=== PATIENT | male | born 1945 | race Caucasian/White ===

== ENCOUNTER 2016-08-16 08:25 | Emergency (ER) | payer OTHER ==
--- NOTE | 2016-08-16 09:44 | ED Physician Documentation ---
History of Present Illness - Stated complaint Stated Complaint: BACK PAIN - Chief complaint Chief Complaint: Back Pain - Additonal information Additional information: hx from pt 71 male R low back pain X a few weeks started a little while after doing abd crunches describes sharp occ twinges no abd pain no fever no incont or hematuria no numbness or weakness somewhat related to movements but was able to go running Review of Systems Constitutional: denies: Fever, Chills Cardiac: denies: Chest pain / pressure GI: denies: Abdominal Pain : denies: Incontinent, Hematuria Musculoskeletal: reports: Back pain Neurologic: denies: Focal weakness, Numbness Endocrine: denies: Easy bruising / bleeding Immunocompromised: denies: Immunocompromised PD PAST MEDICAL HISTORY - Past Medical History Cardiovascular: Other - Present Medications Home Medications: Ambulatory Orders Medication Instructions Recorded Confirmed Aspirin [Adult Low Dose Aspirin EC] 81 mg ORAL DAILY 01/12/16 08/16/16 Atenolol 25 mg ORAL DAILY 01/12/16 08/16/16 Lisinopril 10 mg ORAL DAILY 01/12/16 08/16/16 Simvastatin 40 mg ORAL DAILY 01/12/16 08/16/16 Carisoprodol [Soma] 350 mg PO Q8H PRN #15 tablet 08/16/16 HYDROcod/ACETAM 5/325 [[place] 5/325] 1 ea PO Q6H PRN #10 tablet 08/16/16 Lidocaine Patch 5% [Lidoderm Patch] 1 each TOP DAILY PRN #10 patch 08/16/16 - Allergies Allergies/Adverse Reactions: Allergies Allergy/AdvReac Type Severity Reaction Status Date / Time No Known Drug Allergies Allergy Verified 08/16/16 08:37 - Social History Does the pt smoke?: No Smoking Status: Never smoker PD ED PE NORMAL - Vitals Vital signs reviewed: Yes - Neck Neck: Supple, no meningeal sign - Cardiac Cardiac: RRR - Respiratory Respiratory: No respiratory distress, Clear bilaterally - Abdomen Abdomen: Soft, Non tender, Other (no pulsatile mass) - Back Back: No spinal TTP (and no redness swelling focal bony TTP), Other (pt indicates the site of his pain was right low back near SI joint - no pain now 2/ 2 took vicodin prior to ER viit) - Neuro Neuro: No motor deficit, No sensory deficit, Other (neg SLR, denies saddle anesthesia hip flexion knee ext foot dorsi plantar and great toe ext 5/5, no clonus, patellar DTR 2/4) Results - Vitals Vitals: Vital Signs - 24 hr 08/16/16 08/16/16 08:33 10:46 Temperature 36.2 C L 36.4 C L Heart Rate 58 L 59 L Respiratory 14 18 Rate Blood Pressure 170/88 H 152/83 H O2 Saturation 100 96 Oxygen O2 Source Room air - Labs Labs: Laboratory Tests 08/16/16 09:48 Creatinine 0.7 Estimated GFR (MDRD) 111 - Rads (name of study) CT angio Radiology: See rad report (no AAA or dissection, no bony abn) PD MEDICAL DECISION MAKING - ED course ED course: probably just muscular pain but unable to repsoduce at this time and pt is 71 - will image to rule out aortic etiology etc - CT neg for acute - likely muscular after all will dc Departure - Departure Disposition: 01 Home, Self Care Clinical Impression: Back pain Qualifiers: Back pain location: low back pain Chronicity: acute Back pain laterality: right Sciatica presence: without sciatica Qualified Code(s): M54.5 - Low back pain Condition: Good Instructions: ED Back Care Tips, ED Neck Back Pain General Follow-Up: Nick Greer MD [Primary Care Provider] - Prescriptions: Lidocaine Patch 5% [Lidoderm Patch] 1 each TOP DAILY PRN #10 patch PRN Reason: Pain HYDROcod/ACETAM 5/325 [[place] 5/325] 1 ea PO Q6H PRN #10 tablet PRN Reason: Severe Pain Carisoprodol [Soma] 350 mg PO Q8H PRN #15 tablet PRN Reason: muscle spasm Comments: The labs we did were kidney function. The results were as follows creatinine 0.7 GFR 111 That means your kidneys are fine The CT scan shows no aneurysm or tear of your aorta and no bony problems So the back pain is likely muscular. Take the medications as needed. Consider a massage or chiropractor. Drink plenty of fluids today to flush out the CT contrast And follow up with your PMD about your blood pressure - it was high today Also . . . watch your back for any developing rash - sometimes shingles can cause severe one sided pain days to weeks before the rash shows up - if you develop a red blistered crusting rash, come back to the ER for anti-viral medications
[2016-08-16] MEDS ORDERED: LIDOCAINE PATCH 5% TOP ONE (09:50)
[2016-08-16] MEDS: LIDOCAINE PATCH 5% TOP STA (09:53)
[2016-08-16 10:07] LABS: CREATININE 0.7 mg/dL (0.6-1.2)
[2016-08-16] MEDS: IOPAMIDOL-300 100 ML VIAL IVP ONE (10:43)
--- NOTE | 2016-08-16 11:18 | CT Preliminary Report ---
Exam: CT Abdomen/Pelvis Angio IMPRESSION: 1. No abdominal aortic aneurysm or dissection. 2. Prominent stool in right hemicolon. Question constipation. 3. No bowel obstruction evident. [facility] SITE ID: [id number]
--- NOTE | 2016-08-16 11:21 | CT Report ---
EXAM: CT ANGIOGRAM ABDOMEN AND PELVIS WITH CONTRAST EXAM DATE: 08/16/2016 10:45 AM. CLINICAL HISTORY: Angio abdominal aorta. R low back pain. COMPARISONS: None. TECHNIQUE: Routine helical CT angiogram imaging was performed through the abdomen and pelvis in the a rterial phase. IV contrast: 100 cc Isovue-300. Enteric contrast: No. Reconstructions: Coronal, sagitt al, and 3D MIP reconstructions. In accordance with CT protocol optimization, one or more of the following dose reduction techniques w ere utilized for this exam: automated exposure control, adjustment of mA and/or KV based on patient s ize, or use of iterative reconstructive technique. FINDINGS: Vasculature: No aneurysm or dissection of the abdominal aorta and iliac arteries. Mild atheroscleroti c calcification. The visualized mesenteric and solid organ vascular structures are also within normal limits. Lung Bases: Pacemaker noted. Abdominal Solid Organs: Normal. The liver, spleen, pancreas, adrenal glands, gallbladder and kidneys are normal in size and demonstrate no masses or abnormal enhancement. Peritoneal Cavity: Moderate stool in right hemicolon. Fecalized appearing distal ileal contents khari tible with stasis. No dilated bowel. Appendix not identified. No inflamed appendix evident. Pelvic Organs: Normal. The bladder and visualized pelvic organs are within normal limits. Bones: Large benign hemangioma replacing majority of T12 vertebral body, sparing left posterior aspec t. Multilevel lumbar spine degenerative changes. Lower thoracic spine DISH. Other: None. IMPRESSION: 1. No abdominal aortic aneurysm or dissection. 2. Prominent stool in right hemicolon. Question constipation. 3. No bowel obstruction evident. [facility] Referring Provider Line: [phone] SITE ID: [id number]
[2016-08-16 12:01] VITALS: BP 148/80
== END 2016-08-16 12:00 | disposition home or self-care (01) ==
LOC: ED 08:25
DX: M54.5 Low back pain (principal); Z79.82 Long term (current) use of aspirin
CPT/HCPCS: 36415; 74174; 82565; 99283; 99284

== ENCOUNTER 2018-11-29 10:39 | Outpatient (CLI) | payer MEDICARE ==
--- NOTE | 2018-11-30 10:05 | XRAY Report ---
Reason: COUGH Procedure Date: 11/29/2018 Accession Number: [id number] / [id number] Procedure: WCP - Chest 2 View X-Ray CPT Code: 66579 FULL RESULT: EXAM: CHEST RADIOGRAPHY EXAM DATE: 11/29/2018 10:54 AM. CLINICAL HISTORY: COUGH. Chronic cough. COMPARISON: CHEST 1 VIEW 01/12/2016 9:58 PM. TECHNIQUE: 2 views. FINDINGS: Lungs/Pleura: No focal opacities evident. No pleural effusion. No pneumothorax. Normal volumes. Mediastinum: Atherosclerotic aortic consultations. Dual lead left subclavian pacemaker. Other: Mild right hemidiaphragm elevation as on prior exam. IMPRESSION: No consolidation evident. [facility]
== END 2018-11-29 10:40 | disposition home or self-care (01) ==
LOC: DI.WCP 10:39
PROVIDERS: ATTEND Family Medicine
DX: R05 Cough (principal); I10 Essential (primary) hypertension; E78.5 Hyperlipidemia, unspecified; Z12.5 Encounter for screening for malignant neoplasm of prostate
CPT/HCPCS: 36415; 71046; 80053; 80061; 85025; G0103; 83721; 84153

== ENCOUNTER 2018-11-29 11:08 | Outpatient (CLI) | payer MEDICARE ==
[2018-11-29 18:35] LABS: BASOPHILS % (AUTO) 0.4 %; EOSINOPHILS % (AUTO) 0.4 %; HGB - HEMOGLOBIN 15.1 g/dL (14.0-18.0); LYMPHOCYTES # (AUTO) 0.8 10^3/uL (1.5-3.5); LYMPHOCYTES % (AUTO) 16.2 %; MEAN CORPUSCULAR HEMOGLOBIN 34.2 pg (27.0-31.0); MEAN CORPUSCULAR HGB CONC 33.9 g/dL (32.0-36.0); MEAN CORPUSCULAR VOLUME 100.9 fL (80.0-94.0); MONOCYTES # (AUTO) 0.8 10^3/uL (0.0-1.0); MONOCYTES % (AUTO) 16.2 %; NEUTROPHILS # (AUTO) 3.3 10^3/uL (1.5-6.6); NEUTROPHILS % (AUTO) 65.6 %; PLT - PLATELET COUNT 293 10^3/uL (130-450); RED BLOOD COUNT 4.41 10^6/uL (4.70-6.10); RED CELL DISTRIBUTION WIDTH 12.4 % (12.0-15.0)
[2018-11-29 18:53] LABS: ALBUMIN 4.6 g/dL (3.2-5.5); ALBUMIN/GLOBULIN RATIO 1.8 (1.0-2.2); ALKALINE PHOSPHATASE 66 IU/L (42-121); ALT ALANINE AMINOTRANSFERASE 23 IU/L (10-60); AST ASPARTATE AMINOTRANSFERASE 25 IU/L (10-42); BILIRUBIN,TOTAL 1.3 mg/dL (0.2-1.0); BUN - BLOOD UREA NITROGEN 9 mg/dL (6-20); CALCIUM 9.6 mg/dL (8.5-10.3); CARBON DIOXIDE - CO2 25 mmol/L (21-32); CHLORIDE 98 mmol/L (101-111); CHOL/HDL RATIO 2.6 (<5.0); CHOLESTEROL 188 mg/dL; CREATININE 0.8 mg/dL (0.6-1.2); GFR - MDRD 94 (>89); GLUCOSE 98 mg/dL (70-100); HDL CHOLESTEROL 72 mg/dL; LDL CHOLESTEROL,CALCULATED 101 mg/dL; LDL/HDL RATIO 1.4 (<3.6); SODIUM 135 mmol/L (135-145); TOTAL PROTEIN 7.2 g/dL (6.7-8.2); VLDL CHOLESTEROL 15 mg/dL
== END 2018-11-29 11:09 | disposition home or self-care (01) ==
LOC: LAB.WCP 11:08
PROVIDERS: ATTEND Family Medicine
DX: I10 Essential (primary) hypertension (principal); E78.5 Hyperlipidemia, unspecified; Z12.5 Encounter for screening for malignant neoplasm of prostate
CPT/HCPCS: 36415; 80053; 80061; 83721; 84153; 85025

== ENCOUNTER 2019-11-11 10:52 | Outpatient (CLI) | payer MEDICARE | END 2019-11-11 10:53 | disposition home or self-care (01) | LOC: LAB 10:52 | PROVIDERS: ATTEND Family Medicine | DX: Z11.59 Encounter for screening for other viral diseases (principal) ==

== ENCOUNTER 2021-02-19 07:56 | Outpatient (CLI) | payer MEDICARE, OTHER ==
--- NOTE | 2021-02-19 13:06 | DEXA Report ---
PROCEDURE: Dexa Spine and/or Hip INDICATIONS: OSTEOPENIA TECHNIQUE: Dual energy x-ray absorptiometry (DXA) was performed on a T[employer] System. Regions measur ed are the AP Spine, femoral neck, and if needed forearm. COMPARISON: None. FINDINGS: Lumbar Spine: Bone Mineral Density 1.253 g/cm/cm,T score 0.3, normal bone density Left Femoral Neck: Bone Mineral Density 0.941 g/cm/cm, T score -1.1, osteopenia (T score greater or equal to -1.0: NORMAL) (T score from -1.1 to -2.4: OSTEOPENIA) (T score less than or equal to -2.5 to: OSTEOPOROSIS) Impression: Osteopenia. Patient is at increased risk for fracture. Patients with diagnosis of osteoporosis or osteopenia should have regular bone mineral density assess ment. For those eligible for Medicare, routine testing is allowed once every 2 years. Testing frequ ency can be increased for patients who have rapidly progressing disease or for those who are receivin g medical therapy to restore bone mass. Reviewed by: Kalpesh Velez MD on 02/19/2021 1:04 PM PDT Approved by: Kalpesh Velez MD on 02/19/2021 1:04 PM PDT Station ID: [id number]
== END 2021-02-19 07:57 | disposition home or self-care (01) ==
LOC: DI 07:56
PROVIDERS: ATTEND Nurse Practitioner Adult Health
DX: M85.88 Other specified disorders of bone density and structure, other site (principal)

== ENCOUNTER 2021-09-06 07:56 | Outpatient (CLI) | payer OTHER | END 2021-09-06 07:57 | disposition home or self-care (01) | LOC: LAB 07:56 | PROVIDERS: ATTEND Nurse Practitioner Family | DX: I10 Essential (primary) hypertension (principal); E78.5 Hyperlipidemia, unspecified | CPT/HCPCS: 80053; 80061; 83721; 84443; 85025 ==

== ENCOUNTER 2021-09-07 07:59 | Outpatient (CLI) | payer OTHER ==
[2021-09-07 08:10] LABS: BASOPHILS % (AUTO) 0.5 %; EOSINOPHILS # (AUTO) 0.1 10^3/uL (0.0-0.7); EOSINOPHILS % (AUTO) 1.5 %; HCT - HEMATOCRIT 42.2 % (42.0-52.0); HGB - HEMOGLOBIN 15.4 g/dL (14.0-18.0); LYMPHOCYTES # (AUTO) 0.8 10^3/uL (1.5-3.5); LYMPHOCYTES % (AUTO) 20.6 %; MEAN CORPUSCULAR HEMOGLOBIN 35.5 pg (27.0-31.0); MEAN CORPUSCULAR HGB CONC 36.5 g/dL (32.0-36.0); MEAN CORPUSCULAR VOLUME 97.2 fL (80.0-94.0); MEAN PLATELET VOLUME 8.3 fL (7.4-11.4); MONOCYTES # (AUTO) 0.9 10^3/uL (0.0-1.0); MONOCYTES % (AUTO) 21.6 %; NEUTROPHILS # (AUTO) 2.2 10^3/uL (1.5-6.6); NEUTROPHILS % (AUTO) 55.3 %; PLT - PLATELET COUNT 260 10^3/uL (130-450); RED BLOOD COUNT 4.34 10^6/uL (4.70-6.10); RED CELL DISTRIBUTION WIDTH 12.2 % (12.0-15.0); WHITE BLOOD COUNT 3.9 x10^3/uL (4.8-10.8)
[2021-09-07 08:30] LABS: ALBUMIN 4.1 g/dL (3.2-5.5); ALBUMIN/GLOBULIN RATIO 1.3 (1.0-2.2); ALKALINE PHOSPHATASE 66 IU/L (42-121); ALT ALANINE AMINOTRANSFERASE 25 IU/L (10-60); AST ASPARTATE AMINOTRANSFERASE 26 IU/L (10-42); BUN - BLOOD UREA NITROGEN 11 mg/dL (6-20); CALCIUM 9.4 mg/dL (8.5-10.3); CARBON DIOXIDE - CO2 24 mmol/L (21-32); CHLORIDE 99 mmol/L (101-111); CHOL/HDL RATIO 3.4 (<5.0); CHOLESTEROL 225 mg/dL; CREATININE 0.7 mg/dL (0.6-1.2); GFR - MDRD 109 (>89); GLUCOSE 102 mg/dL (70-100); HDL CHOLESTEROL 67 mg/dL; LDL CHOLESTEROL,CALCULATED 130 mg/dL; LDL/HDL RATIO 1.9 (<3.6); POTASSIUM 4.3 mmol/L (3.5-5.0); SODIUM 133 mmol/L (135-145); TOTAL PROTEIN 7.3 g/dL (6.7-8.2); TRIGLYCERIDES 141 mg/dL; VLDL CHOLESTEROL 28 mg/dL
[2021-09-07 08:40] LABS: THYROID STIMULATING HORMONE 1.05 uIU/mL (0.34-5.60)
== END 2021-09-07 08:00 | disposition home or self-care (01) ==
LOC: LAB 07:59
PROVIDERS: ATTEND Nurse Practitioner Family
DX: I10 Essential (primary) hypertension (principal); E78.5 Hyperlipidemia, unspecified
CPT/HCPCS: 36415; 80053; 80061; 83721; 84443; 85025

== ENCOUNTER 2021-11-29 18:47 | Outpatient (CLI) | payer OTHER | END 2021-11-29 18:48 | disposition critical access hospital (66) | LOC: EMS 18:47 | DX: R55 Syncope and collapse (principal) | CPT/HCPCS: A0425; A0427 ==

== ENCOUNTER 2021-11-29 18:53 | Emergency (ER) | payer OTHER ==
--- NOTE | 2021-11-29 19:29 | ED Physician Documentation ---
PD HPI SYNCOPE - Stated complaint Stated Complaint: SYNCOPE - Chief complaint Chief Complaint: Neuro - History obtained from History obtained from: Patient, Family - History of Present Illness Witnessed: Witnessed Timing - onset: How many minutes ago (60) Duration: Minutes - Additional information Additional information: 76-year-old male with history of vasovagal syncope, pacemaker in place presents by EMS from restaurant for syncopal episode that occurred just prior to arrival. Patient was eating dinner when all of a sudden he slumped forward and went unresponsive for "3 to 4 minutes" per girlfriend. Girlfriend states that there were physician bystanders at the restaurant, who laid him on the floor and measured his pulse. When EMS arrived the patient had returned to his baseline function. In route the patient's blood pressure was 80s systolic, other vital signs within normal limits. girlfriend said has happened in the past, at that time he was evaluated here in the [facility] emergency department and he was told to decrease his dose of blood pressure medications. Patient currently feels fine, denies complaints. He states that this is a typical syncopal episode for him. Girlfriend states that the patient is somewhat obsessive about keeping his blood pressure low and he takes 4 different medications for BP control. Review of Systems Ten Systems: 10 systems reviewed and negative Constitutional: denies: Fever, Chills, Myalgias Ears: denies: Loss of hearing, Ear pain, Drainage/discharge Cardiac: denies: Chest pain / pressure, Palpitations Respiratory: denies: Dyspnea, Cough Neurologic: reports: Syncope. denies: Generalized weakness, Focal weakness, Numbness PD PAST MEDICAL HISTORY - Past Medical History Past Medical History: Yes Cardiovascular: Other - Past Surgical History Cardiovascular: Pacemaker - Present Medications Home Medications: Ambulatory Orders Medication Instructions Recorded Confirmed Aspirin [Adult Low Dose Aspirin EC] 81 mg ORAL DAILY 01/12/16 08/16/16 Atenolol 25 mg ORAL DAILY 01/12/16 08/16/16 Lisinopril 10 mg ORAL DAILY 01/12/16 08/16/16 Simvastatin 40 mg ORAL DAILY 01/12/16 08/16/16 Carisoprodol [Soma] 350 mg PO Q8H PRN #15 tablet 08/16/16 HYDROcod/ACETAM 5/325 [[place] 5/325] 1 ea PO Q6H PRN #10 tablet 08/16/16 Lidocaine Patch 5% [Lidoderm Patch] 1 each TOP DAILY PRN #10 patch 08/16/16 - Allergies Allergies/Adverse Reactions: Allergies Allergy/AdvReac Type Severity Reaction Status Date / Time No Known Drug Allergies Allergy Verified 11/29/21 19:09 - Social History Does the pt smoke?: No Smoking Status: Never smoker Does the pt drink ETOH?: No Does the pt have substance abuse?: No - Immunizations Immunizations are current?: Yes - POLST Patient has POLST: No PD ED PE NORMAL - Vitals Vital signs reviewed: Yes - General General: Alert and oriented X 3, No acute distress, Well developed/nourished - HEENT HEENT: Atraumatic, PERRL, EOMI, Ears normal - Neck Neck: Supple, no meningeal sign, No bony TTP, No adenopathy, C-Spine cleared by NEXUS criteria - Cardiac Cardiac: RRR, No murmur, Strong equal pulses - Respiratory Respiratory: No respiratory distress, Clear bilaterally - Abdomen Abdomen: Soft, Non tender, Non distended, No organomegaly - Male Male : Deferred - Rectal Rectal: Deferred - Back Back: No CVA TTP, No spinal TTP - Derm Derm: Normal color, Warm and dry, No rash - Extremities Extremities: No deformity, No tenderness to palpate, Normal ROM s pain, No edema - Neuro Neuro: Alert and oriented X 3, dispatcher motor vehicle 2-12 intact, No motor deficit, No sensory deficit, Normal speech - Psych Psych: Normal mood, Normal affect Results - Vitals Vitals: Vital Signs - 24 hr 11/29/21 11/29/21 11/30/21 19:05 19:39 01:09 Temperature 37.0 C Heart Rate 60 68 60 Respiratory 13 16 18 Rate Blood Pressure 92/65 86/47 L 126/66 O2 Saturation 95 93 95 Oxygen O2 Source Room air - EKG (time done) 1920 Rate: Rate (enter#) (60) Rhythm: NSR Arp: Normal Intervals: Normal MI (atrial paced) QRS: Normal Ischemia: Normal ST segments - Labs Labs: Laboratory Tests 11/29/21 11/29/21 11/29/21 19:33 19:33 19:33 WBC 5.2 RBC 3.75 L Hgb 13.5 L Hct 37.2 L MCV 99.2 H MCH 36.0 H MCHC 36.3 H RDW 12.6 Plt Count 260 MPV 8.7 Neut # (Auto) 3.4 Lymph # (Auto) 0.8 L [place] # (Auto) 0.8 Eos # (Auto) 0.1 Baso # (Auto) 0.0 Absolute Nucleated RBC 0.00 Nucleated RBC % 0.0 Sodium 133 L Potassium 3.3 L Chloride 99 L Carbon Dioxide 22 Anion Gap 12.0 BUN 13 Creatinine 1.1 Estimated GFR (MDRD) 65 L Glucose 126 H Calcium 9.2 Total Bilirubin 1.0 AST 22 ALT 23 Alkaline Phosphatase 59 Troponin I High Sens 9.8 Total Protein 6.2 L Albumin 3.9 Globulin 2.3 Albumin/Globulin Ratio 1.7 Lipase 39 PD MEDICAL DECISION MAKING - ED course Complexity details: reviewed old records, reviewed results, re-evaluated patient ED course: 76-year-old male, otherwise well-appearing presenting for syncopal episode. Patient does have a history of syncopal episodes, he states that this is similar to previous. Girlfriend at bedside states that the patient is neurotic about his blood pressure and make sure that it stays "very low". Patient's vital signs are unremarkable at this time, patient states that he feels normal and does not even want evaluation. Labs unremarkable. Patient resting comfortably in bed. Unable to contact [employer] for pacemaker interrogation, her machine is not functioning and representatives not able to assist over phone. Patient states that he has a machine at home and he does not want to stay in the ER any longer. He states that he will use the device tomorrow morning to interrogate his pacemaker and if there are any issues whatsoever he will come back for evaluation. Patient understands the risks of leaving early including potential return of syncopal episodes. Patient states he understands but does not want to stay in the hospital any longer and wants to go home.Discharged in stable condition with his girlfriend. Departure - Departure Disposition: 01 Home, Self Care Clinical Impression: Syncopal episodes Condition: Stable Instructions: ED Fainting Unkn Cause Comments: Reduce your dosages of blood pressure medications as this could be contributing to your syncope. Use your machine at home to interrogate your pacemaker. If you have any further episodes of syncope, experience chest pain, shortness of breath, any other symptoms please return immediately for repeat evaluation. Discharge Date/Time: 11/30/21 01:54
[2021-11-29 19:42] LABS: BASOPHILS % (AUTO) 0.4 %; EOSINOPHILS # (AUTO) 0.1 10^3/uL (0.0-0.7); EOSINOPHILS % (AUTO) 1.2 %; HCT - HEMATOCRIT 37.2 % (42.0-52.0); HGB - HEMOGLOBIN 13.5 g/dL (14.0-18.0); LYMPHOCYTES # (AUTO) 0.8 10^3/uL (1.5-3.5); LYMPHOCYTES % (AUTO) 16.2 %; MEAN CORPUSCULAR HGB CONC 36.3 g/dL (32.0-36.0); MEAN CORPUSCULAR VOLUME 99.2 fL (80.0-94.0); MEAN PLATELET VOLUME 8.7 fL (7.4-11.4); MONOCYTES # (AUTO) 0.8 10^3/uL (0.0-1.0); MONOCYTES % (AUTO) 15.5 %; NEUTROPHILS # (AUTO) 3.4 10^3/uL (1.5-6.6); NEUTROPHILS % (AUTO) 66.1 %; PLT - PLATELET COUNT 260 10^3/uL (130-450); RED BLOOD COUNT 3.75 10^6/uL (4.70-6.10); RED CELL DISTRIBUTION WIDTH 12.6 % (12.0-15.0); WHITE BLOOD COUNT 5.2 x10^3/uL (4.8-10.8)
[2021-11-29 19:55] LABS: ALBUMIN 3.9 g/dL (3.2-5.5); ALBUMIN/GLOBULIN RATIO 1.7 (1.0-2.2); CALCIUM 9.2 mg/dL (8.5-10.3); CREATININE 1.1 mg/dL (0.6-1.2); POTASSIUM 3.3 mmol/L (3.5-5.0); TOTAL PROTEIN 6.2 g/dL (6.7-8.2)
--- NOTE | 2021-11-29 20:15 | XRAY Report ---
PROCEDURE: Chest 1 View X-Ray INDICATIONS: Chest pain TECHNIQUE: One view of the chest was acquired. COMPARISON: 11/29/2018 FINDINGS: Surgical changes and devices: Left cardiac pacer device is in place. Lungs and pleura: Mild hazy opacities of the bilateral costophrenic angles with blunting of the right costophrenic angle. It is compatible with small bilateral pleural effusions larger on the right. Str eaky right basilar opacities noted. Mild patchy left basilar opacity. No focal consolidation. No pneu mothorax. Mediastinum: Mediastinal contours appear normal. Heart size is normal. Bones and chest wall: No suspicious bony lesions. Overlying soft tissues appear unremarkable. IMPRESSION: Small right greater than left bilateral pleural effusions with patchy bibasilar opacities. Findings a re likely related to atelectasis. Early developing airspace disease not excluded if clinically approp riate. Recommend follow-up imaging to document resolution of findings and return to baseline exam. Reviewed by: Kalpesh Velez MD on 11/29/2021 8:14 PM PDT Approved by: Kalpesh Velez MD on 11/29/2021 8:14 PM PDT Station ID: [id number]
[2021-11-30 01:41] VITALS: BP 126/66
== END 2021-11-30 01:54 | disposition home or self-care (01) ==
LOC: ED 18:53
DX: R55 Syncope and collapse (principal)
CPT/HCPCS: 36415; 80053; 83690; 84484; 85025; 93005; 99283; 99284

== ENCOUNTER 2022-01-10 08:17 | Outpatient (CLI) | payer OTHER ==
[2022-01-10 12:29] LABS: BASOPHILS % (AUTO) 0.1 %; EOSINOPHILS % (AUTO) 0.4 %; HCT - HEMATOCRIT 42.5 % (42.0-52.0); HGB - HEMOGLOBIN 15.1 g/dL (14.0-18.0); LYMPHOCYTES # (AUTO) 0.7 10^3/uL (1.5-3.5); LYMPHOCYTES % (AUTO) 10.1 %; MEAN CORPUSCULAR HEMOGLOBIN 35.3 pg (27.0-31.0); MEAN CORPUSCULAR HGB CONC 35.5 g/dL (32.0-36.0); MEAN CORPUSCULAR VOLUME 99.3 fL (80.0-94.0); MEAN PLATELET VOLUME 8.8 fL (7.4-11.4); MONOCYTES # (AUTO) 1.2 10^3/uL (0.0-1.0); NEUTROPHILS # (AUTO) 4.9 10^3/uL (1.5-6.6); NEUTROPHILS % (AUTO) 71.8 %; PLT - PLATELET COUNT 346 10^3/uL (130-450); RED BLOOD COUNT 4.28 10^6/uL (4.70-6.10); RED CELL DISTRIBUTION WIDTH 12.2 % (12.0-15.0); WHITE BLOOD COUNT 6.8 x10^3/uL (4.8-10.8)
[2022-01-10 12:42] LABS: ALBUMIN 4.2 g/dL (3.2-5.5); ALBUMIN/GLOBULIN RATIO 1.4 (1.0-2.2); CALCIUM 9.5 mg/dL (8.5-10.3); CREATININE 0.6 mg/dL (0.6-1.2); POTASSIUM 4.5 mmol/L (3.5-5.0); TOTAL PROTEIN 7.2 g/dL (6.7-8.2)
[2022-01-10 19:51] LABS: ESTIMATED AVERAGE GLUCOSE 105 mg/dL (70-100); HEMOGLOBIN A1c% 5.3 % (4.27-6.07)
== END 2022-01-10 08:18 | disposition home or self-care (01) ==
LOC: LAB.N 08:17
PROVIDERS: ATTEND Nurse Practitioner Family
DX: E87.6 Hypokalemia (principal); D50.9 Iron deficiency anemia, unspecified; Z13.1 Encounter for screening for diabetes mellitus
CPT/HCPCS: 36415; 80053; 83036; 85025

== ENCOUNTER 2022-02-08 09:33 | Outpatient (CLI) | payer OTHER ==
[2022-02-07 18:39] LABS: BILIRUBIN,URINE NEGATIVE (NEGATIVE); GLUCOSE, URINE (UA) NEGATIVE (NEGATIVE); KETONES,URINE (UA) TRACE mg/dL (NEGATIVE); LEUKOCYTE ESTERASE, URINE NEGATIVE (NEGATIVE); NITRITE,URINE NEGATIVE (NEGATIVE); OCCULT BLOOD,URINE NEGATIVE (NEGATIVE); PH,URINE 7.5 PH (5.0-7.5); PROTEIN,URINE NEGATIVE (NEGATIVE); UROBILINOGEN,URINE 0.2 (NORMAL) E.U./dL (NORMAL)
[2022-02-07 18:40] LABS: CLARITY,URINE CLEAR (CLEAR)
[2022-02-07 19:17] LABS: BACTERIA,URINE None Seen /HPF (None Seen); RBC,URINE 0-5 /HPF (0-5); SQUAMOUS EPITHELIAL CELL,UR NONE SEEN (<= Few); WBC,URINE 0-3 /HPF (0-3)
[2022-02-08 10:52] LABS: CHOL/HDL RATIO 2.8 (<5.0); CHOLESTEROL 171 mg/dL; CRP - C-REACTIVE PROTEIN 7.6 mg/dL (0-1.0); HDL CHOLESTEROL 62 mg/dL; LDL CHOLESTEROL,CALCULATED 95 mg/dL; LDL/HDL RATIO 1.5 (<3.6); TRIGLYCERIDES 71 mg/dL; VLDL CHOLESTEROL 14 mg/dL
[2022-02-08 10:57] LABS: BILIRUBIN,URINE NEGATIVE (NEGATIVE); GLUCOSE, URINE (UA) NEGATIVE (NEGATIVE); KETONES,URINE (UA) NEGATIVE (NEGATIVE); LEUKOCYTE ESTERASE, URINE NEGATIVE (NEGATIVE); NITRITE,URINE NEGATIVE (NEGATIVE); OCCULT BLOOD,URINE NEGATIVE (NEGATIVE); PROTEIN,URINE NEGATIVE (NEGATIVE); UROBILINOGEN,URINE 0.2 (NORMAL) E.U./dL (NORMAL)
[2022-02-08 11:13] LABS: BACTERIA,URINE None Seen /HPF (None Seen); CLARITY,URINE CLEAR (CLEAR); RBC,URINE None Seen /HPF (0-5); SQUAMOUS EPITHELIAL CELL,UR NONE SEEN (<= Few); WBC,URINE 0-3 /HPF (0-3)
[2022-02-08 11:53] LABS: RHEUMATOID FACTOR NEGATIVE (Negative)
== END 2022-02-08 09:34 | disposition home or self-care (01) ==
LOC: LAB.WCP 09:33
PROVIDERS: ATTEND Physician Assistant
DX: R35.0 Frequency of micturition (principal); E78.5 Hyperlipidemia, unspecified; M25.50 Pain in unspecified joint
CPT/HCPCS: 36415; 80061; 81001; 83721; 84550; 85651; 86038; 86140; 86200; 86430; 87086

== ENCOUNTER 2022-03-01 21:10 | Outpatient (CLI) | payer OTHER | END 2022-03-01 21:11 | disposition critical access hospital (66) | LOC: EMS 21:10 | DX: R55 Syncope and collapse (principal); R53.1 Weakness; R42 Dizziness and giddiness | CPT/HCPCS: A0425; A0427 ==

== ENCOUNTER 2022-03-01 21:17 | Emergency (ER) | payer OTHER ==
[2022-03-01] MEDS ORDERED: SODIUM CHLORIDE 0.9% 1,000 ML IV STA (21:33)
[2022-03-01 21:45] LABS: BASOPHILS % (AUTO) 0.4 %; EOSINOPHILS # (AUTO) 0.1 10^3/uL (0.0-0.7); EOSINOPHILS % (AUTO) 1.1 %; HCT - HEMATOCRIT 33.2 % (42.0-52.0); HGB - HEMOGLOBIN 11.2 g/dL (14.0-18.0); LYMPHOCYTES % (AUTO) 18.4 %; MEAN CORPUSCULAR HEMOGLOBIN 33.1 pg (27.0-31.0); MEAN CORPUSCULAR HGB CONC 33.7 g/dL (32.0-36.0); MEAN CORPUSCULAR VOLUME 98.2 fL (80.0-94.0); MEAN PLATELET VOLUME 7.8 fL (7.4-11.4); MONOCYTES # (AUTO) 0.9 10^3/uL (0.0-1.0); MONOCYTES % (AUTO) 16.4 %; NEUTROPHILS # (AUTO) 3.5 10^3/uL (1.5-6.6); PLT - PLATELET COUNT 351 10^3/uL (130-450); RED BLOOD COUNT 3.38 10^6/uL (4.70-6.10); RED CELL DISTRIBUTION WIDTH 12.5 % (12.0-15.0); WHITE BLOOD COUNT 5.5 x10^3/uL (4.8-10.8)
[2022-03-01 21:59] LABS: ALBUMIN 2.9 g/dL (3.2-5.5); BILIRUBIN,TOTAL 0.3 mg/dL (0.2-1.0); CALCIUM 8.6 mg/dL (8.5-10.3); CREATININE 1.1 mg/dL (0.6-1.2); POTASSIUM 3.5 mmol/L (3.5-5.0); TOTAL PROTEIN 5.7 g/dL (6.7-8.2)
--- NOTE | 2022-03-01 22:22 | XRAY Report ---
PROCEDURE: Chest 1 View X-Ray INDICATIONS: syncope TECHNIQUE: One view of the chest was acquired. COMPARISON: Chest plain films 11/29/2021 and 01/12/2016 FINDINGS: Surgical changes and devices: Cardiac pacemaking device and dual chamber leads appear normal Lungs and pleura: No pleural effusions or pneumothorax. Lungs are mildly abnormal with a mild inter stitial prominence. Mediastinum: Mediastinal contours appear normal. Heart size is normal. Bones and chest wall: No suspicious bony lesions. Overlying soft tissues appear unremarkable. IMPRESSION: Mild interstitial prominence but no pneumonia found. Pacemaker in place. The interstitial prominence may reflect prior smoking history. Reviewed by: Kurtis Farias MD on 03/01/2022 10:20 PM PDT Approved by: Kurtis Farias MD on 03/01/2022 10:20 PM PDT Station ID: [id number]
--- NOTE | 2022-03-01 22:36 | ED Physician Documentation ---
History of Present Illness - Stated complaint Stated Complaint: SYNCOPE X 2 - Chief complaint Chief Complaint: Neuro - History obtained from History obtained from: Patient - Additonal information Additional information: Patient is a 77-year-old male with a history of a pacemaker presenting for evaluation of syncope. This evening patient had a [place] and have a glass of wine at dinner. He was laying down when he needed to use the bathroom and had a bowel movement. When he went to stand up from the toilet he had a brief syncopal episode. He did not fall or hit his head. When EMS arrived they tried to stand him off and again he had another episode of brief syncope. He was noted to have a blood pressure of 70 systolic. Patient reports having a history of similar episodes of syncope related to low blood pressure When he has had alcohol. He has been taking his antihypertensives. He denies a headache, chest pain, difficulty breathing, abdominal pain, vomiting. He currently reports f eeling well. Review of Systems Constitutional: denies: Fever Nose: denies: Congestion Throat: denies: Sore throat Cardiac: denies: Chest pain / pressure Respiratory: denies: Dyspnea GI: denies: Abdominal Pain, Vomiting : denies: Dysuria Musculoskeletal: denies: Back pain Neurologic: reports: Syncope. denies: Headache PD PAST MEDICAL HISTORY - Past Medical History Cardiovascular: Other - Past Surgical History Cardiovascular: Pacemaker - Present Medications Home Medications: Ambulatory Orders Medication Instructions Recorded Confirmed Aspirin [Adult Low Dose Aspirin EC] 81 mg ORAL DAILY 01/12/16 08/16/16 Atenolol 25 mg ORAL DAILY 01/12/16 08/16/16 Lisinopril 10 mg ORAL DAILY 01/12/16 08/16/16 Simvastatin 40 mg ORAL DAILY 01/12/16 08/16/16 Carisoprodol [Soma] 350 mg PO Q8H PRN #15 tablet 08/16/16 HYDROcod/ACETAM 5/325 [[place] 5/325] 1 ea PO Q6H PRN #10 tablet 08/16/16 Lidocaine Patch 5% [Lidoderm Patch] 1 each TOP DAILY PRN #10 patch 08/16/16 - Allergies Allergies/Adverse Reactions: Allergies Allergy/AdvReac Type Severity Reaction Status Date / Time No Known Drug Allergies Allergy Verified 03/01/22 21:27 - Social History Does the pt smoke?: No Smoking Status: Never smoker Does the pt drink ETOH?: No Does the pt have substance abuse?: No - Immunizations Immunizations are current?: Yes - POLST Patient has POLST: No PD ED PE NORMAL - General General: Alert and oriented X 3, No acute distress, Well developed/nourished - HEENT HEENT: Atraumatic, Moist mucous membranes - Neck Neck: Supple, no meningeal sign - Cardiac Cardiac: RRR, Strong equal pulses - Respiratory Respiratory: No respiratory distress, Clear bilaterally - Abdomen Abdomen: Soft, Non tender, Non distended - Derm Derm: Warm and dry - Extremities Extremities: No edema - Neuro Neuro: Alert and oriented X 3, kennel assistant 2-12 intact, No motor deficit, No sensory deficit, Normal speech Results - Vitals Vitals: Vital Signs - 24 hr 03/01/22 03/01/22 03/02/22 21:22 23:27 00:57 Temperature 35.7 C L Heart Rate 60 67 68 Heart Rate [ 68 Sitting] Heart Rate [ 68 Standing] Heart Rate [ 73 Supine] Respiratory 18 13 17 Rate Blood Pressure 94/50 L 103/59 L 110/62 Blood Pressure 109/62 [Sitting] Blood Pressure 123/67 [Standing] Blood Pressure 109/67 [Supine] O2 Saturation 94 95 95 Oxygen O2 Source Room air - EKG (time done) 2116 Rate: Rate (enter#) (60) Rhythm: Other (Atrial paced rhythm) - Labs Labs: Laboratory Tests 03/01/22 03/01/22 03/01/22 21:39 21:39 21:39 WBC 5.5 RBC 3.38 L Hgb 11.2 L Hct 33.2 L MCV 98.2 H MCH 33.1 H MCHC 33.7 RDW 12.5 Plt Count 351 MPV 7.8 Neut # (Auto) 3.5 Lymph # (Auto) 1.0 L Gonzales # (Auto) 0.9 Eos # (Auto) 0.1 Baso # (Auto) 0.0 Absolute Nucleated RBC 0.00 Nucleated RBC % 0.0 Sodium 132 L Potassium 3.5 Chloride 98 L Carbon Dioxide 23 Anion Gap 11.0 BUN 17 Creatinine 1.1 Estimated GFR (MDRD) 65 L Glucose 99 Calcium 8.6 Total Bilirubin 0.3 AST 28 ALT 26 Alkaline Phosphatase 59 Troponin I High Sens 6.3 Total Protein 5.7 L Albumin 2.9 L Globulin 2.8 Albumin/Globulin Ratio 1.0 PD MEDICAL DECISION MAKING - ED course Complexity details: reviewed results, re-evaluated patient, d/w patient, d/w family ED course: 1203 - [employer] rep called back. Everything looks well with his pacemaker. There were no issues or events last night. Last event occurred February 04. Patient presenting for evaluation after syncopal episode. Found to be hypotensive. Has a had similar symptoms in the past, particularly when he has had alcohol.No head injury. Normal neuro exam. EKG is in atrial rhythm. No events from his pacemaker. Labs reviewed and without significant findings. Chest x-ray is also clear. Patient is feeling better with IV fluid bolus with improvement in blood pressure. He is no longer orthostatic. At recommended holding his blood pressure medications until close follow-up with his PCP. Patient counseled on concerning symptoms to return for. Departure - Departure Disposition: Home, Self Care Clinical Impression: Syncope Condition: Stable Instructions: ED Fainting Unkn Cause Comments: You were evaluated for fainting and found to have a low blood pressure. Your labs are overall reassuring including a marker that looks for signs of a heart attack. Your pacemaker did not show signs of any abnormal events. We have given you IV fluids and it appears that your blood pressure is better. I would hold your blood pressure medication until you talk to your primary care doctor on Thursday for close follow-up. If you have any new or worsening symptoms please return to the ER. Discharge Date/Time: 03/02/22 00:40
[2022-03-02 00:58] VITALS: BP 110/62
== END 2022-03-02 00:40 | disposition home or self-care (01) ==
LOC: EDUNIT# → ED 21:17
DX: R55 Syncope and collapse (principal)
CPT/HCPCS: 36415; 80053; 84484; 85025; 93005; 96360; 99283

== ENCOUNTER 2022-05-18 02:36 | Outpatient (CLI) | payer OTHER | END 2022-05-18 02:37 | disposition critical access hospital (66) | LOC: EMS 02:36 | DX: R25.2 Cramp and spasm (principal) | CPT/HCPCS: A0425; A0427 ==

== ENCOUNTER 2022-05-18 02:48 | Emergency (ER) | payer OTHER ==
[2022-05-18] MEDS ORDERED: SODIUM CHLORIDE 0.9% 500 ML IV STA (03:17)
[2022-05-18] MEDS ORDERED: ONDANSETRON 4 MG/2 ML VIAL IVP STA (03:18)
[2022-05-18] MEDS ORDERED: fentaNYL 100 MCG/2 ML VIAL IVP PRN (03:18)
--- NOTE | 2022-05-18 03:26 | ED Physician Documentation ---
History of Present Illness - Stated complaint Stated Complaint: SYNCOPE/ABD PX - Chief complaint Chief Complaint: Abd Pain - Additonal information Additional information: Patient is 77-year-old male presenting to the emergency department with chief complaints of syncope and abdominal pain. This evening while using the restroom syncopized, falling off of the toilet and striking his head. Past medical significant for pacemaker placement. He denies use of blood thinning medications. Reports when he woke he was generally weak and unable to rise and began having severe cramping abdominal pain. Continues to have abdominal pain here in the emergency department. No associated nausea, vomiting or diarrhea. Reports prior to his syncope he otherwise felt well.He has presented to the emergency department for similar syncope symptoms in the past associated with alcohol intake and does report that he had 2 cocktails this evening however the abdominal pain he is experiencing is new. Review of Systems Constitutional: denies: Fever Eyes: denies: Loss of vision Ears: denies: Loss of hearing Nose: denies: Rhinorrhea / runny nose Throat: denies: Dental pain / toothache Cardiac: denies: Chest pain / pressure Respiratory: denies: Dyspnea GI: reports: Abdominal Pain Musculoskeletal: denies: Neck pain Neurologic: reports: Syncope PD PAST MEDICAL HISTORY - Past Medical History Cardiovascular: Other - Past Surgical History Cardiovascular: Pacemaker - Present Medications Home Medications: Ambulatory Orders Medication Instructions Recorded Confirmed Aspirin [Adult Low Dose Aspirin EC] 81 mg ORAL DAILY 01/12/16 05/18/22 Atenolol 25 mg ORAL DAILY 01/12/16 05/18/22 Lisinopril 10 mg ORAL DAILY 01/12/16 05/18/22 Simvastatin 40 mg ORAL DAILY 01/12/16 05/18/22 Carisoprodol [Soma] 350 mg PO Q8H PRN #15 tablet 08/16/16 05/18/22 - Allergies Allergies/Adverse Reactions: Allergies Allergy/AdvReac Type Severity Reaction Status Date / Time No Known Drug Allergies Allergy Verified 05/18/22 03:13 - Social History Does the pt smoke?: No Smoking Status: Never smoker Does the pt drink ETOH?: No Does the pt have substance abuse?: No - Immunizations Immunizations are current?: Yes - POLST Patient has POLST: No PD ED PE NORMAL - Vitals Vital signs reviewed: Yes - General General: Alert and oriented X 3, No acute distress, Other (Patient periodically clutches his abdomen and cries out in pain.) - HEENT HEENT: Atraumatic, Pharynx benign, Other (Superficial abrasion to the posterior occiput) - Neck Neck: Supple, no meningeal sign - Cardiac Cardiac: RRR - Respiratory Respiratory: No respiratory distress - Abdomen Abdomen: Normal bowel sounds, Other (Generalized tenderness) - Male Male : Deferred - Rectal Rectal: Deferred - Back Back: No CVA TTP - Derm Derm: Normal color - Extremities Extremities: No deformity - Neuro Neuro: Alert and oriented X 3, platform builder 2-12 intact, No motor deficit, Normal speech Results - Vitals Vitals: Vital Signs - 24 hr 05/18/22 05/18/22 05/18/22 03:13 03:49 05:34 Temperature 36.7 C Heart Rate 72 64 60 Respiratory 16 16 16 Rate Blood Pressure 137/73 H 110/63 127/65 O2 Saturation 97 94 96 05/18/22 07:31 Temperature Heart Rate 64 Respiratory 18 Rate Blood Pressure 120/65 O2 Saturation 100 Oxygen O2 Source Room air Oxygen Flow Rate 2 - EKG (time done) 0325 Rate: Rate (enter#) (79) Rhythm: NSR [place]: Normal Intervals: Normal HI QRS: Normal Ischemia: Normal ST segments Compare to prior EKG: Unchanged from prior EKG Computer interpretation: Agree with computer - Labs Labs: Laboratory Tests 05/18/22 05/18/22 05/18/22 03:03 03:03 03:39 WBC 7.8 RBC 3.92 L Hgb 13.3 L Hct 37.6 L MCV 95.9 H MCH 33.9 H MCHC 35.4 RDW 13.3 Plt Count 251 MPV 8.8 Neut # (Auto) 6.0 Lymph # (Auto) 0.6 L [place] # (Auto) 1.2 H Eos # (Auto) 0.0 Baso # (Auto) 0.0 Absolute Nucleated RBC 0.00 Nucleated RBC % 0.0 PT INR Sodium 130 L Potassium 4.0 Chloride 97 L Carbon Dioxide 25 Anion Gap 8.0 BUN 15 Creatinine 0.7 Estimated GFR (MDRD) 109 Glucose 123 H Lactic Acid Calcium 8.8 Magnesium 1.9 Total Bilirubin 1.1 H AST 21 ALT 22 Alkaline Phosphatase 71 Total Creatine Kinase 66 Total Protein 6.3 L Albumin 3.6 Globulin 2.7 Albumin/Globulin Ratio 1.3 Lipase 31 Nasal Adenovirus (PCR) NOT DETECTED Nasal B. parapertussis DNA (PCR) NOT DETECTED Nasal Coronavir 229E PCR NOT DETECTED Nasal Coronavir HKU1 PCR NOT DETECTED Nasal Coronavir NL63 PCR NOT DETECTED Nasal Coronavir OC43 PCR NOT DETECTED Nasal Enterovir/Rhinovir PCR NOT DETECTED Nasal Influenza B PCR NOT DETECTED Nasal Influenza A PCR NOT DETECTED Nasal Parainfluen 1 PCR NOT DETECTED Nasal Parainfluen 2 PCR NOT DETECTED Nasal Parainfluen 3 PCR NOT DETECTED Nasal Parainfluen 4 PCR NOT DETECTED Nasal RSV (PCR) NOT DETECTED Nasal B.pertussis DNA PCR NOT DETECTED Nasal C.pneumoniae (PCR) NOT DETECTED Omar Human Metapneumo PCR NOT DETECTED Nasal M.pneumoniae (PCR) NOT DETECTED Nasal SARS-CoV-2 (PCR) NOT DETECTED Ethyl Alcohol < 5.0 05/18/22 05/18/22 03:42 03:42 WBC RBC Hgb Hct MCV MCH MCHC RDW Plt Count MPV Neut # (Auto) Lymph # (Auto) [place] # (Auto) Eos # (Auto) Baso # (Auto) Absolute Nucleated RBC Nucleated RBC % PT 10.5 INR 0.9 Sodium Potassium Chloride Carbon Dioxide Anion Gap BUN Creatinine Estimated GFR (MDRD) Glucose Lactic Acid 0.8 Calcium Magnesium Total Bilirubin AST ALT Alkaline Phosphatase Total Creatine Kinase Total Protein Albumin Globulin Albumin/Globulin Ratio Lipase Nasal Adenovirus (PCR) Nasal B. parapertussis DNA (PCR) Nasal Coronavir 229E PCR Nasal Coronavir HKU1 PCR Nasal Coronavir NL63 PCR Nasal Coronavir OC43 PCR Nasal Enterovir/Rhinovir PCR Nasal Influenza B PCR Nasal Influenza A PCR Nasal Parainfluen 1 PCR Nasal Parainfluen 2 PCR Nasal Parainfluen 3 PCR Nasal Parainfluen 4 PCR Nasal RSV (PCR) Nasal B.pertussis DNA PCR Nasal C.pneumoniae (PCR) Omar Human Metapneumo PCR Nasal M.pneumoniae (PCR) Nasal SARS-CoV-2 (PCR) Ethyl Alcohol PD Medical Decision Making - ED course Complexity details: reviewed old records, reviewed results, re-evaluated patient, d/w patient Reviewed Lab Results: Patient has a mild hyponatremia and anemia consistent with baseline. Social Determinants of Health: None Drug Therapy Requiring Monitoring for Toxicity: IV pain medication. Procedural Risk Factors Specific to Patient: None ED course: Patient is 77-year-old male presenting to the emergency department after syncopal episode with superficial abrasion to his posterior occiput and abdominal pain. Afebrile, hemodynamically stable on arrival to the emergency department. No focal or lateralizing neurologic deficits. No midline tenderness to the cervical spine and despite patient's age greater than 65 he was otherwise Nexus criteria negative. Did obtain head CT as well as CT of the abdomen pelvis. My initial interpretation of these is that they are benign studies however patient did have significant distention to his bladder. He was able to micturate in the emergency department with ease and does not appear to be suffering from urinary retention. His labs are within normal limits or nonactionable. I am waiting for formal read on his CT scan.Will be signing out to the oncoming physician pending formal reads. Please see their documentation for further detail. Departure - Departure Disposition: 01 Home, Self Care Clinical Impression: Syncope, Abrasion of scalp, Constipation Condition: Good Instructions: ED Constipation, ED Syncope Vasovagal Comments: You are seen today for an episode of passing out while on the toilet having a bowel movement. Diagnostic testing here was unremarkable except for very mild anemia which is chronic, mildly low sodium which is also chronic for you, and we did a CAT scan of your head which was without findings of trauma and a CAT scan of your belly showing "increased stool burden right hemicolon with fecalization of the terminal ileum due to bowel stasis." I have prescribed a laxative to help with that. Call your doctor to arrange a follow-up appointment, make the next available appointment. In the interim, return anytime if worse or if new symptoms develop. Discharge Date/Time: 05/18/22 07:51
[2022-05-18 03:42] LABS: BASOPHILS % (AUTO) 0.3 %; EOSINOPHILS % (AUTO) 0.1 %; HCT - HEMATOCRIT 37.6 % (42.0-52.0); HGB - HEMOGLOBIN 13.3 g/dL (14.0-18.0); LYMPHOCYTES # (AUTO) 0.6 10^3/uL (1.5-3.5); LYMPHOCYTES % (AUTO) 7.1 %; MEAN CORPUSCULAR HEMOGLOBIN 33.9 pg (27.0-31.0); MEAN CORPUSCULAR HGB CONC 35.4 g/dL (32.0-36.0); MEAN CORPUSCULAR VOLUME 95.9 fL (80.0-94.0); MEAN PLATELET VOLUME 8.8 fL (7.4-11.4); MONOCYTES # (AUTO) 1.2 10^3/uL (0.0-1.0); MONOCYTES % (AUTO) 15.3 %; NEUTROPHILS % (AUTO) 76.7 %; PLT - PLATELET COUNT 251 10^3/uL (130-450); RED BLOOD COUNT 3.92 10^6/uL (4.70-6.10); RED CELL DISTRIBUTION WIDTH 13.3 % (12.0-15.0); WHITE BLOOD COUNT 7.8 x10^3/uL (4.8-10.8)
[2022-05-18 03:50] LABS: ALBUMIN 3.6 g/dL (3.2-5.5); ALBUMIN/GLOBULIN RATIO 1.3 (1.0-2.2); ALKALINE PHOSPHATASE 71 IU/L (42-121); ALT ALANINE AMINOTRANSFERASE 22 IU/L (10-60); AST ASPARTATE AMINOTRANSFERASE 21 IU/L (10-42); BILIRUBIN,TOTAL 1.1 mg/dL (0.2-1.0); BUN - BLOOD UREA NITROGEN 15 mg/dL (6-20); CALCIUM 8.8 mg/dL (8.5-10.3); CARBON DIOXIDE - CO2 25 mmol/L (21-32); CHLORIDE 97 mmol/L (101-111); CK- CREATINE KINASE 66 IU/L (22-269); CREATININE 0.7 mg/dL (0.6-1.2); ETOH - ETHANOL < 5.0 mg/dL; GFR - MDRD 109 (>89); GLUCOSE 123 mg/dL (70-100); LIPASE 31 U/L (22-51); MAGNESIUM 1.9 mg/dL (1.7-2.8); SODIUM 130 mmol/L (135-145); TOTAL PROTEIN 6.3 g/dL (6.7-8.2)
[2022-05-18 04:04] LABS: INR 0.9 (0.8-1.2); PT - PROTHROMBIN TIME 10.5 secs (9.9-12.6)
[2022-05-18 04:30] LABS: B. PARAPERTUSSIS- RESP PCR PAN NOT DETECTED; B. PERTUSSIS- RESP PCR PANEL NOT DETECTED; C. PNEUMONIAE- RESP PCR PANEL NOT DETECTED; CORONAVIRUS 229E-RESP PCR NOT DETECTED; CORONAVIRUS HKU1-RESP PCR NOT DETECTED; CORONAVIRUS NL63-RESP PCR NOT DETECTED; CORONAVIRUS OC43-RESP PCR NOT DETECTED; HUMAN METAPNEUMOVIRUS NOT DETECTED; INFLUENZA A- RESP PCR PANEL NOT DETECTED; INFLUENZA B - RESP PCR PANEL NOT DETECTED; M. PNEUMONIAE- RESP PCR PANEL NOT DETECTED; PARAINFLUENZA VIRUS 1 NOT DETECTED; PARAINFLUENZA VIRUS 2 NOT DETECTED; PARAINFLUENZA VIRUS 3 NOT DETECTED; PARAINFLUENZA VIRUS 4 NOT DETECTED; RHINOVIRUS/ENTEROVIRUS NOT DETECTED; RSV- RESP PCR PANEL NOT DETECTED; SARS-CoV-2 -RESP PCR PANEL NOT DETECTED
[2022-05-18] MEDS ORDERED: iohexoL-300 100 ML VIAL ONE (04:31)
[2022-05-18] MEDS ORDERED: iohexoL-300 100 ML VIAL IVP ONE (05:24)
[2022-05-18] MEDS ORDERED: LACTULOSE 10 GM /15 ML UDC PO STA (07:27)
[2022-05-18] MEDS ORDERED: bisacodyL 5 MG TABLET PO STA (07:27)
--- NOTE | 2022-05-18 07:29 | ED Physician Documentation ---
ED Addendum - Addendum Addendum: 05/18/22 07:28 Patient received in signout from my partner at 7 AM. Briefly 77-year-old gentleman with pacemaker passed out while on the toilet after having a couple of alcoholic beverages. Says this happens every couple of weeks. I was asked by my partner to follow-up on CT imaging. CT imaging of the head and abdomen and pelvis were notable for increase stool burden in the right hemicolon and fecalization. He had a little bit of ooze from the abrasion on the back of his scalp. Procedure note: Scalp laceration repair Laceration very shallow, 2 cm in length. Irrigated copiously and then closed with Dermabond. He is discharged home in stable condition. Diagnoses: 1. Syncope 2. Constipation 3. Head injury
[2022-05-18 07:32] VITALS: BP 120/65
--- NOTE | 2022-05-18 08:12 | CT Report ---
PROCEDURE: HEAD WO INDICATIONS: Syncope, closed head injury TECHNIQUE: Noncontrast 4.5 mm thick angled axial sections acquired from the foramen magnum to the vertex. For r adiation dose reduction, the following was used: automated exposure control, adjustment of mA and/or kV according to patient size. COMPARISON: Correlation is made with the accompanying CT of the abdomen and pelvis. FINDINGS: Image quality: Excellent. CSF spaces: Basal cisterns are patent. No extra-axial fluid collections. Ventricles are normal in size and shape. Brain: No midline shift. No intracranial masses or hemorrhage. Rice-white matter interface is norm al. Age-appropriate brain parenchymal volume loss and chronic small vessel ischemic change can be se en. Skull and face: Calvarium and visualized facial bones are intact, without suspicious lesions. Sinuses: Visualized sinuses and mastoids are clear. IMPRESSION: No intracranial hemorrhage is seen. No significant intracranial abnormality is seen. Age-appropriate brain parenchymal volume loss and chronic small vessel ischemic change can be seen. Note: No significant discrepancy from the preliminary report. Reviewed by: Drew Torres MD on 05/18/2022 7:11 AM [facility] Approved by: Drew Torres MD on 05/18/2022 7:11 AM [facility] Station ID: [id number]
--- NOTE | 2022-05-18 08:17 | CT Report ---
PROCEDURE: ABDOMEN/PELVIS W INDICATIONS: Abd pain CONTRAST: 100 ML OMNI 300 TECHNIQUE: After the administration of IV contrast, 5 mm thick sections acquired from the diaphragms to the symp hysis. 5 mm thick coronal and sagittal reformats were acquired. For radiation dose reduction, the f ollowing was used: automated exposure control, adjustment of mA and/or kV according to patient size. COMPARISON: 08/16/2016. Correlation is also made with the accompanying head CT. FINDINGS: Image quality: Excellent. ABDOMEN: Lung bases: Mild dependent atelectasis/scarring can be seen. Lung bases otherwise are clear. Heart si ze is normal. Pacemaker leads are seen. Dense atherosclerotic calcification of the coronary arteries can be seen. Solid organs: Diffuse fatty liver infiltration can be seen. The liver demonstrates normal size and demonstrates no suspicious lesions. Gallbladder wall does not appear thickened. Biliary system i s non dilated. The spleen demonstrates normal size and demonstrates no suspicious lesions. Pancreas enhances normally. No adrenal nodules. Kidneys demonstrate normal size and enhancement, without hyd ronephrosis. Peritoneum and bowel: Bowel loops demonstrate normal wall thickness and caliber. No free fluid or a ir. There is a moderate amount of stool seen within the proximal colon. There is developing stool se en within the distal small bowel. Nodes and vessels: No retroperitoneal or mesenteric adenopathy by size criteria. Aorta and inferior vena cava are normal in size. Atherosclerotic calcification is seen. Miscellaneous: No ventral hernias. PELVIS: Genitourinary: Bladder wall thickness is normal. Miscellaneous: No inguinal hernias or adenopathy. Bones: No suspicious bony lesions. No vertebral body compression fractures. Age-appropriate degene rative changes are seen. A T12 vertebral body hemangioma is incidentally noted. IMPRESSION: No acute posttraumatic abnormality can be seen. Apparent constipation of the proximal colon, with associated developing stool within the distal small bowel, which is consistent with stagnant small bowel contents. Additional findings: Pacer leads Dense coronary artery calcification T12 vertebral body hemangioma Fatty liver infiltration Note: No significant discrepancy from the preliminary report. Reviewed by: Drew Torres MD on 05/18/2022 7:16 AM [facility] Approved by: Drew Torres MD on 05/18/2022 7:16 AM [facility] Station ID: [id number]
== END 2022-05-18 07:51 | disposition home or self-care (01) ==
LOC: EDBD → EDUNIT# → ED 02:48
DX: R55 Syncope and collapse (principal); S00.01XA Abrasion of scalp, initial encounter; W18.12XA Fall from or off toilet with subsequent striking against object, initial encounter; Y93.E8 Activity, other personal hygiene; E87.1 Hypo-osmolality and hyponatremia; D64.9 Anemia, unspecified; K59.00 Constipation, unspecified; Z20.822 Contact with and (suspected) exposure to COVID-19
CPT/HCPCS: 12001; 36415; 70450; 74177; 80053; 80320; 82550; 83605; 83690; 83735; 85025; 85610; 87633; 93005; 96361; 96374; 99284; A9270; Q9967

== ENCOUNTER 2023-01-01 10:18 | Outpatient (CLI) | payer OTHER, MEDICARE ==
[2023-01-01 17:41] LABS: BASOPHILS % (AUTO) 0.3 %; EOSINOPHILS % (AUTO) 0.5 %; HCT - HEMATOCRIT 43.1 % (42.0-52.0); HGB - HEMOGLOBIN 14.8 g/dL (14.0-18.0); LYMPHOCYTES # (AUTO) 0.7 10^3/uL (1.5-3.5); LYMPHOCYTES % (AUTO) 12.2 %; MEAN CORPUSCULAR HEMOGLOBIN 33.9 pg (27.0-31.0); MEAN CORPUSCULAR HGB CONC 34.3 g/dL (32.0-36.0); MEAN CORPUSCULAR VOLUME 98.9 fL (80.0-94.0); MEAN PLATELET VOLUME 8.7 fL (7.4-11.4); MONOCYTES # (AUTO) 0.8 10^3/uL (0.0-1.0); MONOCYTES % (AUTO) 13.5 %; NEUTROPHILS # (AUTO) 4.4 10^3/uL (1.5-6.6); NEUTROPHILS % (AUTO) 73.2 %; PLT - PLATELET COUNT 316 10^3/uL (130-450); RED BLOOD COUNT 4.36 10^6/uL (4.70-6.10); RED CELL DISTRIBUTION WIDTH 12.7 % (12.0-15.0)
[2023-01-01 18:02] LABS: ALBUMIN 4.2 g/dL (3.2-5.5); ALBUMIN/GLOBULIN RATIO 1.6 (1.0-2.2); ALKALINE PHOSPHATASE 86 IU/L (42-121); ALT ALANINE AMINOTRANSFERASE 19 IU/L (10-60); AST ASPARTATE AMINOTRANSFERASE 20 IU/L (10-42); BILIRUBIN,TOTAL 0.9 mg/dL (0.2-1.0); BUN - BLOOD UREA NITROGEN 8 mg/dL (6-20); CALCIUM 9.8 mg/dL (8.5-10.3); CARBON DIOXIDE - CO2 28 mmol/L (21-32); CHLORIDE 99 mmol/L (101-111); CHOL/HDL RATIO 2.3 (<5.0); CHOLESTEROL 178 mg/dL; CREATININE 0.6 mg/dL (0.6-1.3); CRP - C-REACTIVE PROTEIN 1.1 mg/dL (<0.5); GFR - MDRD 130 (>89); GLUCOSE 99 mg/dL (74-104); HDL CHOLESTEROL 76 mg/dL; LDL CHOLESTEROL,CALCULATED 89 mg/dL; LDL/HDL RATIO 1.2 (<3.6); POTASSIUM 4.4 mmol/L (3.5-4.5); SODIUM 133 mmol/L (135-145); TOTAL PROTEIN 6.9 g/dL (6.4-8.9); TRIGLYCERIDES 63 mg/dL (48-352); VLDL CHOLESTEROL 13 mg/dL
[2023-01-01 18:12] LABS: THYROID STIMULATING HORMONE 0.61 uIU/mL (0.34-5.60)
[2023-01-01 21:17] LABS: ESTIMATED AVERAGE GLUCOSE 105 mg/dL (70-100); HEMOGLOBIN A1c% 5.3 % (4.27-6.07)
== END 2023-01-01 10:19 | disposition home or self-care (01) ==
LOC: LAB.N 10:18
PROVIDERS: ATTEND Nurse Practitioner Family
DX: E78.5 Hyperlipidemia, unspecified (principal); I10 Essential (primary) hypertension; Z68.28 Body mass index [BMI] 28.0-28.9, adult; Z13.1 Encounter for screening for diabetes mellitus; N40.1 Benign prostatic hyperplasia with lower urinary tract symptoms; R79.82 Elevated C-reactive protein (CRP)
CPT/HCPCS: 36415; 80053; 80061; 83036; 83721; 84153; 84443; 85025; 86140

== ENCOUNTER 2023-04-06 10:20 | Emergency (ER) | payer OTHER ==
--- NOTE | 2023-04-06 10:44 | ED Physician Documentation ---
PD HPI NECK PAIN - Stated complaint Stated Complaint: NECK PX,INJURY - Chief complaint Chief Complaint: Trauma Hd/Nk - History obtained from History obtained from: Patient - Additional information Additional information: 78-year-old gentleman with history of ankylosing spondylitis, polymyalgia rheumatica, and hypertension. 4 days ago he had a mechanical trip and fall hitting his head and neck. His head is not bothering him at all, no headaches. He has persistent pain that is not improving of his neck especially if he rotates his neck. No other injuries. PD PAST MEDICAL HISTORY - Past Medical History Past Medical History: Yes Cardiovascular: Other Neuro: Fainting Musculoskeletal: Rheumatoid arthritis - Past Surgical History Past Surgical History: Yes Cardiovascular: Pacemaker - Present Medications Home Medications: Ambulatory Orders Medication Instructions Recorded Confirmed Aspirin [Adult Low Dose Aspirin EC] 81 mg ORAL DAILY 01/12/16 05/18/22 Atenolol 25 mg ORAL DAILY 01/12/16 05/18/22 Lisinopril 10 mg ORAL DAILY 01/12/16 05/18/22 Simvastatin 40 mg ORAL DAILY 01/12/16 05/18/22 Carisoprodol [Soma] 350 mg PO Q8H PRN #15 tablet 08/16/16 05/18/22 - Allergies Allergies/Adverse Reactions: Allergies Allergy/AdvReac Type Severity Reaction Status Date / Time No Known Drug Allergies Allergy Verified 04/06/23 10:30 - Social History Does the pt smoke?: No Smoking Status: Never smoker Does the pt drink ETOH?: No Does the pt have substance abuse?: No - Immunizations Immunizations are current?: Yes - POLST Patient has POLST: No PD ED PE NORMAL - Vitals Vital signs reviewed: Yes - General General: Alert and oriented X 3, No acute distress - Neck Neck: Supple, no meningeal sign, No bony TTP - Neuro Neuro: Alert and oriented X 3 Eye Opening: Spontaneous Motor: Obeys Commands Verbal: Oriented GCS Score: 15 Results - Vitals Vitals: Vital Signs - 24 hr 04/06/23 04/06/23 10:24 11:36 Temperature 36.4 C L Heart Rate 86 73 Respiratory 20 20 Rate Blood Pressure 156/89 H 180/93 H O2 Saturation 99 98 Oxygen O2 Source Room air - Rads (name of study) CT C spine Relevant Findings:: Final report received, EMP independent interpretation of test PD Medical Decision Making - ED course ED course: 78-year-old gentleman had a fall 4 days ago and has isolated neck injury. He has neuro intact. CT imaging demonstrating a C1 fracture and case discussed by phone with Dr. Reyes, neurosurgeon at [facility] who accepts in transfer. He was placed in a c-collar in triage and this is maintained on transfer. Departure - Departure Disposition: 02 Transfer Acute Care [facility]osp Clinical Impression: Closed fracture of cervical vertebra Qualifiers: Encounter type: initial encounter Cervical vertebra fracture level: C1 Fracture morphology: unspecified fracture morphology Fracture alignment: displaced Qualified Code(s): S12.000A - Unspecified displaced fracture of first cervical vertebra, initial encounter for closed fracture Condition: Stable Forms: PCP List Discharge Date/Time: 04/06/23 13:32
[2023-04-06 11:40] VITALS: BP 180/93; O2SAT 98
--- NOTE | 2023-04-06 11:50 | CT Report ---
PROCEDURE: CERVICAL SPINE WO INDICATIONS: neck inj TECHNIQUE: Noncontrast 3 mm thick sections acquired from the skull base to the T4 level. Sagittal and coronal r eformats were then constructed. For radiation dose reduction, the following was used: automated exp osure control, adjustment of mA and/or kV according to patient size. COMPARISON: None. FINDINGS: Image quality: Excellent. Bones: C1 ring fracture at the right anterior aspect with mild distraction, (2/17) and at the right posterior aspect without displacement, (2/22). No dislocations. Extensive degenerative change in the cervical spine. Visualized superior ribs are intact. Soft tissues: Prevertebral soft tissues are normal in thickness. No paravertebral hematomas. No ap ical pneumothoraces. Left pacemaker. IMPRESSION: 1. C1 ring fracture at the right anterior and right posterior aspects. 2. Extensive degenerative change in the cervical spine. Results were communicated to Dr. Aren Baldwin at 04/06/2023 11:46 AM PST. Reviewed by: Darrell Romeo MD on 04/06/2023 11:49 AM PST Approved by: Darrell Romeo MD on 04/06/2023 11:49 AM PST Station ID: [id number]
== END 2023-04-06 13:32 | disposition short-term general hospital (02) ==
LOC: ED 10:20
DX: S12.000A Unspecified displaced fracture of first cervical vertebra, initial encounter for closed fracture (principal); W19.XXXA Unspecified fall, initial encounter; I10 Essential (primary) hypertension
CPT/HCPCS: 87635; 99285

== ENCOUNTER 2023-06-02 10:14 | Outpatient (CLI) | payer OTHER ==
--- NOTE | 2023-06-02 17:17 | XRAY Report ---
PROCEDURE: Cervical Spine 2-3V INDICATIONS: C1 FX TECHNIQUE: 3 view(s) of the cervical spine were acquired. COMPARISON: CT cervical spine 04/06/2023 FINDINGS: Bones: Postsurgical fusion screw overlies C1 to consistent with previously identified C1 ring fractur e. There is relatively good anatomic alignment. Hardware is intact. The lateral masses of C1 appear i ntact on the odontoid view. No suspicious bony lesions. Soft tissues: No prevertebral soft tissue swelling. IMPRESSION: Relatively good anatomic alignment and intact hardware of C1 ring fracture effusion. Further evaluati on with CT is recommended as clinically indicated for more detail evaluation. Reviewed by: Rebeca Patel MD on 06/02/2023 5:16 PM PST Approved by: Rebeca Patel MD on 06/02/2023 5:16 PM [facility] Station ID: [id number]
== END 2023-06-02 10:15 | disposition home or self-care (01) ==
LOC: DI 10:14
DX: S12.000D Unspecified displaced fracture of first cervical vertebra, subsequent encounter for fracture with routine healing (principal)

== ENCOUNTER 2023-09-03 07:34 | Outpatient (CLI) | payer OTHER ==
[2023-09-03 07:48] LABS: BASOPHILS % (AUTO) 0.5 %; EOSINOPHILS % (AUTO) 0.7 %; HCT - HEMATOCRIT 41.5 % (42.0-52.0); HGB - HEMOGLOBIN 14.4 g/dL (14.0-18.0); LYMPHOCYTES # (AUTO) 0.6 10^3/uL (1.5-3.5); LYMPHOCYTES % (AUTO) 12.9 %; MEAN CORPUSCULAR HGB CONC 34.7 g/dL (32.0-36.0); MEAN CORPUSCULAR VOLUME 100.7 fL (80.0-94.0); MEAN PLATELET VOLUME 8.1 fL (7.4-11.4); MONOCYTES # (AUTO) 0.6 10^3/uL (0.0-1.0); MONOCYTES % (AUTO) 14.8 %; NEUTROPHILS # (AUTO) 3.1 10^3/uL (1.5-6.6); NEUTROPHILS % (AUTO) 70.6 %; PLT - PLATELET COUNT 265 10^3/uL (130-450); RED BLOOD COUNT 4.12 10^6/uL (4.70-6.10); RED CELL DISTRIBUTION WIDTH 12.5 % (12.0-15.0); WHITE BLOOD COUNT 4.3 x10^3/uL (4.8-10.8)
[2023-09-03 08:10] LABS: ALBUMIN 4.1 g/dL (3.2-5.5); ALBUMIN/GLOBULIN RATIO 1.6 (1.0-2.2); ALKALINE PHOSPHATASE 70 IU/L (42-121); ALT ALANINE AMINOTRANSFERASE 14 IU/L (10-60); AST ASPARTATE AMINOTRANSFERASE 17 IU/L (10-42); BILIRUBIN,TOTAL 0.7 mg/dL (0.2-1.0); BUN - BLOOD UREA NITROGEN 11 mg/dL (6-20); CALCIUM 9.5 mg/dL (8.5-10.3); CARBON DIOXIDE - CO2 30 mmol/L (21-32); CHLORIDE 100 mmol/L (101-111); CHOL/HDL RATIO 3.2 (<5.0); CHOLESTEROL 246 mg/dL; CREATININE 0.6 mg/dL (0.6-1.3); GFR - MDRD 130 (>89); GLUCOSE 130 mg/dL (74-104); HDL CHOLESTEROL 76 mg/dL; LDL CHOLESTEROL,CALCULATED 152 mg/dL; POTASSIUM 4.4 mmol/L (3.5-4.5); SODIUM 135 mmol/L (135-145); TOTAL PROTEIN 6.6 g/dL (6.4-8.9); TRIGLYCERIDES 90 mg/dL (48-352); VLDL CHOLESTEROL 18 mg/dL
[2023-09-03 08:21] LABS: THYROID STIMULATING HORMONE 1.36 uIU/mL (0.34-5.60)
== END 2023-09-03 07:35 | disposition home or self-care (01) ==
LOC: LAB 07:34
PROVIDERS: ATTEND Nurse Practitioner Family
DX: E78.5 Hyperlipidemia, unspecified (principal); I10 Essential (primary) hypertension
CPT/HCPCS: 36415; 80053; 80061; 83721; 84443; 85025

== ENCOUNTER 2023-09-15 10:23 | Outpatient (CLI) | payer OTHER ==
[2023-09-15 10:35] LABS: BASOPHILS % (AUTO) 0.3 %; EOSINOPHILS % (AUTO) 0.5 %; HCT - HEMATOCRIT 42.5 % (42.0-52.0); HGB - HEMOGLOBIN 14.8 g/dL (14.0-18.0); LYMPHOCYTES # (AUTO) 0.7 10^3/uL (1.5-3.5); LYMPHOCYTES % (AUTO) 11.5 %; MEAN CORPUSCULAR HEMOGLOBIN 34.4 pg (27.0-31.0); MEAN CORPUSCULAR HGB CONC 34.8 g/dL (32.0-36.0); MEAN CORPUSCULAR VOLUME 98.8 fL (80.0-94.0); MEAN PLATELET VOLUME 8.3 fL (7.4-11.4); MONOCYTES # (AUTO) 0.8 10^3/uL (0.0-1.0); MONOCYTES % (AUTO) 13.5 %; NEUTROPHILS # (AUTO) 4.5 10^3/uL (1.5-6.6); NEUTROPHILS % (AUTO) 73.7 %; PLT - PLATELET COUNT 275 10^3/uL (130-450); RED CELL DISTRIBUTION WIDTH 12.5 % (12.0-15.0); WHITE BLOOD COUNT 6.1 x10^3/uL (4.8-10.8)
== END 2023-09-15 10:24 | disposition home or self-care (01) ==
LOC: LAB 10:23
PROVIDERS: ATTEND Nurse Practitioner Family
DX: D53.9 Nutritional anemia, unspecified (principal)
CPT/HCPCS: 36415; 82607; 82746; 85025

== ENCOUNTER 2024-01-12 11:17 | Outpatient (CLI) | payer OTHER ==
--- NOTE | 2024-01-12 17:02 | DEXA Report ---
PROCEDURE: Dexa Spine and/or Hip INDICATIONS: OSTEOPENIA TECHNIQUE: Dual energy x-ray absorptiometry (DXA) was performed on a [employer] System. Regions measur ed are the AP Spine, femoral neck, and if needed forearm. COMPARISON: 02/19/2021 FINDINGS: Lumbar Spine: Bone Mineral Density: 1.363 g/cm/cm,T score: 1.0. Since the most recent prior study, there has been a statistically significant increase in bone mineral density by 6.6 percent. Left Femoral Neck: Bone Mineral Density: 0.786 g/cm/cm, T score: -2.2. Left Hip: Bone Mineral Density: 0.893 g/cm/cm,T score: -1.4. Since the most recent prior study, there has been a statistically significant decrease in bone mineral density by 5.1 percent. FRAX risk factors: 10 year risk of major osteoporotic fracture: 12.4% major osteoporotic fracture = hip, clinical vertebral, proximal humerus, distal forearm 10 year risk of hip fracture: 5.4% (T score greater or equal to -1.0: NORMAL) (T score from -1.1 to -2.4: OSTEOPENIA) (T score less than or equal to -2.5 to: OSTEOPOROSIS) Impression: By WHO criteria, this patient has low bone density (osteopenia). Interval statistical increase in bone mineral density of the lumbar spine. Interval statistical decre ase in bone mineral density of the hip. Patients with diagnosis of osteoporosis or osteopenia should have regular bone mineral density assess ment. For those eligible for Medicare, routine testing is allowed once every 2 years. Testing frequ ency can be increased for patients who have rapidly progressing disease or for those who are receivin g medical therapy to restore bone mass. Reviewed by: Donnie Coreas MD on 01/12/2024 5:01 PM PDT Approved by: Donnie Coreas MD on 01/12/2024 5:01 PM PDT Station ID: [id number]
== END 2024-01-12 11:18 | disposition home or self-care (01) ==
LOC: DI 11:17
PROVIDERS: ATTEND Nurse Practitioner Family
DX: M85.88 Other specified disorders of bone density and structure, other site (principal); S12.13 Unspecified traumatic spondylolisthesis of second cervical vertebra

== ENCOUNTER 2025-04-09 14:02 | Observation (INO) ==
--- OUTSIDE RECORDS SUMMARY | 2025-04-09 14:17 | EXTERNAL MEDICAL SUMMARY RPT | Continuity of Care Document ---
Author Organization [facility] Address [address] [place] [id number] Phone Problems date description facility 2025-02-24 15:56 Other injury of unsp ecified body region, initial encounter [facility] 2025-03-24 00:03 Cellulitis of left toe [facility] 2025-03-24 00:03 Abrasion of left forearm, initi al encounter [facility] 2025-03-24 00:03 Abrasion, left knee, initial en counter [facility] 2025-03-24 00:03 Abrasion, right lower leg, init ial encounter [facility] 2025-03-24 00:03 Contusion of left gr eat toe with damage to nail, initial encounter [facility] 2025-03-24 00:03 Fall on same level f rom slipping, tripping and stumbling without subsequent striking against object, initial encounter [facility] 2025-04-08 13:25 Local infection of t he skin and subcutaneous tissue, unspecified [facility] 2025-04-08 13:25 Open bite of left in dex finger without damage to nail, initial encounter [facility] 2025-04-08 13:25 Bitten by dog, initial encounte r [facility] 2025-04-09 00:01 Local infection of t he skin and subcutaneous tissue, unspecified [facility] 2025-04-09 00:01 Open bite of left in dex finger without damage to nail, initial encounter [facility] 2025-04-09 00:01 Bitten by dog, initial encounte r [facility] Social History date description facility
--- NOTE | 2025-04-09 14:26 | ED Physician Documentation ---
PD HPI ABD PAIN Stated complaint Stated Complaint: ABD PX Chief complaint Chief Complaint: General History obtained from History obtained from: Patient and EMS (Medic reports the patient has had general weakness and concerns about self-care. Reports the sister had called him because the patient had been not getting up and around and concern for self feeding and the house was very disheveled.) History of Present Illness Timing - onset: How many weeks ago (The patient himself states he has had generalized weakness increased over baseline the last 2 weeks or so and has been unable to get up readily and has had less appetite. He states his house has gotten disheveled just recently and previous had been more kempt.) Timing - duration: Weeks (2-3) Timing - details: Gradual onset and Still present (General weakness and less appetite. Lightheaded. He denies falls. He states he was having difficulty getting to the bathroom in the last couple of weeks.) Quality: Aching (Some intermittent lower abdominal cramping and he states last bowel movements overall but did have a large 1 yesterday. Denies pain currently.) Associated symptoms: Loss of appetite; No Fever, Vomiting, Diarrhea, Melena or Near syncope / syncope Meds/Allgy Home Medications Ambulatory Orders Medication Instructions Recorded Confirmed simvastatin 40 mg tablet 40 mg ORAL DAILY 01/12/16 alendronate 70 mg tablet 70 mg PO QWEEK 02/09/2410/26 alfuzosin 10 mg tablet,extended 10 mg PO QDAY 02/09/24 04/08/25 release 24 hr ascorbate calcium (vitamin C) PO 02/09/24 04/08/25 cholecalciferol (vitamin D3) PO 02/09/24 04/08/25 coenzyme Q10 [Co Q-10] PO 02/09/24 04/08/25 fish oil-dha-epa PO 02/09/24 04/08/25 hydrochlorothiazide 12.5 mg tablet 12.5 mg PO QAM 12/2504/08/25 lisinopril 30 mg tablet 30 mg PO QDAY 02/09/2404/08 multivitamin with iron PO 02/09/24 04/08/25 Allergies Allergies Allergy/AdvReac Type Severity Reaction Status Date / Time No Known Drug Allergies Allergy Verified 04/08/25 13:06 PFSH Active Problems All Active Problems (Updated 04/09/25 @ 16:45 by Rowdy Wen MD) Acute dehydration (Acute) Colitis (Acute) Alteration in self-care ability (Acute) General weakness (Acute) Infected dog bite of left index finger (Acute) Abrasion, right lower leg, initial encounter (Acute 09/16/23) Abrasion, left knee, initial encounter (Acute) Abrasion of left forearm, initial encounter (Acute) Cellulitis of third toe of left foot (Acute) Subungual hematoma of great toe of left foot (Acute) Skin abrasion (Acute) Fall (Acute) Elevated blood pressure reading in office with diagnosis of hypertension (Acute) Fall from slip, trip, or stumble (Acute) Rib pain on left side (Acute) Vision changes (Acute) Tinea corporis (Acute) Diarrhea (Acute) Unspecified hearing loss, bilateral (Acute 08/30/21) Sun-damaged skin (Acute 01/04/21) Seborrheic keratosis (Acute 03/24/22) Marital relationship problem (Acute 09/16/23) PTSD (post-traumatic stress disorder) (Acute 09/23/16) Polymyalgia rheumatica (Acute 03/24/22) Palpitations (Acute 03/24/22) Pain in unspecified foot (Acute 09/09/21) Obstructive sleep apnea (Acute 09/23/16) Neoplasm of uncertain behavior (Acute 02/14/21) Joint pain (Acute 02/07/22) Irritable bowel syndrome with diarrhea (Acute 09/09/21) Impingement syndrome of left shoulder (Acute 09/09/21) Hypertension (Acute 09/23/16) Hyperlipidemia (Acute 09/23/16) Fracture of neck, unspecified, subsequent encounter (Acute 05/06/23) Elevated erythrocyte sedimentation rate (Acute 02/11/22) Erectile dysfunction of organic origin (Acute 09/23/16) Dry skin (Acute 03/06/23) Costochondral chest pain (Acute 05/20/22) Colon cancer screening (Acute 09/09/21) Mckenna angioma (Acute 03/24/22) Elevated C-reactive protein (Acute 02/11/22) Neoplasm of unspecified behavior of bone, soft tissue, and skin (Acute 08/22/22) BMI 28.0-28.9,adult (Acute 12/25/22) Benign prostatic hyperplasia with lower urinary tract symptoms (Acute 12/24/21) Atopic dermatitis (Acute 03/06/23) Ankylosing spondylitis (Acute 03/24/22) Alcohol use (Acute 11/29/18) Impairment of balance (Acute) Osteopenia (Acute) Cervicalgia (Acute) Medication management (Acute) Medical History Medical History (Updated 04/09/25 @ 16:45 by Rowdy Wen MD) Headache, unspecified Abrasion, right lower leg, initial encounter Cough (11/29/18) Hypokalemia (12/30/21) Hyponatremia (04/14/23) Microcytic anemia (12/30/21) Macrocytosis (09/10/21) Macrocytic anemia (09/05/23) Surgical History Surgical History Fusion of spine of cervical region Pacemaker (08/30/21) Social History Social History Smoking Status: Current some day smoker Do you vape?: No Do you feel safe in your home environment?: Yes (APS report) History of physical, verbal, emotional, or financial abuse?: No ETOH Use: Liquor Frequency: Daily POLST Patient has POLST: No Exam Exam Vital Signs: Vital Signs x48h Temp Pulse Resp BP Pulse Ox 04/09/25 14:11 37.1 C 86 18 163/82 H 97 Constitutional abnormal general appearance (disheveled), no apparent distress and average body habitus HENMT oral mucous membranes abnormal (dry) Neck/C-Spine supple and no meningeal signs Lymph no lymphadenopathy noted Chest palpation of chest normal Respiratory normal respiratory effort and clear to auscultation bilaterally Cardiovascular normal heart rate noted and regular rhythm noted Gastrointestinal abdomen soft to palpation, tender to palpation (moderate), (LLQ) and (suprapubic), nondistended, abnormal bowel sounds noted (hypoactive bowel sounds) and no masses soft stool/diarrheal on buttocks and perineal area. Does not appear bloody nor melanotic. Genitourinary no CVA tenderness Back/Pelvis no thoracic spine tenderness and no lumbar spine tenderness Psychiatry mental status abnormal other (sluggish responses but responds complete sentences. ), orientation abnormal (disoriented to time), thought process normal, cooperative, affect abnormality noted (flat) and memory abnormal (short term memory loss) Skin skin color normal He does have old and dried stool around his gluteal area. No obvious rash of hand. Results Vitals Vitals: Vital Signs - 24 hr 04/09/25 14:11 Temperature 37.1 C Temperature Source Temporal Artery Scan Pulse Rate 86 Respiratory Rate 18 Blood Pressure 163/82 H O2 Saturation 97 O2 Source Room air Pain Intensity 3 Oxygen O2 Source Room air Labs Labs: Laboratory Tests 04/09/25 04/09/25 14:32 15:48 WBC 12.3 H RBC 3.73 L Hgb 12.7 L Hct 36.8 L MCV 98.7 H MCH 34.0 H MCHC 34.5 RDW 12.3 Plt Count 267 MPV 8.2 Neut # (Auto) 10.4 H Lymph # (Auto) 0.[address] [place] # (Auto) 1.1 H Eos # (Auto) 0.0 Baso # (Auto) 0.0 Absolute Nucleated RBC 0.00 Nucleated RBC % 0.0 Sodium 135 Potassium 3.8 Chloride 102 Carbon Dioxide 27 Anion Gap 6.0 BUN 11 Creatinine 0.6 Estimated GFR (MDRD) 129 Glucose 125 H Calcium 8.6 Phosphorus 3.0 Magnesium 2.3 Total Bilirubin 1.0 AST 17 ALT 13 Alkaline Phosphatase 105 Total Creatine Kinase 43 Total Protein 6.1 L Albumin 3.5 Globulin 2.6 Albumin/Globulin Ratio 1.3 Lipase < 10 L Vitamin B12 185 TSH 0.54 Urine Color YELLOW Urine Clarity CLEAR Urine pH 7.5 Ur Specific [place] 1.010 Urine Protein NEGATIVE Urine Glucose (UA) NEGATIVE Urine Ketones 15 H Urine Occult Blood NEGATIVE Urine Nitrite NEGATIVE Urine Bilirubin NEGATIVE Urine Urobilinogen 0.2 (NORMAL) Ur Leukocyte Esterase NEGATIVE Urine RBC 0-5 Urine WBC 0-3 Ur Squamous Epith Cells RARE Squamous Urine Bacteria None Seen Urine Mucus Few Strands Urine Culture Comments NOT INDICATED Rads (name of study) abd/pelvic CT: Relevant Findings:: Final report received and EMP independent interpretation of test Interpretation: EXAM: [id number] CT/ABPEW ([id number]) PROCEDURE: CT Abdomen/Pelvis W INDICATIONS: lower abd pain CONTRAST: Omni 300 100mL TECHNIQUE: After the administration of intravenous contrast, a CT scan of the abdomen and pelvis was performed. Images were recorded and evaluated at appropriate window settings. Reformats: coronal and sagittal. For radiation dose reduction, the following was used: automated exposure control, adjustment of mA and/or kV according to patient size. COMPARISON: None. FINDINGS: Image quality: Diagnostic. Lower chest: Subsegmental atelectasis in the lateral basilar segment of the left lower lobe. Extensive triple-vessel coronary artery atherosclerotic calcifications. Dual lead pacemaker device with tip in the right atrium and right ventricle. Coronary artery stents. Liver: Hepatic steatosis. No focal mass. Gallbladder: Gallstones measure up to 5 mm. No gallbladder wall thickening. The gallbladder is partially filled. No pericholecystic edema. Biliary tree: No intrahepatic or extrahepatic dilation, accounting for age. Spleen: No splenomegaly. Pancreas: Fatty infiltration of the pancreatic parenchyma. No ductal dilatation. Adrenals: No adrenal nodule. Kidneys and ureters: No hydronephrosis. No renal cystic lesion which requires follow up. No solid mass. Stomach, bowel and peritoneum: Mural thickening of the descending colon from the inferior splenic flexure through the mid descending colon with mild mucosal hyperenhancement. Mild adjacent edema within the pericolonic fat. Otherwise the large bowel is normal in caliber with normal wall thickness. Normal appendix. Normal appearance of the small bowel. No pathologic free fluid. Lymph nodes: No central or retroperitoneal adenopathy. Vessels: No infrarenal aortic aneurysm. Patent portal vein. PELVIS Reproductive organs: Unremarkable. Bladder: No abnormal wall thickening. Pelvic lymph nodes: No pelvic adenopathy by size criteria. Bones: No aggressive osseous abnormality. Other: No significant ventral or inguinal hernia. IMPRESSION: 1. Findings of colitis involving the descending colon. This may be infectious or inflammatory. Recommend correlation with colonoscopy if not recently performed when symptoms have resolved. 2. Cholelithiasis without acute cholecystitis. 3. Moderate to severe calcifications, recommend correlation with risk factors, symptoms, and consider cardiology referral versus lifestyle modifications.. Reviewed by: Marshall Payan MD on 04/09/2025 2:47 PM AKST chest xray: Relevant Findings:: Final report received and EMP independent interpretation of test Interpretation: PT NAME: AMANDO FITZPATRICK MR#: [id number] REG ER/ED AGE: 80 CI DT/TM: 04/09/2511/26/1419 PCP: ABBEY Shrestha : 1945 ATT: SEX: M ORD: Jeff Ames MD EXAM: [id number] XR/CXR1VW ([id number]) PROCEDURE: XR Chest 1V INDICATIONS: weakness few weeks TECHNIQUE: One view of the chest was acquired. COMPARISON: CT abdomen pelvis on 04/09/2025 FINDINGS: Surgical changes and devices: Dual-lead pacemaker device overlies the mediastinum. Lungs and pleura: Again seen subsegmental atelectasis in the left lung base. Mediastinum: Mediastinal contours appear normal. Heart size is normal. Bones and chest wall: No suspicious bony lesions. Overlying soft tissues appear unremarkable. IMPRESSION: Subsegmental atelectasis in the left lung base, better seen on same-day CT. No acute consolidation. Reviewed by: Marshall Payan MD on 04/09/2025 2:37 PM AKST PD Medical Decision Making ED course Complexity details: considered differential (The patient states general weakness in particular last 2 to 3 weeks leading to inability to clean the house and get to the bathroom consistently. He states less appetite and not eating as much recently. Denies fever chills cough vomiting or diarrhea. Intermittent abdominal cramping;/constipation) and d/w patient Social Determinants of Health: Reportedly the patient's home was quite disheveled and he was unkempt with concern of self-care so EMS medic is going to report to APS. Will have social work talk with the patient and daughter as well. His daughter reportedly has power of workers compensation attorney for healthcare. ED course: The patient was having abdominal pains. He is moderately tender in the lower abdomen. He denies cough or recent cold or flu symptoms. He is expressed ge neral weakness with inability to really get up readily and so is soiling himself the last week or so. Denies vomiting but has nausea and low appetite. His white count is elevated at 15,000. He does not have a fever and his vitals are good so does not appear septic per se. CT scan is showing descending colitis likely accounting for his symptoms acutely. Discharge Plan Discharge Patient Disposition: ED Place in Observation Condition: Stable Clinical Impression: General weakness, Alteration in self-care ability Prescriptions: No Action simvastatin 40 MG tablet 40 mg ORAL DAILY lisinopril 30 mg tablet 30 mg PO QDAY alfuzosin 10 mg tablet extended release 24 hr 10 mg PO QDAY Rx Instructions: administer after the same meal each day alendronate 70 mg tablet 70 mg PO QWEEK Rx Instructions: Take one tablet by mouth once a week. Take with a full glass of water, Need to stay upright and avoid food for at least 30 minutes after taking this medication. hydrochlorothiazide 12.5 mg tablet 12.5 mg PO QAM multivitamin with iron PO Rx Instructions: Take as directed ascorbate calcium (vitamin C) PO Rx Instructions: Take as directed cholecalciferol (vitamin D3) PO Rx Instructions: Take as directed coenzyme Q10 [Co Q-10] PO Rx Instructions: Take as directed fish oil-dha-epa PO Rx Instructions: Take as directed bacitracin zinc 500 unit/gram ointment in packet 6 applic topical ONCE Qty: 6 0RF Print Language: Norwegian Stand Alone Forms: PCP List
[2025-04-09 14:37] LABS: HCT - HEMATOCRIT 36.8 % (42.0-52.0); HGB - HEMOGLOBIN 12.7 g/dL (14.0-18.0); MEAN PLATELET VOLUME 8.2 fL (7.4-11.4); NRBC ABSOLUTE COUNT (AUTO) 0.00 x10^3/uL; NUCLEATED RED BLOOD CELLS AUTO 0.0 /100WBC; PLT - PLATELET COUNT 267 10^3/uL (130-450); RED CELL DISTRIBUTION WIDTH 12.3 % (12.0-15.0)
[2025-04-09] MEDS: SODIUM CHLORIDE 0.9% 1,000 ML IV STA (14:47)
[2025-04-09] MEDS: MUPIROCIN 2% OINT 1 GM TOP STA (14:52)
[2025-04-09 14:54] LABS: ALT ALANINE AMINOTRANSFERASE 13 IU/L (10-60); AST ASPARTATE AMINOTRANSFERASE 17 IU/L (10-42); BUN - BLOOD UREA NITROGEN 11 mg/dL (6-20); CARBON DIOXIDE - CO2 27 mmol/L (21-32); CREATININE 0.6 mg/dL (0.6-1.3); GFR - MDRD 129 (>89); PHOSPHORUS 3.0 mg/dL (2.5-5.0)
--- NOTE | 2025-04-09 15:41 | XRAY Report ---
PROCEDURE: XR Chest 1V INDICATIONS: weakness few weeks TECHNIQUE: One view of the chest was acquired. COMPARISON: CT abdomen pelvis on 04/09/2025 FINDINGS: Surgical changes and devices: Dual-lead pacemaker device overlies the mediastinum. Lungs and pleura: Again seen subsegmental atelectasis in the left lung base. Mediastinum: Mediastinal contours appear normal. Heart size is normal. Bones and chest wall: No suspicious bony lesions. Overlying soft tissues appear unremarkable. IMPRESSION: Subsegmental atelectasis in the left lung base, better seen on same-day CT. No acute consolidation. Reviewed by: Marshall Payan MD on 04/09/2025 2:37 PM [place] Approved by: Marshall Payan MD on 04/09/2025 2:37 PM [facility] Station ID: [id number]
--- NOTE | 2025-04-09 15:50 | CT Report ---
PROCEDURE: CT Abdomen/Pelvis W INDICATIONS: lower abd pain CONTRAST: Omni 300 100mL TECHNIQUE: After the administration of intravenous contrast, a CT scan of the abdomen and pelvis was performed. Images were recorded and evaluated at appropriate window settings. Reformats: coronal and sagittal. For radiation dose reduction, the following was used: automated exposure control, adjustment of mA and/or kV according to patient size. COMPARISON: None. FINDINGS: Image quality: Diagnostic. Lower chest: Subsegmental atelectasis in the lateral basilar segment of the left lower lobe. Extensive triple-vessel coronary artery atherosclerotic calcifications. Dual lead pacemaker device with tip in the right atrium and right ventricle. Coronary artery stents. Liver: Hepatic steatosis. No focal mass. Gallbladder: Gallstones measure up to 5 mm. No gallbladder wall thickening. The gallbladder is partially filled. No pericholecystic edema. Biliary tree: No intrahepatic or extrahepatic dilation, accounting for age. Spleen: No splenomegaly. Pancreas: Fatty infiltration of the pancreatic parenchyma. No ductal dilatation. Adrenals: No adrenal nodule. Kidneys and ureters: No hydronephrosis. No renal cystic lesion which requires follow up. No solid mass. Stomach, bowel and peritoneum: Mural thickening of the descending colon from the inferior splenic flexure through the mid descending colon with mild mucosal hyperenhancement. Mild adjacent edema within the pericolonic fat. Otherwise the large bowel is normal in caliber with normal wall thickness. Normal appendix. Normal appearance of the small bowel. No pathologic free fluid. Lymph nodes: No central or retroperitoneal adenopathy. Vessels: No infrarenal aortic aneurysm. Patent portal vein. PELVIS Reproductive organs: Unremarkable. Bladder: No abnormal wall thickening. Pelvic lymph nodes: No pelvic adenopathy by size criteria. Bones: No aggressive osseous abnormality. Other: No significant ventral or inguinal hernia. IMPRESSION: 1. Findings of colitis involving the descending colon. This may be infectious or inflammatory. Recommend correlation with colonoscopy if not recently performed when symptoms have resolved. 2. Cholelithiasis without acute cholecystitis. 3. Moderate to severe calcifications, recommend correlation with risk factors, symptoms, and consider cardiology referral versus lifestyle modifications.. Reviewed by: Marshall Payan MD on 04/09/2025 2:47 PM [place] Approved by: Marshall Payan MD on 04/09/2025 2:47 PM [facility] Station ID: [id number]
[2025-04-09 15:56] LABS: GLUCOSE, URINE (UA) NEGATIVE (NEGATIVE); KETONES,URINE (UA) 15 mg/dL (NEGATIVE); OCCULT BLOOD,URINE NEGATIVE (NEGATIVE)
[2025-04-09 16:06] LABS: SQUAMOUS EPITHELIAL CELL,UR RARE Squamous (<= Few)
--- OUTSIDE RECORDS SUMMARY | 2025-04-09 16:44 | EXTERNAL MEDICAL SUMMARY RPT | Encounter Summary ---
Author Organization [facility] Address [address] [address] Care Team Providers Care Import/Export Analyst Name Role Phone Background, Provider Not In System Primary Care Provider Christine Olson Primary Care Provider [phone] Encounter Details Date Type Department Care Team (Late st Contact Info) Description 10/14/2017 Scanned Document SCANNED ONLY Scanned, Document Social History Tobacco Use Types Packs/Day Years Used Date Smoking Tobacco: Former Smokeless Tobacco: Never Alcohol Use Standard Drinks/Week Comments Yes 0 (1 standard drink = 0.6 oz pur e alcohol) 5 days a week Sex and Gender Information Value Date Recorded Sex Assigned at Not on file Legal Sex Male 8:17 AM PST Gender Identity Not on file Sexual Orientation Not on file documented as of this encounter Plan of Treatment Not on file documented as of this encounter Visit Diagnoses Not on filedocumented in this encounter Care Teams Import/Export Analyst Relationship Specialty Start Date End Date Background, Provider Not In System [address] [facility] [address] [place] [address] PCP - General 05/25/17 11/12/17 Christine Olson ARNP [address] [place] [address] PCP - General Physician Employee'S Representative 08/19/22 documented as of this encounter
--- OUTSIDE RECORDS SUMMARY | 2025-04-09 16:44 | EXTERNAL MEDICAL SUMMARY RPT | Encounter Summary ---
Author Organization [facility] Address [address] [address] Care Team Providers Care English Tutor Name Role Phone Christine Olson Primary Care Provider [phone] Encounter Details Date Type Department Care Team (Late st Contact Info) Description 12/08/2017 Abstract CARDIOLOGY - [place], [place] - [facility] [address] [address] [place] [id number] Lindsay Johnson CMA [address] [place], [place] [id number] Social History Tobacco Use Types Packs/Day Years [...] on filedocumented in this encounter Care Teams English Tutor Relationship Specialty Start Date End Date Christine Olson ARNP [address] [place] [address] PCP - General Physician [employer] Corps Officer 08/19/22 documented as of this encounter
--- OUTSIDE RECORDS SUMMARY | 2025-04-09 16:44 | EXTERNAL MEDICAL SUMMARY RPT | Encounter Summary ---
Author Organization [facility] Address [address] [address] Care Team Providers Care Archival Records Clerk Name Role Phone Christine Olson Primary Care Provider [phone] Encounter Details Date Type Department Care Team (Late st Contact Info) Description 12/09/2017 Scanned Document SCANNED ONLY Scanned, Document Social [...] on filedocumented in this encounter Care Teams Archival Records Clerk Relationship Specialty Start Date End Date Christine Olson ARNP [address] [place], [place] [id number] PCP - General Physician Supervisor Electron Tube Processing 08/19/22 documented as of this encounter
--- OUTSIDE RECORDS SUMMARY | 2025-04-09 16:45 | EXTERNAL MEDICAL SUMMARY RPT | Encounter Summary ---
Author Organization [facility] Address [address] [address] Care Team Providers Care Brake Mechanic Name Role Phone Christine Olson Primary Care Provider [phone] Encounter Details Date Type Department Care Team (Late st Contact Info) Description 08/16/2024 Abstract CARDIOLOGY - [place], [place] [address] [place] [address] Mary Kate Pugh, TRACING LATHE SET UP OPERATOR [address] [place], [place] [id number] Social History Tobacco Use Types Packs/Day Years Used Date Smoking Tobacco: Some Days Cigarettes Smokeless Tobacco: Never Alcohol Use Standard Drinks/Week Comments Yes 0 (1 standard drink = 0.6 oz pur e alcohol) 7 days a week 2 [facility] Sex and Gender Information Value Date Recorded Sex Assigned at Not on file Legal Sex Male 8:17 AM PST Gender Identity Not on file Sexual Orientation Not on file documented as of this encounter Plan of Treatment Not on file documented as of this encounter Visit Diagnoses Not on filedocumented in this encounter Care Teams Brake Mechanic Relationship Specialty Start Date End Date Christine Olson ARNP [address] [place], [place] [id number] PCP - General Physician Reexaminer 08/19/22 documented as of this encounter
--- OUTSIDE RECORDS SUMMARY | 2025-04-09 16:45 | EXTERNAL MEDICAL SUMMARY RPT | Encounter Summary ---
Author Organization [facility] Address [address] [place] [address] Care Team Providers Care Hospital Admissions Officer Name Role Phone Pcp, None Selected Primary Care Provider Unavail able Encounter Details Date Type Department Care Team (Late st Contact Info) Description 05/08/2022 Abstract [facility] [place] [address] [place] [address] Gail Carson MD [address] [place] [address] Social History Tobacco Use Types Packs/Day Years Used Date Smoking Tobacco: Some Days Smokeless Tobacco: Never Alcohol Use Standard Drinks/Week Comments Yes 14 (1 standard drink = 0.6 oz pu re alcohol) 2-3 MARTINIS PER DAY PHQ-2 Answer Date Recorded PHQ-2 Score 0 03/11/2022 Sex and Gender Information Value Date Recorded Sex Assigned at Male 02/27/2022 2:43 PM PDT Legal Sex Male 7:31 PM PDT Gender Identity Male 02/27/2022 2:43 PM PDT Sexual Orientation Straight 02/27/2022 2: 43 PM PDT documented as of this encounter Functional Status * Over the last week, were you able to... Question Answer Date of Assessment Author Dress yourself, including ty ing shoelaces and doing buttons? 0 05/09/2022 7:59 AM PST Pooja Joe MA Get in and out of bed? 0 05/09/2022 7:59 AM Pooja Harley MA Lift a full cup or glass to your mouth? 0 05/09/2022 7:59 AM Pooja Harley MA Walk outdoors on flat ground? 0 05/09/2022 7:59 AM Pooja Harley MA Wash and dry your entire body? 0 05/09/2022 7:59 AM Pooja Harley MA Bend down to lemon picker clothin g from the floor? 0 05/09/2022 7:59 AM Pooja Harley MA Turn regular faucets on and off? 0 05/09/19 7:59 AM Pooja Harley MA Get in and out of a car, bus , train, or airplane? 0 05/09/2022 7:59 AM Pooja Harley MA Walk two miles or three kilometers, if you wish? 0 05/09/2022 7:59 AM Nona Harley MA Participate in recreational activities and sports as you would like, if you wish? 0 05/09/2022 7:59 AM Nona Harley MA * Rapid3 Questions 2 & 3 Question Answer Date of Assessment Author Pain because of your conditi on over the past week 0 05/09/2022 7:59 AM Pooja Harley MA Considering how ways illness and health conditions affect you, how are you doing? 0 05/09/2022 7:59 AM Pooja Harley MA * Rapid3 Scores Question Answer Date of Assessment Author Rapid3 FN Total 0 05/09/2022 7:59 AM Pooja Wesley MA Rapid3 Cumulative Score 0 05/09/2022 7:59 A M Pooja Harley MA documented as of this encounter Plan of Treatment Not on file documented as of this encounter Visit Diagnoses Not on filedocumented in this encounter Care Teams Hospital Admissions Officer Relationship Specialty Start Date End Date Pcp, None Selected PCP - General 08/18/24 documented as of this encounter
--- OUTSIDE RECORDS SUMMARY | 2025-04-09 16:45 | EXTERNAL MEDICAL SUMMARY RPT | Encounter Summary ---
Author Organization [facility] Address [address] [address] Care Team Providers Care Newborn Photographer Name Role Phone Christine Olson Primary Care Provider [phone] [phone] Encounter Details Date Type Department Care Team (Late st Contact Info) Description 02/03/2018 Scanned Document SCANNED ONLY Scanned, Document Social [...] on filedocumented in this encounter Care Teams Newborn Photographer Relationship Specialty Start Date End Date Christine Olson ARNP [address] [place], [place] [phone] PCP - General Physician Semiautomatic Stitcher Operator 08/19/22 documented as of this encounter
--- OUTSIDE RECORDS SUMMARY | 2025-04-09 16:45 | EXTERNAL MEDICAL SUMMARY RPT | Encounter Summary ---
Author Organization [facility] Address [address] [address] Care Team Providers Care Manager Printing Name Role Phone Christine Olson Primary Care Provider +1 [phone] Encounter Details Date Type Department Care Team (Late st Contact Info) Description 06/12/2022 Scanned Document SCANNED ONLY Scanned, Document Social [...] on filedocumented in this encounter Care Teams Manager Printing Relationship Specialty Start Date End Date Christine Olson ARNP [address] [place], [place] [phone] PCP - General Physician Electronic Prepress System Operator 08/19/22 documented as of this encounter
--- OUTSIDE RECORDS SUMMARY | 2025-04-09 16:45 | EXTERNAL MEDICAL SUMMARY RPT | Encounter Summary ---
Author Organization [facility] Address [address] [place] [address] Care Team Providers Care Ciso Name Role Phone Pcp, None Selected Primary Care Provider Unavail able Encounter Details Date Type Department Care Team (Late st Contact Info) Description 10/16/2023 Abstract [facility] Neurology [place] [address] [facility] [address] [place] [address] Ansley Frey MD [address] [place] [address] Social History Tobacco Use Types Packs/Day Years Used Date Smoking Tobacco: Some Days Cigarettes Smokeless Tobacco: Never Tobacco Cessation:Ready to Q uit: Not Asked; Counseling Given: Not Answered Alcohol Use Standard Drinks/Week Comments Yes 14 [...] PM PDT documented as of this encounter Plan of Treatment Not on file documented as of this encounter Visit Diagnoses Not on filedocumented in this encounter Care Teams Ciso Relationship Specialty Start Date End Date Pcp, None Selected PCP - General 08/18/24 documented as of this encounter
--- OUTSIDE RECORDS SUMMARY | 2025-04-09 16:45 | EXTERNAL MEDICAL SUMMARY RPT | Encounter Summary ---
Author Organization [facility] Address [address] [address] Care Team Providers Care Tire Fabricator Name Role Phone Background, Provider Not In System Primary Care Provider Christine Olson Primary Care Provider [phone] [phone] Encounter Details Date Type Department Care Team (Late st Contact Info) Description 01/15/2014 Scanned Document SCANNED ONLY Scanned, Document Social History Tobacco Use Types Packs/Day Years Used Date Smoking Tobacco: Never Assessed Sex and Gender Information Value Date Recorded Sex Assigned at Not on file Legal Sex Male 8:17 AM PST Gender Identity Not on file Sexual Orientation Not on file documented as of this encounter Plan of Treatment Not on file documented as of this encounter Visit Diagnoses Not on filedocumented in this encounter Care Teams Tire Fabricator Relationship Specialty Start Date End Date Background, Provider Not In System [address] [facility] [address] [place] [address] PCP - General 05/25/17 11/12/[address] [facility] [address] [place] [address] PCP - General Physician Nremt 08/19/22 documented as of this encounter
--- OUTSIDE RECORDS SUMMARY | 2025-04-09 16:45 | EXTERNAL MEDICAL SUMMARY RPT | Encounter Summary ---
Author Organization [facility] Address [address] [place] [address] Care Team Providers Care Senior Firmware Engineer Name Role Phone Pcp, None Selected Primary Care Provider Unavail able Encounter Details Date Type Department Care Team (Late st Contact Info) Description 09/25/2022 Abstract [facility] Rheumatology [place] [address] [place] [address] Gail Carson MD [address] [place] [address] Social History Tobacco Use Types [...] ty ing shoelaces and doing buttons? 0 09/26/2022 11:50 AM PDT Pooja Yanez MA Get in and out of bed? 0 09/26/2022 11:50 A M Pooja Ospina MA Lift a full cup or glass to your mouth? 0 09/26/2022 11:50 AM Pooja Ospina MA Walk outdoors on flat ground? 0 09/26/2022 11:50 AM Pooja Ospina MA Wash and dry your entire body? 0 09/26/2022 11:50 AM Pooja Ospina MA Bend down to warp picker clothin g from the floor? 0 09/26/2022 11:50 AM Pooja Ospina MA Turn regular faucets on and off? 0 09/27/19 11:50 AM Pooja Ospina MA Get in and out of a car, bus , train, or airplane? 0 09/26/2022 11:50 AM Pooja Ospina MA Walk two miles or three kilometers, if you wish? 0 09/26/2022 11:50 AM Lisandra Ospina MA Participate in recreational activities and sports as you would like, if you wish? 0 09/26/2022 11:50 AM Lisandra Ospina MA * Rapid3 Questions 2 & 3 Question Answer Date of Assessment Author Pain because of your conditi on over the past week 1.0 09/26/2022 11:50 AM Pooja Ospina MA Considering how ways illness and health conditions affect you, how are you doing? 1.5 09/26/2022 11:50 AM Pooja Ospina MA * Rapid3 Scores Question Answer Date of Assessment Author Rapid3 FN Total 0 09/26/2022 11:50 AM Pooja Rodriguez MA Rapid3 Cumulative Score 2.5 09/26/2022 11:50 AM Pooja Ospina MA documented as of this encounter Plan of Treatment Not on file documented as of this encounter Visit Diagnoses Not on filedocumented in this encounter Care Teams Senior Firmware Engineer Relationship Specialty Start Date End Date Pcp, None Selected PCP - General 08/18/24 documented as of this encounter
--- OUTSIDE RECORDS SUMMARY | 2025-04-09 16:45 | EXTERNAL MEDICAL SUMMARY RPT | Encounter Summary ---
Author Organization [facility] Address [address] [place] [address] Care Team Providers Care Oracle Ascp Consultant Name Role Phone Pcp, None Selected Primary Care Provider Unavail able Encounter Details Date Type Department Care Team (Late st Contact Info) Description 08/17/2023 Abstract [facility] Ear Nose and Throat [place] [address] [place] [address] [place] [phone] Dionisio Trujillo MD [address] [place] [address] Social History Tobacco Use Types Packs/Day Years [...] on filedocumented in this encounter Care Teams Oracle Ascp Consultant Relationship Specialty Start Date End Date Pcp, None Selected PCP - General 08/18/24 documented as of this encounter
--- OUTSIDE RECORDS SUMMARY | 2025-04-09 16:45 | EXTERNAL MEDICAL SUMMARY RPT | Clinical Summary ---
Author Organization [facility] Address [address] [place] [address] [place] [address] Care Team Providers Care Finish Remover Name Role Phone Unavailable Primary Care Provider Unavailabl e Source Comments NOTE: The information displayed by Care Everywhere is extracted from the complete medical record and may not identify all current or past patient conditions.[facility] Allergies No known active allergies Immunizations Immunization Administration Dates Next Due *STANDARD DOSE SYRINGE* (Flu LAVAL,FluZONE,FluARIX or AFLURIA) (6+ mos) QUAD 2018 FluVIRIN (4+ years) Tri *VIAL* 04/02/2006 Influenza (.50 not PF) 04/02/2006 Td (Tetanus, Diphtheria) 05/30/1992 Td PF (Tetanus, Diphtheria) 09/05/2004 Social History Tobacco Use Types Packs/Day Years Used Date Smoking Tobacco: Never Assessed Sex and Gender Information Value Date Recorded Sex Assigned at Not on file Legal Sex Male 5:24 PM PST Gender Identity Not on file Sexual Orientation Not on file Plan of Treatment Health Maintenance Due Date Last Done Comments Vaccine: Pneumococcal (1 of 1 - PCV) 1993 Vaccine: Shingles (1 of 2) 1993 Vaccine: JEzT-Sadi-Ab (1 - Tdap) 09/06/2004 09/06/19, 05/30/1992 Vaccine: RSV (1 - 1-dose 75+ series) 2018 FLU VACCINE (#1) 01/02/2025 2018, , 04/02/2006
--- OUTSIDE RECORDS SUMMARY | 2025-04-09 16:45 | EXTERNAL MEDICAL SUMMARY RPT | Encounter Summary ---
Author Organization [facility] Address [address] [address] Care Team Providers Care Stable Cleaner Name Role Phone Christine Olson Primary Care Provider [phone] [phone] Encounter Details Date Type Department Care Team (Late st Contact Info) Description 12/20/2018 Scanned Document SCANNED ONLY Scanned, Document Social [...] on filedocumented in this encounter Care Teams Stable Cleaner Relationship Specialty Start Date End Date Christine Olson ARNP [address] [place], [place] [phone] PCP - General Physician Public Health Aide 08/19/22 documented as of this encounter
--- OUTSIDE RECORDS SUMMARY | 2025-04-09 16:45 | EXTERNAL MEDICAL SUMMARY RPT | Encounter Summary ---
Author Organization [facility] Address [address] [address] Care Team Providers Care Ventilation Equipment Tender Name Role Phone Christine Olson Primary Care Provider [phone] [phone] Encounter Details Date Type Department Care Team (Late st Contact Info) Description 12/01/2019 Scanned Document SCANNED ONLY Scanned, Document Social [...] on filedocumented in this encounter Care Teams Ventilation Equipment Tender Relationship Specialty Start Date End Date Christine Olson ARNP [address] [place], [place] [phone] PCP - General Physician Fuel Manager 08/19/22 documented as of this encounter
--- OUTSIDE RECORDS SUMMARY | 2025-04-09 16:45 | EXTERNAL MEDICAL SUMMARY RPT | Encounter Summary ---
Author Organization [facility] Address [address] [address] Care Team Providers Care Irrigation Supervisor Name Role Phone Background, Provider Not In System Primary Care Provider Christine Olson Primary Care Provider [phone] [phone] Encounter Details Date Type Department Care Team (Late st Contact Info) Description 08/26/2016 Scanned Document SCANNED ONLY Scanned, Document Social [...] on filedocumented in this encounter Care Teams Irrigation Supervisor Relationship Specialty Start Date End Date Background, Provider Not In System [address] [facility] [address] [place] [address] PCP - General 05/25/17 11/12/17 Christine Olson ARNP [facility] [address] [place] [address] [place] [address] PCP - General Physician Sewer Maintenance Supervisor 08/19/22 documented as of this encounter
--- OUTSIDE RECORDS SUMMARY | 2025-04-09 16:45 | EXTERNAL MEDICAL SUMMARY RPT | Encounter Summary ---
Author Organization [facility] Address [address] [address] Care Team Providers Care Shell Trim Tool Setter Name Role Phone Background, Provider Not In System Primary Care Provider Christine Olson Primary Care Provider [phone] [phone] Encounter Details Date Type Department Care Team (Late st Contact Info) Description 05/15/2017 Scanned Document SCANNED ONLY Scanned, Document Social [...] on filedocumented in this encounter Care Teams Shell Trim Tool Setter Relationship Specialty Start Date End Date Background, Provider Not In System [address] [facility] [address] [place] [address] PCP - General 05/25/17 11/12/17 Christine Olson ARNP [facility] [address] [place] [address] PCP - General Physician Siding Stapler 08/19/22 documented as of this encounter
--- OUTSIDE RECORDS SUMMARY | 2025-04-09 16:45 | EXTERNAL MEDICAL SUMMARY RPT | Encounter Summary ---
Author Organization [facility] Address [address] [address] Care Team Providers Care Lab Associate Name Role Phone Christine Olson Primary Care Provider [phone] [phone] Encounter Details Date Type Department Care Team (Late st Contact Info) Description 05/18/2022 Scanned Document SCANNED ONLY Scanned, Document Social [...] on filedocumented in this encounter Care Teams Lab Associate Relationship Specialty Start Date End Date Christine Olson ARNP [address] [place], [place] [phone] PCP - General Physician Manager Cleaning 08/19/22 documented as of this encounter
--- OUTSIDE RECORDS SUMMARY | 2025-04-09 16:45 | EXTERNAL MEDICAL SUMMARY RPT | Encounter Summary ---
Author Organization [facility] Address [address] [place] [address] Care Team Providers Care Excelsior Machine Tender Name Role Phone Pcp, None Selected Primary Care Provider Unavail able Encounter Details Date Type Department Care Team (Late st Contact Info) Description 11/29/[address] [facility] Rheumatology [place] [address] [place] [address] Gail Carson MD [address] [place] [address] Social History Tobacco Use Types [...] on filedocumented in this encounter Care Teams Excelsior Machine Tender Relationship Specialty Start Date End Date Pcp, None Selected PCP - General 08/18/24 documented as of this encounter
--- OUTSIDE RECORDS SUMMARY | 2025-04-09 16:45 | EXTERNAL MEDICAL SUMMARY RPT | Clinical Summary ---
Author Organization [facility] Address [address] [place] [address] Care Team Providers Care Golf Starter And Ranger Name Role Phone Christine Olson Primary Care Provider Allergies No known active allergies Medications COENZYME Q10 ORIndications:Othe r and unspecified hyperlipidemia Take 1 capsule by mouth daily. 0 0 01/09/20 06 Active ALENDRONATE SODIUM 70 MG/75ML OR SOLNIndications:Ce rvicalgia,Osteopor osis, unspecified Take 1 tab PO every week with full glass of water. Need to stay upright and avoid food for at least 30 minutes after taking this medication. 7762 3 months 3 12/05/19 07 Active alfuzosin ER 10 MG 24 hr tablet Take 1 tablet (10 mg) by mouth daily. Active clobetasol 0.05 % topical solution Apply 1 application topically daily as needed. Apply to itchy areas on scalp. Active [place]-3 Fatty Acids (OMEGA 3 OR) Take 1 capsule by mouth daily. Active multivitamin with minerals tablet Take 1 tablet by mouth daily. Active Saw [place] (Serenoa repens) (SAW [place] OR) Take 1 capsule by mouth daily. Active tadalafil 20 MG tablet Take 0.5 tablets (10 mg) by mouth daily as needed for erectile dysfunction. Active acetaminophen 500 MG tablet Take 2 tablets (1,000 mg) by mouth every 8 hours. 04/10/20 23 Active amLODIPine 10 MG tablet Take 1 tablet (10 mg) by mouth daily. 30 tablet 04/11/20 Active atorvastatin 20 MG tablet Take 1 tablet (20 mg) by mouth daily. 30 tablet 04/11/20 Active lidocaine 4 % patch Apply 2 patches onto the skin every 24 hours. Apply to painful area for up to 12 hours in a 24 hour period. 04/11/20 Active methocarbamol 750 MG tablet Take 1 tablet (750 mg) by mouth every 8 hours. 30 tablet 04/10/20 Active polyethylene glycol 3350 17 g packet Take 1 packet (17 g) by mouth daily. Dissolve in 4-8 ounce water. 04/11/20 Active senna 8.6 MG tablet Take 2 tablets (17.2 mg) by mouth 2 times a day. 04/10/20 Active neomycin-bacitraci n-polymyxin (Triple Antibiotic) 3.5-400-5000 ointment Apply topically daily. Apply to skin tears at left arm, hand, and left knee. 04/10/20 Active HYDROmorphone 4 MG tabletIndications: Closed displaced fracture of first cervical vertebra with routine healing, unspecified fracture morphology, subsequent encounter Take 0.5 tablets (2 mg) by mouth every 3 hours as needed for severe pain. 15 tablet 04/13/20 Active Active Problems Problem Noted Date Diagnosed Date Traumatic closed fracture of C1 vertebra with minimal displacement, initial encounter 04/06/2023 Syncope and collapse 09/18/2005 Overview (11/29/2006): (09/06) Dr. 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 Ace -- pacer doing well, no changes Hypersomnia with sleep apnea, unspecified 2004 Overview (09/05/2004): (02/04) Severe FLOYD at [facility] Cervicalgia 12/08/2003 Overview (12/08/2003): PT for bone spurs Other and unspecified hyperlipidemia 12/08/2003 Overview (12/09/2006): (12/08) Goal LDL < 130 CHOLESTEROL (TOTAL) 204 (H) <200 mg/dL 12/04/2006 8:13 AM [facility] TRIGLYCERIDE 84 <150 mg/dL 12/04/2006 8:13 AM [facility] CHOLESTEROL (HDL) 56 >40 mg/dL 12/04/2006 8:13 AM [facility] CHOLESTEROL (LDL) 131 (H) <130 mg/dL 12/04/2006 8:13 AM [facility] Normal LFTs Osteoporosis, unspecified 12/08/2003 Overview (09/05/2004): (02/04) DEXA [facility] -- still osteopenic, but improving Posttraumatic stress disorder 12/08/2003 Immunizations Immunization Administration Dates Next Due Influenza, unspecified 04/02/2006 Td 2 Lf tetanus toxoid 09/05/2004 Family History Medical History Relation Comments Psych Father depression Cancer Other 1 bone Cancer Other 2 skin (not [place] ma) Heart Disease No Hx Of Relation Status Comments Father Other 1 Other 2 Social History Tobacco Use Types Packs/Day Years Used Date Smoking Tobacco: Passive Smo ke Exposure - Never Smoker Comments:1 pack every 2-3 we eks Alcohol Use Standard Drinks/Week Comments Yes 0 (1 standard drink = 0.6 oz pur e alcohol) 2-3 drinks 5 out of 7 days Sex and Gender Information Value Date Recorded Sex Assigned at Not on file Legal Sex Male 5:03 AM PST Gender Identity Not on file Sexual Orientation Not on file 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 Not on file Not on file Not on file Last Filed Vital Signs Vital Sign Reading Time Taken Comments Blood Pressure 159/98 04/10/2023 1:42 PM PST Pulse 99 04/10/2023 1:42 PM PST Temperature 36.5 C (97.7 F) 04/10/2023 1:42 PM PST Respiratory Rate 18 04/10/2023 1:42 PM PST Oxygen Saturation 95% 04/10/2023 1:42 PM PST Inhaled Oxygen Concentration - - Weight 84 kg (185 lb 3 oz) 04/06/2023 8:14 PM PS T Height 175.3 cm (5' 9") 04/06/2023 8:14 PM PST Body Mass Index 27.35 04/06/2023 8:14 PM PST Plan of Treatment Health Maintenance Due Date Last Done Comments Depression Screening (PHQ-2) 1957 Medicare Annual Wellness Visit 1963 Lipid Disorders Screening 12/05/20112006, 08/21/2006, 01/08/2006, Additional history exists RSV Vaccine (1 - 1-dose 75+ series) 2018 DTaP, Tdap and Td Vaccines (6 - Td or Tdap) 12/07/2022 12/07/2012, 03/19/2007, 03/19/2007, Additional history exists COVID-19 Vaccine ( season) 2025 03/06/2023, 02/15/2022, 09/04/2021, Additional history exists Influenza Vaccine (#1) 2025 , 12/30/2021, 02/02/2021, Additional history exists Pneumococcal Vaccine: 50+ Years Completed 08/26/2016, 08/29/2014 Zoster Vaccine Completed 11/15/2019, 11/0 11/2018, 02/27/2009 HPV Vaccine Aged Out No longer eligi ble based on patient's age to complete this topic Hepatitis A Vaccine Aged Out No longe r eligible based on patient's age to complete this topic Hepatitis B Vaccine Aged Out No longe r eligible based on patient's age to complete this topic Meningococcal B Vaccine Aged Out No l onger eligible based on patient's age to complete this topic Medical Devices Implanted Type Area Local Delivery Driver Device Identifier Shelf Expiration Date Model / Serial / Lot Pacemaker Pacemaker Left: Chest Screw Spine Quartex 3.5mm Polyaxial 34mm - [id number] Implanted:Qty : 2 on 04/07/2023 by Yahaira Reyes MD at [facility] N/A: Spine Cervical [employer] 1149.3734 / / Marin Spine Quartex 4mm 70mm Curved - [id number] Implanted:Qty : 1 on 04/07/2023 by Yahaira Reyes MD at [facility] N/A: Spine Cervical [employer] 1149.7570 / / Cap Spine Quartex Locking - [id number] Implanted:Qty : 2 on 04/07/2023 by Yahaira Reyes MD at [facility] N/A: Spine Cervical [employer] 1149.0001 / / Screw Spine Quartex 3.5mm 36mm Polyaxial - [id number] Implanted:Qty : 1 on 04/07/2023 by Yahaira Reyes MD at [facility] N/A: Spine Cervical [employer] [id number] / / Procedures Procedure Name Priority Date/Time Associated Diagnosis Comments PREMANAGE Routine 04/09/2025 4:15 PM PST Procedure Note - 04/09/2025 4:15 PM PSTThis note is in progress. Patient has visited an external emergency department or has beenhospitalized outside of [facility] --MOST RECENT VISIT-- ED Admit:04/09/25 14:02 Location:[facility] Attending Provider:Cesar Encounter Type:Emergency Major Class:Emergency Chief Complaint:ABD PX Diagnosis: ED/[facility] VISIT [facility] (3 MO.) Visit Date Location [facility] TypeDx/Complaint -------- ------- 04/09/2025 14:02 [facility] Villavicencio ABD PX INPATIENT VISIT TRACKING (1 MO.) Visit Date Location [facility] Type Dx/Complaint -------- ------- ---- ED VISIT COUNT (12 MO.) Visits Location ------ --------- 1 [facility] 1 Total Note: Visits indicate total known visits. --- --CARE GUIDELINES-- (Below are the most recent care guidelines entered by a Medicine careprovider in [facility]. If Medicine guidelines do not exist in [facility], the mostrecent care guideline entered by an external hospital care provider isdisplayed.) [facility] has no Care Guidelines for this patient. Security Events No recent Security Events currently on file --CARE PROVIDERS-- CARE PROVIDERS Name Phone TypeService Dates ---- ----- CHRISTINE OLSON Nurse Practitioner: Moni - Current LIPID PANEL Routine 12/04/2006 8:13 AM PDT HYPERLIPIDEMIA NEC/NOS from Last 3 Months or Most Recently Relevant to Health Maintenance Results * (ABNORMAL) LIPID PANEL (12/04/2006 8:13 AM PDT) Total Cholesterol 204(H) <200 mg/dL U [facility] DEPT OF LAB MED Triglyceride 84 <150 mg/dL [facility] DEPT OF LAB MED HDL Cholesterol 56 >40 mg/dL [facility] DEPT OF LAB MED Cholesterol (LDL) 131(H) <130 mg/dL [facility] Cholesterol/HDL Ratio 3.6 [facility] DE[facility] OF LAB MED Patient Fasting Status (Y/No) Yes OUTSIDE LOCATION 12/04/2006 8:13 AM PDT 12/04/2006 5:10 PM PDT Garrett Giron MD LAB BLOOD ORDERABLES Era crockett Result OUTSIDE LOCATION [facility] DEPT OF LAB MED [address] [facility] [id number] [place] [address] from Last 3 Months or Most Recently Relevant to Health Maintenance Insurance MEDICARE [facility] MEDICARE Advance Directives For more information, please contact: [phone] * Full Code (Latest Code Status on File) Date Activated Date Inactivated Comments 04/06/2023 5:31 PM 04/10/2023 11:08 PM Care Teams Golf Starter And Ranger Relationship Specialty Start Date End Date Christine Olson ARNP [facility] [address] [place] [address], [address] [place] [address] PCP - General Nurse Practitioner 04/06/23
--- OUTSIDE RECORDS SUMMARY | 2025-04-09 16:45 | EXTERNAL MEDICAL SUMMARY RPT | Encounter Summary ---
Author Organization [facility] Address [address] [place] [address] Care Team Providers Care Government Service Executive Name Role Phone Pcp, None Selected Primary Care Provider Unavail able Encounter Details Date Type Department Care Team (Late st Contact Info) Description 10/16/2023 Abstract [facility] Ear Nose and Throat [place] [address] [place] [address] [place] [id number] Dionisio Trujillo MD [address] [place] [address] Social History Tobacco Use Types Packs/Day Years [...] on filedocumented in this encounter Care Teams Government Service Executive Relationship Specialty Start Date End Date Pcp, None Selected PCP - General 08/18/24 documented as of this encounter
--- OUTSIDE RECORDS SUMMARY | 2025-04-09 16:45 | EXTERNAL MEDICAL SUMMARY RPT | Encounter Summary ---
Author Organization [facility] Address [address] [place] [address] Care Team Providers Care Inspector Welded Parts Name Role Phone Pcp, None Selected Primary Care Provider Unavail able Encounter Details Date Type Department Care Team (Late st Contact Info) Description 10/16/2023 Abstract [facility] Rheumatology [place] [address] [place] [address] Gail Carson MD [address] [place] [address] Social History Tobacco Use Types [...] on filedocumented in this encounter Care Teams Inspector Welded Parts Relationship Specialty Start Date End Date Pcp, None Selected PCP - General 08/18/24 documented as of this encounter
--- OUTSIDE RECORDS SUMMARY | 2025-04-09 16:45 | EXTERNAL MEDICAL SUMMARY RPT | Encounter Summary ---
Author Organization [facility] Address [address] [address] Care Team Providers Care Law Professor Name Role Phone Christine Olson Primary Care Provider +1 -[phone] Encounter Details Date Type Department Care Team (Late st Contact Info) Description 12/17/2021 Scanned Document SCANNED ONLY Scanned, Document Social [...] on filedocumented in this encounter Care Teams Law Professor Relationship Specialty Start Date End Date Chrsitine Olson ARNP [address] [place], [place] [phone] PCP - General Physician Pre K Special Education Teacher 08/19/22 documented as of this encounter
--- OUTSIDE RECORDS SUMMARY | 2025-04-09 16:45 | EXTERNAL MEDICAL SUMMARY RPT | Encounter Summary ---
Author Organization [facility] Address [address] [address] Care Team Providers Care Corset Maker Name Role Phone Christine Olson Primary Care Provider +1 [phone] Encounter Details Date Type Department Care Team [...] on filedocumented in this encounter Care Teams Corset Maker Relationship Specialty Start Date End Date Christine Olson ARNP [address] [place], [place] [phone] PCP - General Physician Metal Stamping Machine Operator 08/19/22 documented as of this encounter
--- OUTSIDE RECORDS SUMMARY | 2025-04-09 16:45 | EXTERNAL MEDICAL SUMMARY RPT | Clinical Summary ---
Author Organization [facility] Address [address] [place] [address] Care Team Providers Care Hammer Shop Supervisor Name Role Phone Christine Olson Primary Care Provider +1 [phone] Allergies No known active allergies Medications cholecalciferol , vitamin D3, 2,000 unit Tablet Take by mouth daily Active multivitamin (THERAGRAN) per tablet Take 1 tablet by mouth daily 05/20/2007 Active co-enzyme Q-10 30 mg capsule Take 30 mg by mouth daily Active ascorbic acid, vitamin C, 1,000 mg extended release tablet Take 1 tablet by mouth daily 05/20/2007 Active alfuzosin (UROXATRAL) 10 mg 24 hr tablet Take 10 mg by mouth daily Active atorvastatin (LIPITOR) 20 MG tablet Take 1 tablet (20 mg total) by mouth every evening 90 tablet 3 09/30/2017 Active cyanocobalamin/ folic acid (VITAMIN T86-[id number] ACID) 1,000-400 mcg Lozenge daily Active carboxymethylce llulose (REFRESH TEARS) 0.5 % ophthalmic drops Apply to eye every 6 (six) hours Active sildenafil citrate (VIAGRA ORAL) Take by mouth Active lisinopriL (PRINIVIL,ZESTR IL) 20 MG tablet Take 1 tablet (20 mg total) by mouth daily 90 tablet 3 10/17/2021 Active amLODIPine (NORVASC) 5 MG tablet Take 1 tablet (5 mg total) by mouth daily 90 tablet 3 12/04/2021 Active tadalafiL (CIALIS) 20 mg tablet Take 10 mg by mouth daily as needed Active acetaminophen (TYLENOL) 500 MG tablet Take 1,000 mg by mouth in the morning and at bedtime 04/10/2023 Active metoprolol succinate (TOPROL-XL) 50 MG 24 hr tablet Take 1 tablet (50 mg total) by mouth daily 90 tablet 3 06/09/2023 Active magnesium oxide (MAG-OX) 400 mg (241.3 mg magnesium) tablet Take 1 tablet (400 mg total) by mouth daily 90 tablet 3 06/09/2023 Active traMADoL (ULTRAM) 50 mg tablet Take 50 mg by mouth 09/22/2024 Active Active Problems Problem Noted Date Diagnosed Date SSS (sick sinus syndrome) 09/30/2017 Essential hypertension 09/30/2017 NSVT (nonsustained ventricular tachycardia) 09/03 Arteriosclerosis of abdominal aorta 09/21/2015 Overview (12/11/2017): ultrasound Syncope and collapse 09/18/2005 Overview (12/08/2017): (09/06) Dr. Ace, [facility] Found to have syncope with asystolic pauses -- pacer placed (11/07) Dr. Ace -- pacer doing well, no changes Pacemaker 05/04/2005 Overview (12/11/2017): [facility] DDDR with gen change 3-2014 Hypersomnia with sleep apnea 09/05/2004 Overview (12/08/2017): (02/04) Severe FLOYD at [facility] Osteoporosis 12/08/2003 Overview (12/08/2017): (02/04) DEXA [facility] -- still osteopenic, but improving Former smoker, stopped smoking in distant past Overview (12/11/2017): ? stop 12-02-2016 ? Atrial tachycardia Overview (12/11/2017): 26 beats at 180 bpm on pacemaker telemetry Resolved Problems Problem Noted Date Diagnosed Date Resolved Date Atrial tachycardia 09/15/2017 8 Overview (12/11/2017): 26 beats at 180 bpm on pacemaker telemetry Asystole 02/09/2008 12/11/2017 Encounters Date Type Department Care Team Description 03/29/2025 Ancillary Procedure [facility] Cardiology, [facility] [address] [place] [address] Bala Duran MD 02/22/2025 Orders Only CARDIOLOGY - [place], [place] [address] [place] [id number] Kathy Nation RN 01/10/2025 Telephone [facility] Cardiology, [facility] [address] [place] [address] Chinyere Torres, CVT Overdue device clinic from Last 3 Months Family History Medical History Relation Comments Skin cancer Father ALS Mother Other Paternal Uncle nitro Relation Status Comments Father Mother Paternal Uncle Social History Tobacco Use Types Packs/Day Years Used Date Smoking Tobacco: Some Days Cigarettes Smokeless Tobacco: Never Tobacco Cessation:Ready to Q uit: Not Asked; Counseling Given: Not Answered Alcohol Use Standard Drinks/Week Comments Yes 0 (1 standard drink = 0.6 oz pur e alcohol) 7 days a week 2 [facility] Sex and Gender Information Value Date Recorded Sex Assigned at Not on file Legal Sex Male 8:17 AM PST Gender Identity Not on file Sexual Orientation Not on file Last Filed Vital Signs Vital Sign Reading Time Taken Comments Blood Pressure 136/74 11/17/2023 9:14 AM PDT Pulse 74 11/17/2023 9:14 AM PDT Temperature - - Respiratory Rate - - Oxygen Saturation 97% 11/17/2023 9:14 AM PDT Inhaled Oxygen Concentration - - Weight 85.7 kg (189 lb) 11/17/2023 9:14 AM PDT Height 175.3 cm (5' 9.02") 11/17/2023 9:14 AM PD T Body Mass Index 27.9 11/17/2023 9:14 AM PDT Plan of Treatment Health Maintenance Due Date Last Done Comments Disability Screening 1945 Basic Metabolic Panel 1961 Medicare Initial Annual Well ness Visit [id number] 02/02/2008 Zoster (2 of 3) 04/24/2009 02/27/2009 RSV Vaccines (1 - 1-dose 75+ series) 2018 DTaP/Tdap/Td Vaccine (2 - Td or Tdap) 12/07/2022 12/07/2012, 09/05/2004, 09/05/2004, Additional history exists Drug, Alcohol, and Depressio n Screening 05/04/2024 SOGIE 05/04/2024 Covid-19 Vaccine (2024-2 6 season) 2025 09/04/2021, 02/26/2021, 06/23/2020, Additional history exists Influenza Vaccine (#1) 2025 3, 12/30/2021, 02/02/2021, Additional history exists Pneumococcal 50+ Years Completed 7, 08/29/2014, 01/03/2008 Insurance MEDICARE [employer] [address] Care Teams Hammer Shop Supervisor Relationship Specialty Start Date End Date Christine Olson ARNP [address] [place] [address] PCP - General Physician Medical Laboratory Scientist 08/19/22
--- OUTSIDE RECORDS SUMMARY | 2025-04-09 16:45 | EXTERNAL MEDICAL SUMMARY RPT | Encounter Summary ---
Author Organization [facility] Address [address] [address] Care Team Providers Care Print Line Feeder Name Role Phone Background, Provider Not In System Primary Care Provider Christine Olson Primary Care Provider [phone] [phone] Encounter Details Date Type Department Care Team (Late st Contact Info) Description 09/21/2015 Scanned Document SCANNED ONLY Scanned, Document Social [...] on filedocumented in this encounter Care Teams Print Line Feeder Relationship Specialty Start Date End Date Background, Provider Not In System [address] [facility] [address] [place] [address] PCP - General 05/25/17 11/12/17 Christine Olson ARNP [facility] [address] [place] [address] PCP - General Physician Toll Operator 08/19/22 documented as of this encounter
--- OUTSIDE RECORDS SUMMARY | 2025-04-09 16:45 | EXTERNAL MEDICAL SUMMARY RPT | Encounter Summary ---
Author Organization [facility] Address [address] [place] [address] Care Team Providers Care Geologist Petroleum Name Role Phone Pcp, None Selected Primary Care Provider Unavail able Encounter Details Date Type Department Care Team (Late st Contact Info) Description 09/20/2023 Abstract [facility] Rheumatology [place] [address] [place] [address] Gail Carson MD [address] [place] [address] Social History Tobacco Use Types [...] as of this encounter Functional Status * BASDI Question Answer Date of Assessment Author How would you describe the overall level of fatigue / tiredness you have experienced in the past week? 7 09/21/2023 10:42 AM PDT Shannon Castro MA How would you describe the overall level of pain / swelling in joints other than neck, back or hips you have had in the past week? 4 09/21/2023 10:42 AM PDT Shannon Castro MA How would you describe the overall level of discomfort you have had from any tender areas to touch or pressure? 6 09/21/2023 10:42 AM PDT Nidhi Castro MA How would you describe the overall level of morning stiffness you have had from the time you wake up? 6 09/21/2023 10:42 AM Shannon Mina MA How long does your morning stiffness last from the time you wake up? 5 09/21/2023 10:42 AM PDT Shannon Castro MA How would you describe the overall level of pain you have experience in your spine in the past week? 5 09/21/2023 10:42 AM Shannon Mina MA BASDAI Score 4.5 09/21/2023 10:42 AM PDT Alexandr Rosen MA * Over the last week, were you able to... Question Answer Date of Assessment Author Dress yourself, including ty ing shoelaces and doing buttons? 0 09/21/2023 10:39 AM Alexandr Tanner MA Get in and out of bed? 0 09/21/2023 10:39 A M Alexandr Mina MA Lift a full cup or glass to your mouth? 0 09/21/2023 10:39 AM Shannon Mina MA Walk outdoors on flat ground? 0 09/21/2023 10:39 AM Alexandr Mina MA Wash and dry your entire body? 0 09/21/2023 10:39 AM Alexandr Mina MA Bend down to cherry picker operator clothin g from the floor? 1 09/21/2023 10:39 AM Shannon Mina MA Turn regular faucets on and off? 0 09/21/2023 10:39 AM Shannon Mina MA Get in and out of a car, bus , train, or airplane? 0 09/21/2023 10:39 AM Shannon Mina MA Walk two miles or three kilometers, if you wish? 0 09/21/2023 10:39 AM PDT Bg Castro MA Participate in recreational activities and sports as you would like, if you wish? 0 09/21/2023 10:39 AM Bg Mina MA * Rapid3 Questions 2 & 3 Question Answer Date of Assessment Author Pain because of your conditi on over the past week 3.0 09/21/2023 10:39 AM PDT Shannon Castro MA Considering how ways illness and health conditions affect you, how are you doing? 4.0 09/21/2023 10:39 AM PDT Sa jesus Castro MA * Rapid3 Scores Question Answer Date of Assessment Author Rapid3 FN Total 0.3 09/21/2023 10:39 AM PDT Alexandr Irby MA Rapid3 Cumulative Score 7.3 09/21/2023 10:39 AM Alexandr Mina MA documented as of this encounter Plan of Treatment Not on file documented as of this encounter Visit Diagnoses Not on filedocumented in this encounter Care Teams Geologist Petroleum Relationship Specialty Start Date End Date Pcp, None Selected PCP - General 08/18/24 documented as of this encounter
--- OUTSIDE RECORDS SUMMARY | 2025-04-09 16:45 | EXTERNAL MEDICAL SUMMARY RPT | Encounter Summary ---
Author Organization [facility] Address [address] [address] Care Team Providers Care Rn Clinical Name Role Phone Christine Olson Primary Care Provider [phone] [phone] Encounter Details Date Type Department Care Team (Late st Contact Info) Description 12/05/2019 Scanned Document SCANNED ONLY Scanned, Document Social [...] on filedocumented in this encounter Care Teams Rn Clinical Relationship Specialty Start Date End Date Christine Olson ARNP [address] [place], [place] [phone] PCP - General Physician Lbd Teacher 08/19/22 documented as of this encounter
--- OUTSIDE RECORDS SUMMARY | 2025-04-09 16:45 | EXTERNAL MEDICAL SUMMARY RPT | Encounter Summary ---
Author Organization [facility] Address [address] [address] Care Team Providers Care Banjo Repair Person Name Role Phone Background, Provider Not In System Primary Care Provider Christine Olson Primary Care Provider +1 [phone] Encounter Details Date Type Department Care Team (Late st Contact Info) Description 03/18/2017 Scanned Document SCANNED ONLY Scanned, Document Social [...] on filedocumented in this encounter Care Teams Banjo Repair Person Relationship Specialty Start Date End Date Background, Provider Not In System [address] [facility] [address] [place] [address] PCP - General 05/25/17 11/12/17 Christine Olson ARNP [facility] [address] [place] [address] PCP - General Physician Elevator Runner 08/19/22 documented as of this encounter
--- OUTSIDE RECORDS SUMMARY | 2025-04-09 16:45 | EXTERNAL MEDICAL SUMMARY RPT | Encounter Summary ---
Author Organization [facility] Address [address] [address] Care Team Providers Care Makeup Sales Advisor Name Role Phone Background, Provider Not In System Primary Care Provider Christine Olson Primary Care Provider [phone] [phone] Encounter Details Date Type Department Care Team (Late st Contact Info) Description 09/29/2017 Abstract CARDIOLOGY - [place] [address] [place] [address] Kathy Nation, RN [address] [place], [place] [phone] Social History Tobacco Use Types Packs/Day Years [...] on filedocumented in this encounter Care Teams Makeup Sales Advisor Relationship Specialty Start Date End Date Background, Provider Not In System [address] [facility] [address] [place] [id number] PCP - General 05/25/17 11/12/17 Christine Olson ARNP [address] [place] [address] PCP - General Physician Driver Education Instructor 08/19/22 documented as of this encounter
--- OUTSIDE RECORDS SUMMARY | 2025-04-09 16:45 | EXTERNAL MEDICAL SUMMARY RPT | Encounter Summary ---
Author Organization [facility] Address [address] [address] Care Team Providers Care Test Worker Name Role Phone Christine Olson Primary Care Provider +1 -[phone] Encounter Details Date Type Department Care Team (Late st Contact Info) Description 06/02/2019 Scanned Document SCANNED ONLY Scanned, Document Social [...] on filedocumented in this encounter Care Teams Test Worker Relationship Specialty Start Date End Date Christine Olson ARNP [address] [place], [place] [phone] PCP - General Physician Child Care Cook 08/19/22 documented as of this encounter
--- OUTSIDE RECORDS SUMMARY | 2025-04-09 16:45 | EXTERNAL MEDICAL SUMMARY RPT | Encounter Summary ---
Author Organization [facility] Address [employer] [address] Care Team Providers Care Ibm Mainframe Developer Name Role Phone Christine Olson Primary Care Provider [phone] [phone] Encounter Details Date Type Department Care Team (Late st Contact Info) Description 03/13/2023 Scanned Document SCANNED ONLY Scanned, Document Social History Tobacco Use Types Packs/Day Years Used Date Smoking Tobacco: Some Days Cigarettes Smokeless Tobacco: Never Alcohol Use Standard Drinks/Week Comments Yes 0 (1 standard drink = 0.6 oz pur e alcohol) 7 days a week 2 [facility] Sex and Gender Information Value Date Recorded Sex Assigned at Not on file Legal Sex Male 8:17 AM PST Gender Identity Not on file Sexual Orientation Not on file documented as of this encounter Plan of Treatment Not on file documented as of this encounter Visit Diagnoses Not on filedocumented in this encounter Care Teams Ibm Mainframe Developer Relationship Specialty Start Date End Date Christine Olson ARNP [address] [place] [address] PCP - General Physician Film Sorter 08/19/22 documented as of this encounter
--- OUTSIDE RECORDS SUMMARY | 2025-04-09 16:45 | EXTERNAL MEDICAL SUMMARY RPT | Encounter Summary ---
Author Organization [facility] Address [address] [address] Care Team Providers Care Automobile Accessories Installer Name Role Phone Christine Olson Primary Care Provider +1 -[phone] Encounter Details Date Type Department Care Team (Late st Contact Info) Description 03/17/2018 Scanned Document SCANNED ONLY Scanned, Document Social [...] on filedocumented in this encounter Care Teams Automobile Accessories Installer Relationship Specialty Start Date End Date Christine Olson ARNP [address] [place], [place] [phone] PCP - General Physician Stores Clerk 08/19/22 documented as of this encounter
--- OUTSIDE RECORDS SUMMARY | 2025-04-09 16:45 | EXTERNAL MEDICAL SUMMARY RPT | Clinical Summary ---
Author Organization [facility] Address [address] [place] [address] Care Team Providers Care Forklift Technician Name Role Phone Pcp, None Selected Primary Care Provider Unavail able Allergies No known active allergies Medications lisinopril (PRINIVIL,ZESTRI L) 20 mg tablet Take 1 tablet (20 mg total) by mouth daily Active atorvastatin (LIPITOR) 20 mg tablet Take 1 tablet (20 mg total) by mouth daily Active alfuzosin (UROXATRAL) 10 mg 24 hr tablet TAKE ONE TABLET BY MOUTH QD FOLLOWING A MEAL; FOR PROSTATE AND/OR URINARY SYMPTOMS 1 Active ascorbic acid, vitamin C, (VITAMIN C) 100 mg tablet Take 1 tablet (100 mg total) by mouth daily Active multivitamin (THERAGRAN) tablet tablet Take 1 tablet by mouth daily Active amLODIPine (NORVASC) 5 mg tablet Take 1 tablet (5 mg total) by mouth daily 2 Active carboxymethylcel lulose (REFRESH PLUS) 0.5 % dropperette Administer into affected eye(s) every 6 hours Active cholecalciferol, vitamin D3, 50 mcg (2,000 unit) tablet Take by mouth daily Active clotrimazole (LOTRIMIN) 1 % cream APPLY A SMALL AMOUNT TOPICALLY TWICE A DAY TO AFFECTED AREA(S) IN GROIN FOR 2-4 WEEKS THEN NEEDED FOR MAINTENANCE. FOR RASH 2 Active cyanocobalamin/f olic acid (vitamin P22-nyqwv acid) 1,000-400 mcg lozenge Active hydroCHLOROthiaz [place] (MICROZIDE) 12.5 mg capsule Take 1 capsule (12.5 mg total) by mouth every morning 2 Active sildenafiL (VIAGRA) 100 mg tablet TAKE ONE-HALF TO ONE TABLET BY MOUTH ONCE DIRECTED NEEDED ONE HOUR BEFORE SEXUAL ACTIVITY. NOT TO EXCEED ONCE PER DAY. * AVOID GRAPEFRUIT PRODUCTS 2 Active triamcinolone (KENALOG) 0.1 % ointment APPLY SMALL AMOUNT TOPICALLY TWICE A DAY TO AFFECTED AREA(S) IN GROIN FOR 2 WEEKS THEN NEEDED. (APPLY SAME TIME NYSTATIN OINTMENT) FOR RASH 2 Active co-enzyme Q-10 30 mg capsule Take 1 capsule (30 mg total) by mouth daily Active clobetasoL (TEMOVATE) 0.05 % external solution APPLY THIN FILM TOPICALLY TWICE A DAY TO ITCHY AREAS ON SCALP FOR TWO WEEKS, THEN NEEDED FOR SYMPTOMS. DO NOT GET ON FACE OR NEAR EYES. USE DIRECTED 3 Active HYDROmorphone (DILAUDID) 4 mg tablet Take 0.5 tablets (2 mg total) by mouth every 3 hours as needed 3 Active magnesium oxide (MAG-OX) 400 mg (241.3 mg magnesium) tablet Take 1 tablet (400 mg total) by mouth 4 Active methocarbamoL (ROBAXIN) 750 mg tablet Take 1 tablet (750 mg total) by mouth every 8 hours 3 Active metoprolol succinate XL (TOPROL-XL) 50 mg 24 hr tablet Take 1 tablet (50 mg total) by mouth daily 4 Active Active Problems Problem Noted Date Diagnosed Date Alcohol intake above recommended sensible limits 09/21/2023 Chronic post-traumatic stress disorder (PTSD) Obstructive sleep apnea syndrome 09/21/2023 Overview (09/21/2023): has cpap but has not been using Feb 18, 2011 Entered By: LIZZY PRESCOTT Comment: has cpap but has not been using Traumatic closed fracture of C1 vertebra with minimal displacement, initial encounter 04/06/2023 On prednisone therapy 03/11/2022 Ankylosing spondylitis 03/11/2022 Screening for rheumatic disorder 02/27/2022 Elevated C-reactive protein (CRP) 02/27/2022 Polymyalgia rheumatica 02/27/2022 Alcohol use 02/27/2022 Colon cancer screening 01/10/2017 Overview (01/29/2017): Added automatically from request for surgery [id number] Arteriosclerosis of abdominal aorta 09/21/2015 Overview (09/21/2023): ultrasound PSVT (paroxysmal supraventricular tachycardia) 1 05/16/2008 SSS (sick sinus syndrome) 10/03/2008 Syncope and collapse 09/18/2005 Overview (09/21/2023): (09/06) Dr. Ace, [facility] Found to have syncope with asystolic pauses -- pacer placed (11/07) Dr. Ace -- pacer doing well, no changes (09/06) Dr. Ace [facility] Found to have syncope with asystolic pauses -- pacer placed (11/07) Dr. Ace -- pacer doing well, no changes Pacemaker 05/04/2005 Overview (09/21/2023): [facility] DDDR with gen change 3-2014 Hyperlipidemia 12/08/2003 Overview (09/21/2023): (12/08) Goal LDL < 130 CHOLESTEROL (TOTAL) 204 (H) <200 mg/dL 12/04/2006 8:13 AM [facility] TRIGLYCERIDE 84 <150 mg/dL 12/04/2006 8:13 AM [facility] CHOLESTEROL (HDL) 56 >40 mg/dL 12/04/2006 8:13 AM [facility] CHOLESTEROL (LDL) 131 (H) <130 mg/dL 12/04/2006 8:13 AM [facility] Normal LFTs Osteoporosis 12/08/2003 Overview (09/21/2023): (02/04) [facility] -- still osteopenic, but improving (02/04) DEXA [facility] -- still osteopenic, but improving Resolved Problems Problem Noted Date Diagnosed Date Resolved Date Myalgia 02/27/2022 02/27/2022 Immunizations Immunization Administration Dates Next Due DTaP, Unspecified 09/05/2004,05/30/1992 FLU High Dose 65+ Trivalent, PF (FLUZONE) 03/18/2017,01/28/2016 FLU PF 6+Mos Quad (Fluzone, FluLaval, Fluarix) 2018 FLU PF 6+Mos Trivalent 0.5ML (Fluzone, FluLaval, Fluarix) 02/06/2023,12/30/2021,02/02/2021,04/02 H1N1 All Forms 05/09/2009 Influenza, Seasonal, Injectable 04/02/2006 Live Zoster (Zostavax) 02/27/2009 Moderna Covid Vaccine, Bivalent (12+) 02/15/2022 Moderna SARS-CoV-2 Vaccine Monovalent 02/26/2021 ,06/23/2020,05/29/2020 Pfizer Covid-19 Vaccine, (12 +) Seasonal 03/06/2023 [id number]-[id number] Vaccine 09/04/2021 Pneumococcal Conjugate PCV13 ([id number]) 08/29/2014 Pneumococcal Polysaccharide PPV23 ([id number]) 08/26/2016 Pneumococcal, Unspecified 01/03/2008 Recombinant Zoster (Shingrix) 11/15/2019, 019 TD Preservative Free (Generic) 09/05/2004,1992 TD Preservative Free (Tenivac) 09/05/2004 Td, Unspecified 03/19/2007 Tdap (Boostrix,Adacel) 12/07/2012 Family History Medical History Relation Comments Cancer Father Hearing loss Father ALS Mother Relation Status Comments Father Mother Social History Tobacco Use Types Packs/Day Years [...] Orientation Straight 02/27/2022 2: 43 PM PDT Last Filed Vital Signs Vital Sign Reading Time Taken Comments Blood Pressure 178/102 12/04/2023 1:42 PM PDT Pulse 94 12/04/2023 1:39 PM PDT Temperature - - Respiratory Rate 18 03/11/2022 11:59 AM PST Oxygen Saturation 97% 12/04/2023 1:39 PM PDT Inhaled Oxygen Concentration - - Weight 85.7 kg (188 lb 15 oz) 12/04/2023 1:39 PM PDT Height 175.3 cm (5' 9.02") 12/04/2023 1:39 PM PD T Body Mass Index 27.89 12/04/2023 1:39 PM PDT Plan of Treatment Health Maintenance Due Date Last Done Comments Medicare Annual Wellness (AWV) 1943 RSV Patients Over 60 years OR qualifying ( Patients) (1 - 1-dose 75+ series) 2018 DTaP,Tdap,and Td Vaccines (7 - Td or Tdap) 12/07/2022 12/07/2012, 03/19/2007, 09/05/2004, Additional history exists Depression Screening (PHQ-2) 03/11/2023 03/11/2022, 02/27/2022 Fall Risk Screening 03/11/2023 03/11/2022, 2 COVID-19 Vaccine ( season) 2025 03/06/2023, 02/15/2022, 09/04/2021, Additional history exists Influenza Vaccine (#1) 2025 3, 12/30/2021, 02/02/2021, Additional history exists Varicella Vaccines Discontinued 02/27/2009 HM Pneumococcal Adult 50+ Completed 2016, 08/29/2014, 01/03/2008 HM Pneumococcal Combined Age 0-49 Discontinued 08/26/2016, 08/29/2014 Zoster Vaccines Completed 11/15/2019, 11/0 11/2018, 02/27/2009 HPV Vaccines Aged Out No longer eligi ble based on patient's age to complete this topic Hepatitis A Vaccines Aged Out No long er eligible based on patient's age to complete this topic Hepatitis B Vaccines Aged Out No long er eligible based on patient's age to complete this topic IPV Vaccines Aged Out No longer eligi ble based on patient's age to complete this topic MMR Vaccines Aged Out No longer eligi ble based on patient's age to complete this topic Insurance MEDICARE PART A AND B Care Teams Forklift Technician Relationship Specialty Start Date End Date Pcp, None Selected PCP - General 08/18/24
--- OUTSIDE RECORDS SUMMARY | 2025-04-09 16:45 | EXTERNAL MEDICAL SUMMARY RPT | Encounter Summary ---
Author Organization [facility] Address [address] [address] Care Team Providers Care Meat Cutting Block Repairer Name Role Phone Background, Provider Not In System Primary Care Provider Christine Olson Primary Care Provider [phone] Encounter Details Date Type Department Care Team (Late st Contact Info) Description 09/08/2017 Scanned Document SCANNED ONLY Scanned, Document Social [...] on filedocumented in this encounter Care Teams Meat Cutting Block Repairer Relationship Specialty Start Date End Date Background, Provider Not In System [address] [facility] [address] [place] [address] PCP - General 05/25/17 11/12/17 Christine Olson ARNP [facility] [address] [place] [address] PCP - General Physician Social Media Senior Associate 08/19/22 documented as of this encounter
--- OUTSIDE RECORDS SUMMARY | 2025-04-09 16:45 | EXTERNAL MEDICAL SUMMARY RPT | Encounter Summary ---
Author Organization [facility] Address [address] [place] [address] Care Team Providers Care Charge Gang Weigher Name Role Phone Pcp, None Selected Primary Care Provider Unavail able Encounter Details Date Type Department Care Team (Late st Contact Info) Description 12/03/2023 Abstract [facility] Rheumatology [place] [address] [place] [address] Gail Carson MD [address] [place] [address] Social History Tobacco Use Types [...] on filedocumented in this encounter Care Teams Charge Gang Weigher Relationship Specialty Start Date End Date Pcp, None Selected PCP - General 08/18/24 documented as of this encounter
--- OUTSIDE RECORDS SUMMARY | 2025-04-09 16:45 | EXTERNAL MEDICAL SUMMARY RPT | Encounter Summary ---
Author Organization [facility] Address [address] [place] [address] Care Team Providers Care Data Clerk Name Role Phone Pcp, None Selected Primary Care Provider Unavail able Encounter Details Date Type Department Care Team (Late st Contact Info) Description 09/19/2022 Abstract [facility] Rheumatology [place] [address] [place] [address] Gail Carson MD [address] [place] [address] Social History Tobacco Use Types [...] on filedocumented in this encounter Care Teams Data Clerk Relationship Specialty Start Date End Date Pcp, None Selected PCP - General 08/18/24 documented as of this encounter
--- OUTSIDE RECORDS SUMMARY | 2025-04-09 16:45 | EXTERNAL MEDICAL SUMMARY RPT | Encounter Summary ---
Author Organization [facility] Address [address] [address] Care Team Providers Care Cottonseed Meat Presser Name Role Phone Christine Olson Primary Care Provider [phone] Encounter Details Date Type Department Care Team (Late st Contact Info) Description 11/15/2019 Scanned Document SCANNED ONLY Scanned, Document Social [...] on filedocumented in this encounter Care Teams Cottonseed Meat Presser Relationship Specialty Start Date End Date Christine Olson ARNP [address] [place], [place] [id number] PCP - General Physician Electron Beam Machine Welder Setter 08/19/22 documented as of this encounter
--- OUTSIDE RECORDS SUMMARY | 2025-04-09 16:45 | EXTERNAL MEDICAL SUMMARY RPT | Encounter Summary ---
Author Organization [facility] Address [address] [address] Care Team Providers Care Hand Shoe Cutter Name Role Phone Christine Olson Primary Care Provider [phone] Encounter Details Date Type Department Care Team (Late st Contact Info) Description 10/23/2021 Scanned Document SCANNED ONLY Scanned, Document Social [...] on filedocumented in this encounter Care Teams Hand Shoe Cutter Relationship Specialty Start Date End Date Christine Olosn ARNP [address] [place], [place] [id number] PCP - General Physician Locomotive Crane Operator 08/19/22 documented as of this encounter
[2025-04-09 17:21] LABS: AMPHETAMINE SCREEN,URINE NEGATIVE (NEGATIVE); BARBITURATE SCREEN,UR NEGATIVE (NEGATIVE); BENZODIAZEPINES SCREEN, URINE NEGATIVE (NEGATIVE); BUPRENORPHINE SCREEN, URINE NEGATIVE (NEGATIVE); COCAINE SCREEN URINE NEGATIVE (NEGATIVE); METHADONE SCREEN, URINE NEGATIVE (NEGATIVE); METHAMPHETAMINES SCREEN, URINE NEGATIVE (NEGATIVE); OPIATE SCREEN, URINE NEGATIVE (NEGATIVE); THC CANNABINOID SCREEN, URINE NEGATIVE (NEGATIVE)
--- NOTE | 2025-04-09 17:49 | HISTORY & PHYSICAL EXAMINATION ---
Chief Complaint Chief Complaint Chief Complaint: Abd pain, failure to thrive CPT Codes:: 15147 History of Present Illness Admitted From Admitted From:: ER History Obtained From Records Reviewed: ER History obtained from: ER physician, patient, patient's sister, licensed clinical social worker Exam Limitations: Slightly confused, A&Ox2 History of Present Illness HPI Comment/Other: Lillie is an 80 yoM with an extensive medical history, presenting with abdominal pain with CT findings suggestive of colitis, weakness, increasing difficulty with self care and mobility, and failure to thrive. Pt and pt's sister who is DPOA relate that he had been increasingly weak and unable to get around the house and to the bathroom and she called EMS. Due to lack of hygiene in house, human and pet feces throughout, trash accumulation, and general state of the structure, EMS called [facility]PS. Per sister's concerns, she believes he can no longer take core of himself in the current setting and requests social work to help innitiate a transition to a SNF or care home living facility. Pt's sister relates that his hx includes pacemaker implantation, CAD, PVD, PTSD, alcohol use, tobacco use, ankylosing spondylitis, C1 cervical repair, polymyalgia rheumatica, skin neoplasm, multiple skin wounds in various states of healing and various wounds on his person from dog bites, falls, etc. Pt's sister is very worried about his living conditions, his ability to care for himself, and his alcohol use and related to us that we should know how much he drinks, an amount which the patient loosely described as a "small glass of vodka per day". It was also related that his organizational development director had recently seen him for a PVD workup and had prescribed a pill that they could not recall the name of. We ceci try to obtain necessary records during his course. Per ER physician and at the behest of pt family, pt is being admitted for observation and workup for the colitis, weakness, and working with pt family and social work to seek the best route for his care home care. GOC and DNR status discussion ongoing. Meds/Allgy Home Medications Ambulatory Orders Medication Instructions Recorded Confirmed simvastatin 40 mg tablet 40 mg ORAL DAILY 01/12/16 alendronate 70 mg tablet 70 mg PO QWEEK 02/09/2410/26 alfuzosin 10 mg tablet,extended 10 mg PO QDAY 02/09/24 04/08/25 release 24 hr ascorbate calcium (vitamin C) PO 02/09/24 04/08/25 cholecalciferol (vitamin D3) PO 02/09/24 04/08/25 coenzyme Q10 [Co Q-10] PO 02/09/24 04/08/25 fish oil-dha-epa PO 02/09/24 04/08/25 hydrochlorothiazide 12.5 mg tablet 12.5 mg PO QAM 12/2504/08/25 lisinopril 30 mg tablet 30 mg PO QDAY 02/09/2404/08 multivitamin with iron PO 02/09/24 04/08/25 Allergies Allergies Allergy/AdvReac Type Severity Reaction Status Date / Time No Known Drug Allergies Allergy Verified 04/08/25 13:06 [facility] Active Problems All Active Problems (Updated 04/09/25 @ 17:48 by Mike Mccollum) Acute dehydration (Acute) Colitis (Acute) Alteration in self-care ability (Acute) General weakness (Acute) Infected dog bite of left index finger (Acute) Abrasion, right lower leg, initial encounter (Acute 09/16/23) Abrasion, left knee, initial encounter (Acute) Abrasion of left forearm, initial encounter (Acute) Cellulitis of third toe of left foot (Acute) Subungual hematoma of great toe of left foot (Acute) Skin abrasion (Acute) Fall (Acute) Elevated blood pressure reading in office with diagnosis of hypertension (Acute) Fall from slip, trip, or stumble (Acute) Rib pain on left side (Acute) Vision changes (Acute) Tinea corporis (Acute) Diarrhea (Acute) Unspecified hearing loss, bilateral (Acute 08/30/21) Sun-damaged skin (Acute 01/04/21) Seborrheic keratosis (Acute 03/24/22) Marital relationship problem (Acute 09/16/23) PTSD (post-traumatic stress disorder) (Acute 09/23/16) Polymyalgia rheumatica (Acute 03/24/22) Palpitations (Acute 03/24/22) Pain in unspecified foot (Acute 09/09/21) Obstructive sleep apnea (Acute 09/23/16) Neoplasm of uncertain behavior (Acute 02/14/21) Joint pain (Acute 02/07/22) Irritable bowel syndrome with diarrhea (Acute 09/09/21) Impingement syndrome of left shoulder (Acute 09/09/21) Hypertension (Acute 09/23/16) Hyperlipidemia (Acute 09/23/16) Fracture of neck, unspecified, subsequent encounter (Acute 05/06/23) Elevated erythrocyte sedimentation rate (Acute 02/11/22) Erectile dysfunction of organic origin (Acute 09/23/16) Dry skin (Acute 03/06/23) Costochondral chest pain (Acute 05/20/22) Colon cancer screening (Acute 09/09/21) Mckenna angioma (Acute 03/24/22) Elevated C-reactive protein (Acute 02/11/22) Neoplasm of unspecified behavior of bone, soft tissue, and skin (Acute 08/22/22) BMI 28.0-28.9,adult (Acute 12/25/22) Benign prostatic hyperplasia with lower urinary tract symptoms (Acute 12/24/21) Atopic dermatitis (Acute 03/06/23) Ankylosing spondylitis (Acute 03/24/22) Alcohol use (Acute 11/29/18) Impairment of balance (Acute) Osteopenia (Acute) Cervicalgia (Acute) Medication management (Acute) Medical History Medical History (Updated 04/09/25 @ 17:48 by Mike Mccollum) Headache, unspecified Abrasion, right lower leg, initial encounter Cough (11/29/18) Hypokalemia (12/30/21) Hyponatremia (04/14/23) Microcytic anemia (12/30/21) Macrocytosis (09/10/21) Macrocytic anemia (09/05/23) Surgical History Surgical History Fusion of spine of cervical region Pacemaker (08/30/21) Social History Social History Smoking Status: Current some day smoker How many cigarettes a day do you smoke? (20 cigarettes=1 Pk): 3 Second hand tobacco smoke exposure: Yes Do you dip or chew tobacco?: No Do you vape?: No Patient requests smoking cessation consult: No Initiate information on smoking cessation: No Level: Independent Do you feel safe in your home environment?: Yes History of physical, verbal, emotional, or financial abuse?: No ETOH Use: Liquor Frequency: Daily POLST Patient has POLST: No Review of Systems Pt denies NV, CP, SOA, syncope, dysuria, fever, rigor, myalgias, melena, hematochezia. Constitutional Reports: Fatigue and Weakness Eyes Reports: Change in vision Endocrine Reports: Fatigue Exam Exam Vital Signs: Vital Signs x48h Temp Pulse Resp BP Pulse Ox 04/10/25 04:53 98.2 F 86 18 131/67 H 98 04/09/25 23:28 98.2 F 84 18 130/67 98 Constitutional Pt generally unkempt, with slight alcohol odor. Pt pink, warm, dry. No obvious distress. No increased WOB or SOA. HENMT normocephalic Eyes PERRL and no scleral icterus Neck/C-Spine visual inspection normal Chest inspection of chest normal Respiratory breath sounds equal bilaterally, normal respiratory effort, no wheezes, no rales, no retractions and no use of accessory muscles Cardiovascular normal heart rate noted Gastrointestinal abdomen normal to inspection, nontender to palpation and nondistended Genitourinary no CVA tenderness and bladder normal to palpation Extremities abnormal to inspection Lower extremities mottled and red-purple, cap refill >3 seconds, with many wounds in different states of healing, nail spooning, L great toe subungual hematoma. Upper extremities show sun spots, and many wounds in various states of healing. Neurology litigation attorney II-XII intact and no fasciculations noted No asterixis or tremor noted in outstretched hand test. Skin skin color abnormal, rash noted, lesion(s) noted, wound(s) noted, laceration(s) noted, no jaundice, mottling noted and nails abnormality noted Conclusion/Plan Problem List (1) Colitis: (2) General weakness: (3) Acute dehydration: Plan: Plan is for the above three conditions. Pt has findings on CT suggestive of colitis in the setting of transient abd pain, constipation, and 2 rheumatic conditions. With a slightly elevated WBC, but no other clear infective sources or symptoms; will also consider possible autoimmune etiology. UA showed minor ketones but otherwise undiagnostic. Radiographic findings were inconclusive for etiology of the inflammation, and showed no evidence of bowel blockage. -Additional labs include serum procalcitonin, stool panel, guaic, respiratory panel. -Plan to treat supportively at this time, with IV fluids, oral feeding, other tx as indicated by additional diagnostics. (4) Alteration in self-care ability: Plan: Social work and pt's sister/DPOA working on these elements, to try to find long- term care solutions. This process still ongoing. Main plan for this visit is to provide supportive care, prevent any further or increasing illness, and find appropriate dispo. (5) Alcohol use: Plan: Pt <8 on CIWA scale, but endorses daily etoh use of "a small glass of vodka" every day. Pt does have slight alcohol odor. No tremors noted on outstretched hands test, no diaphoresis, agitation, changes in sensorium, and only mild confusion (was off on the date by 3 days.) Otherwise presents very pleasantly, with no acute distress. -Monitor for any changes in clinical picture suggestive of acute withdrawal syndrome. -Supportive measures and oral thiamine 100 mg/day supplementation at this time. (6) Skin abrasion: Plan: Pt presents with multiple superficial wounds in various stages of healing, refer to wound care photos. No wounds acutely septic appearing, and none have appreciable purulence, but given one wound of dog bite etiology, can consider empiric Augmentin. -Initial wound care tonight with wet/dry dressings and production team leader will be consulted tomorrow, appreciate their opinion. (7) Cough: Plan: Pt presents with a dry cough in the setting of unilateral atelectasis on imaging with no other respiratory complaints. Pt has good RA sats, denies SOA, no increased WOB was appreciated, and no cyanosis, accessory muscle use, or other respiratory s/s present. -Will consider additional workup for atelectatic changes, but no acute respiratory distress at this time. Qualifiers: Cough type: unspecified Qualified Code(s): R05.9 - Cough, unspecified Lab Results Lab results reviewed: Yes 04/10/25 04:58 04/10/25 04:58 Diagnostic Imaging Results Diagnostic Imaging Results: positive Final report reviewed and Read independently EKG Results EKG Interpreted Independently: Yes EKG Comparison: Unchanged from prior EKG EKG Findings: RBBB, NSR, LVH
[2025-04-09] MEDS ORDERED: ACETAMINOPHEN 325 MG TABLET PO PRN (18:56)
[2025-04-09] MEDS ORDERED: ONDANSETRON ODT 4 MG TABLET TL PRN (18:56)
[2025-04-09] MEDS ORDERED: ONDANSETRON 4 MG/2 ML VIAL IVP PRN (18:56)
[2025-04-09] MEDS ORDERED: SODIUM CHLORIDE FLUSH 0.9% 10 ML SYRINGE IVP PRN (18:56)
[2025-04-09] MEDS: LACTATED RINGERS 1,000 ML IV SCH (19:20)
[2025-04-09] MEDS: SODIUM CHLORIDE FLUSH 0.9% 10 ML SYRINGE IVP SCH (19:20)
[2025-04-09 19:33] LABS: B. PARAPERTUSSIS- RESP PCR PAN NOT DETECTED; B. PERTUSSIS- RESP PCR PANEL NOT DETECTED; CORONAVIRUS 229E-RESP PCR NOT DETECTED; CORONAVIRUS HKU1-RESP PCR NOT DETECTED; CORONAVIRUS NL63-RESP PCR NOT DETECTED; CORONAVIRUS OC43-RESP PCR NOT DETECTED; HUMAN METAPNEUMOVIRUS NOT DETECTED; INFLUENZA A- RESP PCR PANEL NOT DETECTED; INFLUENZA B - RESP PCR PANEL NOT DETECTED; PARAINFLUENZA VIRUS 1 NOT DETECTED; PARAINFLUENZA VIRUS 2 NOT DETECTED; PARAINFLUENZA VIRUS 4 NOT DETECTED; RHINOVIRUS/ENTEROVIRUS NOT DETECTED; RSV- RESP PCR PANEL NOT DETECTED; SARS-CoV-2 -RESP PCR PANEL NOT DETECTED
[2025-04-09 19:34] LABS: C. PNEUMONIAE- RESP PCR PANEL NOT DETECTED; M. PNEUMONIAE- RESP PCR PANEL NOT DETECTED
[2025-04-09] MEDS: VANCOMYCIN 125 MG CAPSULE PO SCH (22:59)
[2025-04-10 05:14] LABS: HCT - HEMATOCRIT 34.0 % (42.0-52.0); HGB - HEMOGLOBIN 11.7 g/dL (14.0-18.0); MEAN PLATELET VOLUME 8.4 fL (7.4-11.4); PLT - PLATELET COUNT 254.0 10^3/uL (130-450); RED CELL DISTRIBUTION WIDTH 12.6 % (12.0-15.0)
[2025-04-10 05:35] LABS: BUN - BLOOD UREA NITROGEN 9.0 mg/dL (6-20); CARBON DIOXIDE - CO2 28.0 mmol/L (21-32); CREATININE 0.6 mg/dL (0.6-1.3); GFR - MDRD 129.0 (>89)
[2025-04-10] MEDS: PRENATAL VITAMIN TABLET PO SCH (08:17)
[2025-04-10] MEDS: ENOXAPARIN 40 MG/0.4 ML SYRINGE SUBQ SCH (08:17)
[2025-04-10] MEDS: AMOX/CLAV 875 MG/125 MG TABLET PO SCH (08:17)
[2025-04-10] MEDS: THIAMINE 100 MG TABLET PO SCH (08:17)
[2025-04-10] MEDS: TETANUS/DIPHTHERIA/PERTUSSIS 0.5 ML SYRINGE IM ONE (08:18)
--- NOTE | 2025-04-10 08:38 | PROVIDER PROGRESS NOTE ---
Subjective Prog Note Date Prog Note Date: 04/10/25 Prog Note Time: 11:48 Subjective Subjective: Pt relates that he subjectively feels better, but has continued to have copious, loose, watery, mucoid stools with no melena or hematochezia. He denies any fevers, chills, shortness of breath. He is having no abdominal pain at this time. He is eating and drinkng well. His sister, and JACQUIE, was spoken with extensively at bedside about overall plans of care. She is hopeful to work with social work to help facilitate a safe discharge plan. Current Medications Current Medications Current Medications: Current Medications Generic Name Dose Route Start Last Admin Trade Name Freq PRN Reason Stop Dose Admin Acetaminophen 650 mg 04/09/25 18:56 Acetaminophen 325 Mg Tablet PO Q4HR PRN Pain 1 to 4, or Fever Amoxicillin/Clavulanate Potassium 1 tab 04/10/25 09:00 04/10/25 08:17 Amox/Clav 875 Mg/125 Mg Tablet PO 04/13/25 08:59 1 tab BID CHRISSIE Administration Enoxaparin Sodium 40 mg 04/10/25 09:00 04/10/25 08:17 Enoxaparin 40 Mg/0.4 Ml Syringe SUBQ 40 mg DAILY CHRISSIE Administration Lactated Ringer's 1,000 mls @ 75 mls/hr 04/09/25 18:56 04/09/25 19:20 Lr IV 75 mls/hr .[id number] CHRISSIE Administration Lisinopril 40 mg 04/09/25 18:58 04/10/25 08:17 Lisinopril 20 Mg Tablet PO 40 mg DAILY CHRISSIE Administration Ondansetron HCl 4 mg 04/09/25 18:56 Ondansetron Odt 4 Mg Tablet TL Q6HR PRN Nausea / Vomiting Ondansetron HCl 4 mg 04/09/25 18:56 Ondansetron 4 Mg/2 Ml Vial IVP Q6HR PRN Nausea / Vomiting Multivit/Folic Acid/Iron 1 tab 04/10/25 08:00 04/10/25 08:17 Vitamin Tablet PO 1 tab DAILYWM CHRISSIE Administration Sodium Chloride 10 ml 04/09/25 18:56 04/10/25 08:18 Sodium Chloride Flush 0.9% 10 Ml Syringe IVP Not Given 0100,0900,1700 CHRISSIE Sodium Chloride 10 ml 04/09/25 18:56 Sodium Chloride Flush 0.9% 10 Ml Syringe IVP PRN PRN NEEDED PER PROVIDER ORDERS Thiamine HCl 100 mg 04/10/25 09:00 04/10/25 08:17 Thiamine 100 Mg Tablet PO 100 mg DAILY CHRISSIE Administration Vancomycin HCl 125 mg 04/09/25 23:00 04/10/25 08:17 Vancomycin 125 Mg Capsule PO 125 mg QID CHRISSIE Administration Objective Vital Signs/Intake & Output Reviewed Vital Signs: Yes Vital Signs: Vital Signs x48h Temp Pulse Resp BP Pulse Ox 04/10/25 08:00 36.7 C 82 20 134/66 H 94 04/10/25 04:53 36.8 C 86 18 131/67 H 98 Intake & Output: Intake & Output 04/07/25 04/08/25 04/09/25 04/10/25 23:59 23:59 23:59 23:59 Intake Total 1200 / 1200 Output Total 400 / 400 325 / 325 Balance 800 / 800 -325 / -325 Weight (kg) 80 kg Objective General Appearance: positive No acute distress and Alert; negative Anxious or Lethargic Eyes Bilateral: positive Normal inspection, PERRL and EOMI ENT: positive ENT inspection nml, Pharynx nml and No signs of dehydration Neck: positive Nml inspection, Thyroid nml and No JVD Respiratory: positive Chest non-tender, No respiratory distress and Breath sounds nml; negative Wheezes, Rales or Rhonchi Cardiovascular: positive Regular rate & rhythm, No murmur and No gallop; negative Tachycardia Abdomen: positive Non-tender and Nml bowel sounds; negative Tenderness, Guarding, Hepatomegaly, Splenomegaly or Abnml bowel sounds Back: positive Nml inspection; negative CVA tenderness (R) or CVA tenderness (L) Skin: positive Color nml, Warm and Other (Multiple abrasions and scrapes noted in all extremities in various stages of healing. Left index finger with bite aurea with good granulation tissue, mild erythema, no drainage or fluctuence noted. ) Extremities: positive No pedal edema Neurologic/Psychiatric: positive Oriented x3, CN's nml (2-12), Motor nml, Sensation nml and Other (assisted memory intact. Difficulty with short term memory. Able to answer questions appropriately at most times. ) Lab Results 04/10/25 04:58 04/10/25 04:58 Other Labs: Lab Results x24hrs 04/10/25 04/09/25 04/09/25 Range/Units 04:58 20:21 17:46 WBC 11.4 H (4.8-10.8) x10^3/uL RBC 3.44 L (4.70-6.10) 10^6/uL Hgb 11.7 L (14.0-18.0) g/dL Hct 34.0 L (42.0-52.0) % MCV 98.8 H (80.0-94.0) fL MCH 34.0 H (27.0-31.0) pg MCHC 34.4 (32.0-36.0) g/dL RDW 12.6 (12.0-15.0) % Plt Count 254 (130-450) 10^3/uL MPV 8.4 (7.4-11.4) fL Neut # (Auto) (1.5-6.6) 10^3/uL Lymph # (Auto) (1.5-3.5) 10^3/uL Butler # (Auto) (0.0-1.0) 10^3/uL Eos # (Auto) (0.0-0.7) 10^3/uL Baso # (Auto) (0.0-0.1) 10^3/uL Absolute Nucleated RBC x10^3/uL Nucleated RBC % /100WBC Sodium 136 (135-145) mmol/L Potassium 3.9 (3.5-4.5) mmol/L Chloride 102 (101-111) mmol/L Carbon Dioxide 28 (21-32) mmol/L Anion Gap 6.0 (6-13) BUN 9 (6-20) mg/dL Creatinine 0.6 (0.6-1.3) mg/dL Estimated GFR (MDRD) 129 (>89) Glucose 98 (74-104) mg/dL Calcium 8.8 (8.5-10.3) mg/dL Phosphorus (2.5-5.0) mg/dL Magnesium 2.3 (1.7-2.3) mg/dL Total Bilirubin (0.2-1.0) mg/dL AST (10-42) IU/L ALT (10-60) IU/L Alkaline Phosphatase (42-121) IU/L Total Creatine Kinase (30-223) IU/L Total Protein (6.4-8.9) g/dL Albumin (3.2-5.5) g/dL Globulin (2.1-4.2) g/dL Albumin/Globulin Ratio (1.0-2.2) Lipase (11-82) U/L Vitamin B12 (180-914) pg/mL Procalcitonin Immunoas 0.15 (<0.5) ng/mL TSH (0.34-5.60) uIU/mL Urine Color Urine Clarity (CLEAR) Urine pH (5.0-7.5) PH Ur Specific [place] (1.002-1.030) Urine Protein (NEGATIVE) mg/dL Urine Glucose (UA) (NEGATIVE) mg/dL Urine Ketones (NEGATIVE) mg/dL Urine Occult Blood (NEGATIVE) Urine Nitrite (NEGATIVE) Urine Bilirubin (NEGATIVE) Urine Urobilinogen (NORMAL) E.U./dL Ur Leukocyte Esterase (NEGATIVE) Urine RBC (0-5) /HPF Urine WBC (0-3) /HPF Ur Squamous Epith Cells (<= Few) Urine Bacteria (None Seen) /HPF Urine Mucus Urine Culture Comments Nasal Adenovirus (PCR) NOT DETECTED Nasal B. parapertussis DNA (PCR) NOT DETECTED Nasal Coronavir 229E PCR NOT DETECTED Nasal Coronavir HKU1 PCR NOT DETECTED Nasal Coronavir NL63 PCR NOT DETECTED Nasal Coronavir OC43 PCR NOT DETECTED Nasal Enterovir/Rhinovir PCR NOT DETECTED Nasal Influenza B PCR NOT DETECTED Nasal Influenza A PCR NOT DETECTED Nasal Parainfluen 1 PCR NOT DETECTED Nasal Parainfluen 2 PCR NOT DETECTED Nasal Parainfluen 3 PCR NOT DETECTED Nasal Parainfluen 4 PCR NOT DETECTED Nasal RSV (PCR) NOT DETECTED Nasal B.pertussis DNA PCR NOT DETECTED Nasal C.pneumoniae (PCR) NOT DETECTED Omar Human Metapneumo PCR NOT DETECTED Nasal M.pneumoniae (PCR) NOT DETECTED Nasal SARS-CoV-2 (PCR) NOT DETECTED Stl C. diff Tox B Gene POSITIVE A* (NEGATIVE) Urine Opiates Screen (NEGATIVE) Ur Buprenorphine Scrn (NEGATIVE) Ur Oxycodone Screen (NEGATIVE) Urine Methadone Screen (NEGATIVE) Urine Fentanyl Screen (NEGATIVE) Ur Barbiturates Screen (NEGATIVE) Ur Tricyclics Screen (NEGATIVE) Ur Phencyclidine Scrn (NEGATIVE) Ur Amphetamine Screen (NEGATIVE) U Methamphetamines Scrn (NEGATIVE) U Benzodiazepines Scrn (NEGATIVE) Urine Cocaine Screen (NEGATIVE) U Cannabinoids Screen (NEGATIVE) Ur Drug Screen Comment Ethyl Alcohol mg/dL 04/09/25 04/09/25 04/09/25 Range/Units 17:00 15:48 14:32 WBC 12.3 H (4.8-10.8) x10^3/uL RBC 3.73 L (4.70-6.10) 10^6/uL Hgb 12.7 L (14.0-18.0) g/dL Hct 36.8 L (42.0-52.0) % MCV 98.7 H (80.0-94.0) fL MCH 34.0 H (27.0-31.0) pg MCHC 34.5 (32.0-36.0) g/dL RDW 12.3 (12.0-15.0) % Plt Count 267 (130-450) 10^3/uL MPV 8.2 (7.4-11.4) fL Neut # (Auto) 10.4 H (1.5-6.6) 10^3/uL Lymph # (Auto) 0.7 L (1.5-3.5) 10^3/uL Butler # (Auto) 1.1 H (0.0-1.0) 10^3/uL Eos # (Auto) 0.0 (0.0-0.7) 10^3/uL Baso # (Auto) 0.0 (0.0-0.1) 10^3/uL Absolute Nucleated RBC 0.00 x10^3/uL Nucleated RBC % 0.0 /100WBC Sodium 135 (135-145) mmol/L Potassium 3.8 (3.5-4.5) mmol/L Chloride 102 (101-111) mmol/L Carbon Dioxide 27 (21-32) mmol/L Anion Gap 6.0 (6-13) BUN 11 (6-20) mg/dL Creatinine 0.6 (0.6-1.3) mg/dL Estimated GFR (MDRD) 129 (>89) Glucose 125 H (74-104) mg/dL Calcium 8.6 (8.5-10.3) mg/dL Phosphorus 3.0 (2.5-5.0) mg/dL Magnesium 2.3 (1.7-2.3) mg/dL Total Bilirubin 1.0 (0.2-1.0) mg/dL AST 17 (10-42) IU/L ALT 13 (10-60) IU/L Alkaline Phosphatase 105 (42-121) IU/L Total Creatine Kinase 43 (30-223) IU/L Total Protein 6.1 L (6.4-8.9) g/dL Albumin 3.5 (3.2-5.5) g/dL Globulin 2.6 (2.1-4.2) g/dL Albumin/Globulin Ratio 1.3 (1.0-2.2) Lipase < 10 L (11-82) U/L Vitamin B12 185 (180-914) pg/mL Procalcitonin Immunoas (<0.5) ng/mL TSH 0.54 (0.34-5.60) uIU/mL Urine Color YELLOW Urine Clarity CLEAR (CLEAR) Urine pH 7.5 (5.0-7.5) PH Ur Specific [place] 1.010 (1.002-1.030) Urine Protein NEGATIVE (NEGATIVE) mg/dL Urine Glucose (UA) NEGATIVE (NEGATIVE) mg/dL Urine Ketones 15 H (NEGATIVE) mg/dL Urine Occult Blood NEGATIVE (NEGATIVE) Urine Nitrite NEGATIVE (NEGATIVE) Urine Bilirubin NEGATIVE (NEGATIVE) Urine Urobilinogen 0.2 (NORMAL) (NORMAL) E.U./dL Ur Leukocyte Esterase NEGATIVE (NEGATIVE) Urine RBC 0-5 (0-5) /HPF Urine WBC 0-3 (0-3) /HPF Ur Squamous Epith Cells RARE Squamous (<= Few) Urine Bacteria None Seen (None Seen) /HPF Urine Mucus Few Strands Urine Culture Comments NOT INDICATED Nasal Adenovirus (PCR) Nasal B. parapertussis DNA (PCR) Nasal Coronavir 229E PCR Nasal Coronavir HKU1 PCR Nasal Coronavir NL63 PCR Nasal Coronavir OC43 PCR Nasal Enterovir/Rhinovir PCR Nasal Influenza B PCR Nasal Influenza A PCR Nasal Parainfluen 1 PCR Nasal Parainfluen 2 PCR Nasal Parainfluen 3 PCR Nasal Parainfluen 4 PCR Nasal RSV (PCR) Nasal B.pertussis DNA PCR Nasal C.pneumoniae (PCR) Omar Human Metapneumo PCR Nasal M.pneumoniae (PCR) Nasal SARS-CoV-2 (PCR) Stl C. diff Tox B Gene (NEGATIVE) Urine Opiates Screen NEGATIVE (NEGATIVE) Ur Buprenorphine Scrn NEGATIVE (NEGATIVE) Ur Oxycodone Screen NEGATIVE (NEGATIVE) Urine Methadone Screen NEGATIVE (NEGATIVE) Urine Fentanyl Screen Negative (NEGATIVE) Ur Barbiturates Screen NEGATIVE (NEGATIVE) Ur Tricyclics Screen NEGATIVE (NEGATIVE) Ur Phencyclidine Scrn NEGATIVE (NEGATIVE) Ur Amphetamine Screen NEGATIVE (NEGATIVE) U Methamphetamines Scrn NEGATIVE (NEGATIVE) U Benzodiazepines Scrn NEGATIVE (NEGATIVE) Urine Cocaine Screen NEGATIVE (NEGATIVE) U Cannabinoids Screen NEGATIVE (NEGATIVE) Ur Drug Screen Comment CUTOFF CONC BELOW: Ethyl Alcohol < 10.0 mg/dL Diagnostic Imaging Diagnostic Imaging Results: positive Final report reviewed and Read independently Assessment/Plan Problem List (1) C. difficile colitis: (2) General weakness: (3) Acute dehydration: Impression: - The following plan is for the above three assessments: Abdominal pain, diarrhea, weakness, dehydration attributed to C. diff colitis. This is in the setting of underlying generalized weakness attributed to polymyalgia rheumatica and ankylosing spondilitis, as well as chronic alcohol use. - CT shows colitis. C. diff toxin positive. Initiating Vancomycin 125mg PO QID. Continue IVF rehydration. Encourage P.O. intake and oral hydration. - PT evaluation has been ordered. (4) Alteration in self-care ability: Impression: - Social work and pt's sister/DPOA working on these elements, to try to find long-term care solutions. This process still ongoing. Main plan for this visit is to provide supportive care, prevent any further or increasing illness, and find appropriate dispo. (5) Alcohol use: Impression: - Patient endorses 1-2 drinks of EtOH. Pt <8 on CIWA scale, but endorses daily etoh use of "a small glass of vodka" every day. Pt does have slight alcohol odor. No tremors noted on outstretched hands test, no diaphoresis, agitation, changes in sensorium, and only mild confusion (was off on the date by 3 days.) Otherwise presents very pleasantly, with no acute distress. -Monitor for any changes in clinical picture suggestive of acute withdrawal syndrome. -Supportive measures and oral thiamine 100 mg/day supplementation at this time, and combo iron/folate. (6) Skin abrasion: Impression: Pt presents with multiple superficial wounds in various stages of healing, refer to wound care photos. No wounds acutely septic appearing, but have given Tdap and started empiric Augmentin for the dog bite to the left hand. -Initial wound care tonight with wet/dry dressings and apparel fashion designer will be consulted tomorrow, appreciate their opinion. (7) Open wound of left index finger due to dog bite: Impression: - Does not appear actively infected at this time. Unclear Tdap vaccine history; administered today. - Prophylactic antibiotics with Augmentin for 3 days initiated (mild-moderate risk of worsening C.diff, will reassess as appropriate). (8) Cough: Impression: - Likely chronic cough in setting of tobacco use. - Pt has good RA sats, denies SOA, no increased WOB was appreciated, and no cyanosis, accessory muscle use, or other respiratory s/s present. CXR with mild atelectic changes noted. - Procalcitonin negative. Continue to monitor. Qualifiers: Cough type: unspecified Qualified Code(s): R05.9 - Cough, unspecified
--- NOTE | 2025-04-10 15:33 | PHARMACY PROGRESS NOTE ---
Best Possible Medication History Admit Date and Time: 04/09/25 1644 Home Medications Medication Instructions Recorded Confirmed Type simvastatin 40 mg tablet 40 mg PO QPM 01/12/16 History alendronate 70 mg tablet 70 mg PO QWEEK 02/09/2412/26 History alfuzosin 10 mg tablet,extended 10 mg PO QDAY 02/09/24 04/10/25 History release 24 hr hydrochlorothiazide 12.5 mg tablet 12.5 mg PO QAM 12/2504/10/25 History lisinopril 30 mg tablet 30 mg PO QDAY 02/09/2404/10 History ascorbic acid (vitamin C) 500 mg 500 mg PO DAILY 04/1004/10/25 History tablet cholecalciferol (vitamin D3) 50 50 mcg PO DAILY 04/10/25 History mcg (2,000 unit) capsule coenzyme Q10 100 mg chewable 100 mg PO DAILY 04/10/25 04/10/25 History tablet (Chew Q) multivitamin 1 tab PO DAILY 04/10/2512/26 History omega 3 350 mg-dha 235 mg-epa 90 1 cap PO DAILY 04/10/25 History mg-fish oil 597 mg capsule,delay rel ([place]-3) Processed by: Pharmacy Medications reviewed in ED?: No Medication History completed: Yes Patient Interview: Completed Secondary Source(s): Physician records [facility] Statement: As the person ultimately responsible for medication therapy, providers are able to order a medication from an existing home medication list in [facility] via the "Reconcile Routine" prior to Confirmation of that medication by patient support partner. Such practice is discouraged except when the physician, in their clinical judgment, deems that a medical need exists for a medication without regard to previous use.
--- NOTE | 2025-04-10 16:55 | PT Plan of Care ---
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/09/25 MEDICAL/SURGICAL HISTORY Medical History (Updated 04/10/25 @ 15:08 by Rowdy Wen MD) Headache, unspecified Abrasion, right lower leg, initial encounter Cough (11/29/18) Hypokalemia (12/30/21) Hyponatremia (04/14/23) Microcytic anemia (12/30/21) Macrocytosis (09/10/21) Macrocytic anemia (09/05/23) Surgical History Fusion of spine of cervical region Pacemaker (08/30/21) BALANCE/FUNCTIONAL RESULTS Sitting Balance: Good Standing Balance: Fair Tinetti Composite Score (Balance + Gait): 26 Tinetti Assessment Interpretation: Low Fall Risk ASSESSMENT Assessment: The pt is an 80 y/o M who arrived to the ED on 04/09/25 after being found down in human and dog waste, he was hospitalized with colitis and C-diff and has multiple abrasions and bruises of various stages of healing. PMH includes ankylosing spondylitis, C1 surgical procedure, polymyalgia rheumatica, pacemaker, CAD, PVD. Please see chart for complete medical hx. The pt was received resting comfortably supine in bed and presented today with mildly decreased B UE and LE strength, decreased activity tolerance, intact B LE sensation, and fair/good standing balance. Throughout this assessment he demo'd good safety awareness as he did not require any physical assist or safety cues during any transfers, three were no noted LOB episodes during gait assessment, and he declined trialing gait without any AD as he felt he was too unsteady to perform this safely. At this time recommend continued skilled PT intervention while in the acute setting and DC home with services for further rehab to address the mild LE strength deficits and standing balance impairments once pt medically stable. This plan was discussed with the pt and he was in agreement with this. At the end of the session the pt was sitting up in a chair with call light in reach and all needs met. RN, ELECTRICAL INSTALLER, and all updated on pt's status and DC rec. GOALS Improve supine to sit to:: Independent Improve sit to stand to:: Modified Independent Improve pivot transfer ability to:: Modified Independent Improve sit to supine to:: Independent Improve gait ability to:: Ind Advance Assistive Device to:: Front Wheeled Walker Increase distance walked to (in feet):: 100 PLAN Frequency: 1-2x/day Duration: Until goals are met DISCHARGE RECOMMENDATIONS Discharge Location: Previous Living Situation Support/Services Needed: Home Health P.T. DC Equipment Recommended: Front wheeled walker Transport Needs at Discharge: Personal vehicle
[2025-04-11 03:09] LABS: ADENOVIRUS F 40/41 Not Detected (Not Detected); ASTROVIRUS Not Detected (Not Detected); C DIFFICILE TOXIN A/B Detected (Not Detected); CAMPYLOBACTER Not Detected (Not Detected); CRYPTOSPORIDIUM Not Detected (Not Detected); CYCLOSPORA CAYETANENSIS Not Detected (Not Detected); ENTAMOEBA HISTOLYTICA Not Detected (Not Detected); ENTEROAGGREGATIVE E COLI Not Detected (Not Detected); ENTEROPATHOGENIC E COLI Not Detected (Not Detected); ENTEROTOXIGENIC E COLI Not Detected (Not Detected); GIARDIA LAMBLIA Not Detected (Not Detected); NOROVIRUS GI/GII Not Detected (Not Detected); PLESIOMONAS SHIGELLOIDES Not Detected (Not Detected); ROTAVIRUS A Not Detected (Not Detected); SALMONELLA Not Detected (Not Detected); SAPOVIRUS Not Detected (Not Detected); SHIGA-TOXIN-PRODUCING E COLI Not Detected (Not Detected); SHIGELLA/ENTEROINVASIVE E COLI Not Detected (Not Detected); VIBRIO Not Detected (Not Detected); VIBRIO CHOLERAE Not Detected (Not Detected); YERSINIA ENTEROCOLITICA Not Detected (Not Detected)
[2025-04-11 05:00] LABS: HCT - HEMATOCRIT 33.5 % (42.0-52.0); HGB - HEMOGLOBIN 11.4 g/dL (14.0-18.0); MEAN PLATELET VOLUME 8.6 fL (7.4-11.4); PLT - PLATELET COUNT 268.0 10^3/uL (130-450); RED CELL DISTRIBUTION WIDTH 12.3 % (12.0-15.0)
[2025-04-11 05:14] LABS: BUN - BLOOD UREA NITROGEN 8.0 mg/dL (6-20); CARBON DIOXIDE - CO2 26.0 mmol/L (21-32); CREATININE 0.6 mg/dL (0.6-1.3); GFR - MDRD 129.0 (>89)
--- NOTE | 2025-04-11 07:36 | PROVIDER PROGRESS NOTE ---
Current Medications Current Medications Current Medications: Current Medications Generic Name Dose Route Start Last Admin Trade Name Freq PRN Reason Stop Dose Admin Acetaminophen 650 mg 04/09/25 18:56 Acetaminophen 325 Mg Tablet PO Q4HR PRN Pain 1 to 4, or Fever Amoxicillin/Clavulanate Potassium 1 tab 04/10/25 09:00 04/10/25 20:56 Amox/Clav 875 Mg/125 Mg Tablet PO 04/13/25 08:59 1 tab BID CHRISSIE Administration Enoxaparin Sodium 40 mg 04/10/25 09:00 04/10/25 08:17 Enoxaparin 40 Mg/0.4 Ml Syringe SUBQ 40 mg DAILY CHRISSIE Administration Lisinopril 40 mg 04/09/25 18:58 04/10/25 08:17 Lisinopril 20 Mg Tablet PO 40 mg DAILY CHRISSIE Administration Ondansetron HCl 4 mg 04/09/25 18:56 Ondansetron Odt 4 Mg Tablet TL Q6HR PRN Nausea / Vomiting Ondansetron HCl 4 mg 04/09/25 18:56 Ondansetron 4 Mg/2 Ml Vial IVP Q6HR PRN Nausea / Vomiting Multivit/Folic Acid/Iron 1 tab 04/10/25 08:00 04/10/25 08:17 Vitamin Tablet PO 1 tab DAILYWM CHRISSIE Administration Sodium Chloride 10 ml 04/09/25 18:56 04/11/25 01:30 Sodium Chloride Flush 0.9% 10 Ml Syringe IVP 10 ml 0100,0900,1700 CHRISSIE Administration Sodium Chloride 10 ml 04/09/25 18:56 Sodium Chloride Flush 0.9% 10 Ml Syringe IVP PRN PRN NEEDED PER PROVIDER ORDERS Thiamine HCl 100 mg 04/10/25 09:00 04/10/25 08:17 Thiamine 100 Mg Tablet PO 100 mg DAILY CHRISSIE Administration Vancomycin HCl 125 mg 04/09/25 23:00 04/10/25 20:56 Vancomycin 125 Mg Capsule PO 125 mg QID CHRISSIE Administration Objective Vital Signs/Intake & Output Vital Signs: Vital Signs x48h Temp Pulse Resp BP Pulse Ox 04/11/25 04:30 97.7 F 85 16 158/85 H 96 04/11/25 00:00 97.9 F 75 18 126/60 96 Intake & Output: Intake & Output 04/08/25 04/09/25 04/10/2525 23:59 23:59 23:59 23:59 Intake Total 1200 / 1200 2931 / 2931 Output Total 400 / 400 915 / 915 375 / 375 Balance 800 / 800 2015 -375 / -375 Weight (kg) 80 kg Lab Results 04/11/25 04:35 04/11/25 04:35 Other Labs: Lab Results x24hrs 04/11/25 04/09/25 Range/Units 04:35 20:21 WBC 8.0 (4.8-10.8) x10^3/uL RBC 3.34 L (4.70-6.10) 10^6/uL Hgb 11.4 L (14.0-18.0) g/dL Hct 33.5 L (42.0-52.0) % MCV 100.3 H (80.0-94.0) fL MCH 34.1 H (27.0-31.0) pg MCHC 34.0 (32.0-36.0) g/dL RDW 12.3 (12.0-15.0) % Plt Count 268 (130-450) 10^3/uL MPV 8.6 (7.4-11.4) fL Sodium 135 (135-145) mmol/L Potassium 3.7 (3.5-4.5) mmol/L Chloride 103 (101-111) mmol/L Carbon Dioxide 26 (21-32) mmol/L Anion Gap 6.0 (6-13) BUN 8 (6-20) mg/dL Creatinine 0.6 (0.6-1.3) mg/dL Estimated GFR (MDRD) 129 (>89) Glucose 102 (74-104) mg/dL Calcium 8.5 (8.5-10.3) mg/dL Magnesium 2.1 (1.7-2.3) mg/dL Stl C. cayetanensis PCR Not Detected (Not Detected) Stool Rotavirus A PCR Not Detected (Not Detected) Stl Adenov F 40/41 PCR Not Detected (Not Detected) Stool Astrovirus (PCR) Not Detected (Not Detected) Stool Campylobacter PCR Not Detected (Not Detected) Stl C. diff Tox A/B PCR Detected A (Not Detected) Stool Cryptosporidium PCR Not Detected (Not Detected) Stl Sh Tox Pr E STEC PCR Not Detected (Not Detected) Stool E coli O157 PCR Not applicable (Not Detected) Stl Enterotoxigenic E PCR Not Detected (Not Detected) Stool EPEC (PCR) Not Detected (Not Detected) Stl E. histolytica PCR Not Detected (Not Detected) Stool Giardia Lamblia PCR Not Detected (Not Detected) Stl P. shigelloides PCR Not Detected (Not Detected) Stool Salmonella PCR Not Detected (Not Detected) Stool Sapovirus (PCR) Not Detected (Not Detected) Stl Shigella/EIEC PCR Not Detected (Not Detected) St Y.enterocolitica PCR Not Detected (Not Detected) Stool Vibrio (PCR) Not Detected (Not Detected) Stl Vibrio cholerae PCR Not Detected (Not Detected) Stl Enteroaggr Ecoli PCR Not Detected (Not Detected) Stl Norovirus GI/GII PCR Not Detected (Not Detected) Assessment/Plan Problem List (1) C. difficile colitis: (2) General weakness: (3) Acute dehydration: (4) Alteration in self-care ability: (5) Alcohol use: (6) Skin abrasion: (7) Open wound of left index finger due to dog bite: (8) Cough: Qualifiers: Cough type: unspecified Qualified Code(s): R05.9 - Cough, unspecified
--- NOTE | 2025-04-11 09:52 | PROVIDER PROGRESS NOTE ---
Subjective Prog Note Date Prog Note Date: 04/11/25 Prog Note Time: 09:52 Subjective Pt reports feeling: Improved and No change Subjective: Pt reports ongoing weakness still continuing, and dizziness with positional changes. PT relates his stools are becoming more solid, and he feels comfortable ambulating with a walker for support after yesterday's PT consult. Pt denies any sylwia syncope, NV, CP, SOA, productive cough, abd pain, or any other new or developing symptoms. Current Medications Current Medications Current Medications: Current Medications Generic Name Dose Route Start Last Admin Trade Name Freq PRN Reason Stop Dose Admin Acetaminophen 650 mg 04/09/25 18:56 Acetaminophen 325 Mg Tablet PO Q4HR PRN Pain 1 to 4, or Fever Amoxicillin/Clavulanate Potassium 1 tab 04/10/25 09:00 04/11/25 08:28 Amox/Clav 875 Mg/125 Mg Tablet PO 04/13/25 08:59 1 tab BID CHRISSIE Administration Bacitracin 1 packet 04/11/25 08:36 Bacitracin Zinc Oint 1 Packet TOP PRN PRN Skin Care Enoxaparin Sodium 40 mg 04/10/25 09:00 04/11/25 08:28 Enoxaparin 40 Mg/0.4 Ml Syringe SUBQ 40 mg DAILY CHRISSIE Administration Lisinopril 40 mg 04/09/25 18:58 04/11/25 08:28 Lisinopril 20 Mg Tablet PO 40 mg DAILY CHRISSIE Administration Ondansetron HCl 4 mg 04/09/25 18:56 Ondansetron Odt 4 Mg Tablet TL Q6HR PRN Nausea / Vomiting Ondansetron HCl 4 mg 04/09/25 18:56 Ondansetron 4 Mg/2 Ml Vial IVP Q6HR PRN Nausea / Vomiting Multivit/Folic Acid/Iron 1 tab 04/10/25 08:00 04/11/25 08:28 Vitamin Tablet PO 1 tab DAILYWM CHRISSIE Administration Sodium Chloride 10 ml 04/09/25 18:56 04/11/25 08:28 Sodium Chloride Flush 0.9% 10 Ml Syringe IVP 10 ml 0100,0900,1700 CHRISSIE Administration Sodium Chloride 10 ml 04/09/25 18:56 Sodium Chloride Flush 0.9% 10 Ml Syringe IVP PRN PRN NEEDED PER PROVIDER ORDERS Thiamine HCl 100 mg 04/10/25 09:00 04/11/25 08:28 Thiamine 100 Mg Tablet PO 100 mg DAILY CHRISSIE Administration Vancomycin HCl 125 mg 04/09/25 23:00 04/11/25 08:28 Vancomycin 125 Mg Capsule PO 125 mg QID CHRISSIE Administration Objective Vital Signs/Intake & Output Reviewed Vital Signs: Yes Vital Signs: Vital Signs x48h Temp Pulse Resp BP Pulse Ox 04/11/25 07:55 36.7 C 75 18 154/92 H 98 04/11/25 04:30 36.5 C 85 16 158/85 H 96 Intake & Output: Intake & Output 04/08/25 04/09/25 04/10/25 04/11/25 23:59 23:59 23:59 23:59 Intake Total 1200 / 1200 2931 / 2931 1216 / 1216 Output Total 400 / 400 915 / 915 375 / 375 Balance 800 / 800 2015 841 / 841 Weight (kg) 80 kg Objective General Appearance: positive No acute distress and Alert Eyes Bilateral: positive Normal inspection Neck: positive Nml inspection Respiratory: positive Chest non-tender, No respiratory distress and Breath sounds nml Cardiovascular: positive Regular rate & rhythm Abdomen: positive Non-tender and Nml bowel sounds Skin: positive Color nml, Warm, Dry and Other (Pt skin wounds are still in various stages of healing. Nursing staff related a dressing change for the dog bite on the left hand. Other abrasions are properly granulating or otherwise appear reassuring, with no obvious purulence or toxic appearance. ) Extremities: positive Non-tender and No pedal edema Neurologic/Psychiatric: positive Oriented x3 Lab Results 04/11/25 04:35 04/11/25 04:35 Other Labs: Lab Results x24hrs 04/11/25 04/09/25 Range/Units 04:35 20:21 WBC 8.0 (4.8-10.8) x10^3/uL RBC 3.34 L (4.70-6.10) 10^6/uL Hgb 11.4 L (14.0-18.0) g/dL Hct 33.5 L (42.0-52.0) % MCV 100.3 H (80.0-94.0) fL MCH 34.1 H (27.0-31.0) pg MCHC 34.0 (32.0-36.0) g/dL RDW 12.3 (12.0-15.0) % Plt Count 268 (130-450) 10^3/uL MPV 8.6 (7.4-11.4) fL Sodium 135 (135-145) mmol/L Potassium 3.7 (3.5-4.5) mmol/L Chloride 103 (101-111) mmol/L Carbon Dioxide 26 (21-32) mmol/L Anion Gap 6.0 (6-13) BUN 8 (6-20) mg/dL Creatinine 0.6 (0.6-1.3) mg/dL Estimated GFR (MDRD) 129 (>89) Glucose 102 (74-104) mg/dL Calcium 8.5 (8.5-10.3) mg/dL Magnesium 2.1 (1.7-2.3) mg/dL Stl C. cayetanensis PCR Not Detected (Not Detected) Stool Rotavirus A PCR Not Detected (Not Detected) Stl Adenov F 40/41 PCR Not Detected (Not Detected) Stool Astrovirus (PCR) Not Detected (Not Detected) Stool Campylobacter PCR Not Detected (Not Detected) Stl C. diff Tox A/B PCR Detected A (Not Detected) Stool Cryptosporidium PCR Not Detected (Not Detected) Stl Sh Tox Pr E STEC PCR Not Detected (Not Detected) Stool E coli O157 PCR Not applicable (Not Detected) Stl Enterotoxigenic E PCR Not Detected (Not Detected) Stool EPEC (PCR) Not Detected (Not Detected) Stl E. histolytica PCR Not Detected (Not Detected) Stool Giardia Lamblia PCR Not Detected (Not Detected) Stl P. shigelloides PCR Not Detected (Not Detected) Stool Salmonella PCR Not Detected (Not Detected) Stool Sapovirus (PCR) Not Detected (Not Detected) Stl Shigella/EIEC PCR Not Detected (Not Detected) St Y.enterocolitica PCR Not Detected (Not Detected) Stool Vibrio (PCR) Not Detected (Not Detected) Stl Vibrio cholerae PCR Not Detected (Not Detected) Stl Enteroaggr Ecoli PCR Not Detected (Not Detected) Stl Norovirus GI/GII PCR Not Detected (Not Detected) Diagnostic Imaging Diagnostic Imaging Results: positive Final report reviewed and Read independently Assessment/Plan Problem List (1) C. difficile colitis: (2) General weakness: (3) Acute dehydration: Impression: - The following plan is for the above three assessments: Abdominal pain, diarrhea, weakness, dehydration attributed to C. diff colitis. This is in the setting of underlying generalized weakness attributed to polymyalgia rheumatica and ankylosing spondilitis, as well as chronic alcohol use. - CT shows colitis. C. diff toxin positive. Initiating Vancomycin 125mg PO QID. EOT is 04/19. Encourage P.O. food intake and oral hydration. IVF stopped. - PT evaluation was performed yesterday, they recommend Home with Home Health. - Patient is medically cleared for discharge, awaiting safe discharge. JOHN is working on likely respite care and then will move home with home health. (4) Alteration in self-care ability: Impression: - Patient with progressive decline over the last few years. Likely due to continued alcohol use and possible onset of dementia, although he has not been formally diagnosed with this yet. - Will need close outpatient neurology follow up. - JOHN is working on likely respite care and then will move home with home health. His sister is his DPOA and is very involved in his care. Continue to provide supportive care, prevent any further or increasing illness, and find appropriate dispo. (5) Alcohol use: Impression: - Patient endorses 1-2 drinks of EtOH. Pt continues to score minimally on CIWA scale, but endorses daily etoh use of "a small glass of vodka" every day. - No signs of active withdrawal: No tremors noted on outstretched hands test, no diaphoresis, agitation, changes in sensorium, and only mild confusion (was off on the date by 3 days.) Otherwise presents very pleasantly, with no acute distress. - Supportive measures and oral thiamine 100 mg/day supplementation at this time, and combo iron/folate. (6) Skin abrasion: Impression: - Pt presents with multiple superficial wounds in various stages of healing, refer to wound care photos. - No wounds acutely septic appearing, but have given Tdap prophylaxis, and continuing empiric Augmentin for the dog bite to the left hand. - Initial wound care with wet/dry dressings, nursing staff reports dressing change this AM. (7) Open wound of left index finger due to dog bite: Impression: - Does not appear actively infected at this time. Unclear Tdap vaccine history; administered 04/10. - Prophylactic antibiotics with Augmentin for 3 days initiated (mild-moderate risk of worsening C.diff, will reassess as appropriate), EOT 12/10. Has not been worsening bowel movements. (8) Cough: Impression: - Likely chronic cough in setting of tobacco use. - Pt has good RA sats, denies SOA, no increased WOB was appreciated, and no cyanosis, accessory muscle use, or other respiratory s/s present. CXR with mild atelectic changes noted. - Procalcitonin negative and no consolidative findings on initial CXR. Continue to monitor. Qualifiers: Cough type: unspecified Qualified Code(s): R05.9 - Cough, unspecified (9) PTSD (post-traumatic stress disorder): Impression: - Likely would benefit from outpatient psychiatric follow up. Although patient does not express any mood disturbances, thoughts of harming himself, etc, his mental health may be contributing in part to his overall self-care deficit. (10) Polymyalgia rheumatica: Impression: - Not currently on any medications. Not in active flare up at this time. (11) Hypertension: Impression: - Continue lisinopril. Hold HCTZ, likely indefinitely, due to volume loss with ongoing diarrhea. Qualifiers: Hypertension type: primary hypertension Qualified Code(s): I10 - Essential (primary) hypertension
[2025-04-11] MEDS ORDERED: MULTIVITAMIN TABLET PO SCH (12:00)
[2025-04-11] MEDS: OMEGA-3 ACID ETHYL ESTERS 1 GM CAPSULE PO SCH (12:04)
[2025-04-11] MEDS: CHOLECALCIFEROL 25 MCG TABLET PO SCH (12:04)
[2025-04-11] MEDS: BACITRACIN ZINC OINT 1 PACKET TOP PRN (12:04)
[2025-04-11] MEDS: TAMSULOSIN 0.4 MG CAPSULE PO SCH (12:07)
--- NOTE | 2025-04-11 13:20 | Discharge Summary ---
"Discharge Summary Admit Date: 04/09/25 Discharge Date: 04/14/25 Discharging Provider: Dr. Garrett Givens DO Primary Care Provider: Christine Olson Code Status: Attempt Resuscitation DIAGNOSES Admission Diagnoses: Acute Dehydration, Colitis, General Weakness, alteration in self care ability, Alcohol use, skin abrasion, dog bite Discharge Diagnoses with Status of Each Condition: ## Acute dehydration ## C diff Colitis ## General Weakness Pt presented with transient abdominal pain, diarrhea, weakness, and dehydration with C diff positivity. This is in the setting of underlying generalized weakness attributed to polymyalgia rheumatica and ankylosing spondylitis, as well as chronic alcohol use. Initiated Vancomycin for C diff tx, EOT 04/19, and IVF and oral food and liquid intake. Pt still complains of some weakness, but likely represents a return to baseline. Pt relates he feels subjectively improved, and vitals have remained stable with no fevering or s/s of worsening infection. Pt cleared for outpt rehab via walker by PT. He is [facility] care while his house is put back in order. ## Alteration in self care ability Patient with progressive decline over the last few years. Likely due to continued alcohol use and possible onset of dementia, although he has not been formally diagnosed with this yet. Will need close outpatient neurology follow up. SW has been working on likely respite care and then will move home with home health. His sister is his DPOA and is very involved in his care. Continue to provide supportive care, prevent any further or increasing illness. ## Alcohol use Pt and pt's sister report moderate alcohol use by pt; pt CIWA score remained minimal, and pt was monitored closely for any signs of withdrawal. No medical intervention needed to prevent acute withdrawal, but alcohol cessation resources provided, and pt treated with oral thiamine and folate supplementation during course of stay. ## Skin abrasion ## Dog bite Discharge status pertinent to the above two conditions. Pt presented with multiple small wounds in various stages of healing without septic appearance. Wound care applied to both, and pt was treated prophylactically/empirically with Tdap on 04/10 and Augmentin on 04/10. Wound dressings have been changed according to standards of care. No toxic or septic appearing wounds appreciable at time of discharge. HPI History of Present Illness: Patient is a 80-year-old male with a history of polymyalgia rheumatica, ankylosing spondylitis, PTSD, C1 vertebral fracture s/p ring surgery, pacemaker placement (unclear cardiac history) who presents initially due to failure to thrive. He was found at home covered in human feces and dog feces. He had also complained of some abdominal pain, which was relieved after a large bowel movement. He states at home, he alternates between constipation and diarrhea. Most recently, he was feeling constipated. He had an episode where he was bearing down on the toilet and he passed out which is where he attributes most of his scrapes and bruises from. He has been having 1-2 bowel movements a day, and he describes them as liquidy. He denies any fevers, chills, shortness of breath. He does have a cough which she states is chronic. Patient has many wounds, some that are most concerning are his left knee, his left toes, his right knee, and his left index finger where his dog bit him (there is an urgent care note outlining this incident well from 04/08 where he was supposed to go to [facility] ER for x-rays and then return for further treatment - he did not return), Most of these are healing appropriately with granulation tissue, but require diligent wound care, and regular wound care dressings. Currently, he is alert and oriented x 3, but does have difficulty with recall, especially short- term. Outpatient records have been noted. He has been dealing with diarrhea for about a year and a half, tested C diff positive during stay. Unclear when his last colonoscopy was or if he is had a biopsy done. He was previously being treated as IBS in the outpatient and was taking Imodium as needed, although he states he has been taking this for a few weeks. Patient's sister, Elsa Bryan, provided a letter on his behalf outlining her concerns. Firstly, he describes his inability to walk andshe states that he is very unsteady, and attributes it to possible progression of his autoimmune diseases. He has a cane and walker at home, but does not use it. He has difficulty getting up from a chair. She also expresses concern his alcoholism; she states that he has had 3 DUIs, and he has been driving when he can barely turn his head. Mostly, she is worried about his living conditions. She describes his house as having human feces around the bathroom and dog feces and urine on the floors. He has garbage, papers, bottles and broken glass on the floors as well. There is no place to sit down because there is so much stuff in his house, and she is worried about hoarding being a problem. He is unable to take garbage bags to the trash can for garbage pick up worker so has been throwing them to his lower level, where there may be a rodent problem. He has not been allowing friends and family to visit him because he is embarrassed about the condition of his house. She aligned set on 02/23 herself and 3 of her brothers, as well as some of his close friends met at his home to talk about his living conditions. Their initial plan was to move into assisted living for a few months while they had the house cleaned; he refuses proposal. On 02/27, APS market investigator visited him. He agreed to clean everything up and market investigator was planning on returning in 2 weeks. Many loved ones of his have reported him to APS. During his stay, we have treated his medical complaints and seek to discharge him to the safest option for rehabilitation and allow time for his home sanitary concerns to be addressed. CONSULTS | PROCEDURES Consultations: Radiology, Social Work, PT, educational therapy teacher HOSPITAL COURSE Hospital Course: Pt presented with transient abdominal pain, diarrhea, weakness, dehydration attributed to C. diff colitis. This is in the setting of underlying generalized weakness attributed to polymyalgia rheumatica and ankylosing spondilitis, as well as chronic alcohol use. CT showed colitis. C. diff toxin positive. Initiated Vancomycin 125mg PO QID. EOT is 04/19. Encouraged P.O. food intake and oral hydration. IVF was initiated on admission but has now been discontinued due to satisfactory oral intake. PT evaluation was performed yesterday; pt able to ambulate appropriately via walker, they recommend outpt rehab. Due to baseline alcohol use, pt maintained on oral thiamine and folate supplementation during his admission. Continue at discharge Pt also presented with a number of superficial wounds in various states of healing, including a dog bite to the left hand/finger, and this was treated prophylactically/empirically with Tdap/Augmentin. Wounds were dressed with wet/dry dressings and changed per standard of care. No toxic or septic appearing wounds appreciable at time of discharge. Pt presented with dry chronic cough, presumed chronic and related to his tobacco use. No respiratory infective picture apparent during stay, although some incidental LLL atelectasis was appreciated on imaging. RA sats have been >95 and lung sounds have been without adventition during stay. Pt sister relates pt has longstanding hx of PTSD, recommend outpt psych/neuro follow up for this and potential developing dementia picture. Pt history indicates history of polymyalgia rheumatica, but no acute flare ups appreciated during care. Pt history includes Lisinopril and HCTZ; we are withholding HCTZ due to recent volume loss due to diarrhea. Patient was seen and evaluated on day of discharge. He is still stable after several days. He is discharging to [facility] for respite care while his house is put back in order. He will complete a 10-day course of oral vancomycin for his CDI. His diarrhea has mostly resolved, but he has occasional loose stool still. EOT 04/19. ALLERGIES Allergies Allergy/AdvReac Type Severity Reaction Status Date / Time No Known Drug Allergies Allergy Verified 04/08/25 13:06 MEDICATIONS Ambulatory Orders Medication Instructions Recorded Confirmed simvastatin 40 mg tablet 40 mg PO QPM 01/12/16 alendronate 70 mg tablet 70 mg PO QWEEK 02/09/2412/26 alfuzosin 10 mg tablet,extended 10 mg PO QDAY 02/09/24 04/10/25 release 24 hr lisinopril 30 mg tablet 30 mg PO QDAY 02/09/2404/10 ascorbic acid (vitamin C) 500 mg 500 mg PO DAILY 04/1004/10/25 tablet cholecalciferol (vitamin D3) 50 50 mcg PO DAILY 04/10/25 mcg (2,000 unit) capsule coenzyme Q10 100 mg chewable 100 mg PO DAILY 04/10/25 04/10/25 tablet (Chew Q) multivitamin 1 tab PO DAILY 04/10/2512/26 omega 3 350 mg-dha 235 mg-epa 90 1 cap PO DAILY 04/10/25 mg-fish oil 597 mg capsule,delay rel ([place]-3) bacitracin 500 unit/gram topical 1 applic topical PRN PRN Skin Care 04/13/25 packet #144 ea cyanocobalamin (vitamin B-12) 500 500 mcg PO DAILY #30 tabs 04/13/25 mcg tablet vit,calcium 27-ferrous 1 tab PO DAILYWM #30 t abs 04/13/25 fum 60 mg iron-folic acid 1 mg tablet (Trinatal Rx 1) thiamine mononitrate (vit B1) 100 100 mg PO DAILY #30 tabs 04/13/25 mg tablet (Vitamin B-1 (mononitrate)) vancomycin 125 mg capsule 125 mg PO QID #21 caps 04/13 PHYSICAL EXAM AT DISCHARGE Vital Signs: Vital Signs x48h Temp Pulse Resp BP Pulse Ox 04/14/25 08:00 37.2 C 75 20 148/75 H 96 04/14/25 04:42 36.4 C L 81 18 157/91 H 94 General Appearance: positive No acute distress and Alert Eyes Bilateral: positive Normal inspection Neck: positive Nml inspection Respiratory: positive Chest non-tender, No respiratory distress and Breath sounds nml Cardiovascular: positive Regular rate & rhythm Peripheral Pulses: positive 2+ Abdomen: positive Non-tender, Nml bowel sounds and No distention Skin: positive Color nml, Warm and Dry Extremities: positive Non-tender Neurologic/Psychiatric: positive Oriented x3 LABS 04/11/25 04:35 04/11/25 04:35 DIAGNOSTIC IMAGING Diagnostic Imaging Results: Final report reviewed and Read independently FOLLOW UP Follow Up: Follow up with PCP, cardiology, rheumatology, psychiatry, and home health (ordered) TIME SPENT Time Spent in Discharge (Minutes): 38 Discharge Plan Discharge Patient Disposition: 06 Home Health Service Condition: Stable Medically Cleared Date:: 04/10/25 Medically Cleared Comments:: Discharging to [facility] for respite care with home health Prescriptions: New bacitracin 500 unit/gram Packet 1 applic topical PRN PRN (Reason: Skin Care) Qty: 144 0RF vancomycin 125 mg Capsule 125 mg PO QID Qty: 21 0RF cyanocobalamin (vitamin B-12) 500 mcg Tablet 500 mcg PO DAILY Qty: 30 0RF Trinatal Rx 1 60 mg iron-1 mg Tablet 1 tab PO DAILYWM Qty: 30 0RF thiamine mononitrate (vit B1) [Vitamin B-1 (mononitrate)] 100 mg Tablet 100 mg PO DAILY Qty: 30 0RF Continued simvastatin 40 MG tablet 40 mg PO QPM ascorbic acid (vitamin C) 500 mg tablet 500 mg PO DAILY cholecalciferol (vitamin D3) 50 mcg (2,000 unit) capsule 50 mcg PO DAILY Chew Q 100 mg tablet,chewable 100 mg PO DAILY [place]-3 350 mg-235 mg- 90 mg-597 mg capsule,delayed release(DR/EC) 1 cap PO DAILY multivitamin Tablet 1 tab PO DAILY lisinopril 30 mg tablet 30 mg PO QDAY alfuzosin 10 mg tablet extended release 24 hr 10 mg PO QDAY Rx Instructions: administer after the same meal each day alendronate 70 mg tablet 70 mg PO QWEEK Rx Instructions: Take one tablet by mouth once a week. Take with a full glass of water, Need to stay upright and avoid food for at least 30 minutes after taking this medication. Discontinued hydrochlorothiazide 12.5 mg tablet 12.5 mg PO QAM bacitracin zinc 500 unit/gram ointment in packet 6 applic topical ONCE Qty: 6 0RF Activity Restrictions/Additional Instructions: You were admitted to the hospital with concerns for progressive weakness at home. You are found with have C. difficile colitis, an infection in your colon which was causing diarrhea. You have been started on oral vancomycin which is guideline directed treatment for this. Please follow these instructions carefully to help you recover and prevent the infection from coming back. Your Medications * Take all prescribed antibiotics exactly as directed, even if you start feeling better. The most common medications are vancomycin or fidaxomicin, typically taken for 10 days. * Do not stop your antibiotics early, as this can cause the infection to return. * Avoid unnecessary antibiotics in the future, as they can trigger another C. diff infection. What to Expect Your diarrhea should improve within a few days of starting treatment. Most patients recover completely within 10 days. * Some cramping and mild diarrhea may continue for a short time after finishing antibiotics. * C. diff can come back in about 20-30% of patients, even after successful treatment. This is called recurrence and is not your fault. When to Seek Medical Attention Call your doctor or return to the emergency department if you experience: * Worsening diarrhea (more than 10 watery stools per day) * Severe abdominal pain or swelling * Fever over 101F (38.3C) * Blood in your stool * Signs of dehydration: dizziness, decreased urination, extreme thirst, or confusion Preventing Spread to Others C. diff spreads through spores that can live on surfaces. To protect others: * Wash your hands with soap and water frequently, especially after using the bathroom and before eating. Alcohol-based hand sanitizers do not kill C. diff spores. * Clean bathroom surfaces regularly with bleach-based cytotechnologist/histotechnologist. * Wash clothing and linens in hot water. * If you live with others, try to use a separate bathroom if possible until your diarrhea resolves. Diet and Lifestyle * Stay well-hydrated by drinking plenty of water and clear fluids. * Eat a regular diet as tolerated. There are no specific food restrictions. Medications to Discuss with Your Doctor Talk to your doctor about whether you need to continue acid-reducing medications (like omeprazole or pantoprazole), as these may increase your risk of C. diff returning. Inform all healthcare providers that you have had C. diff infection, especially if you need antibiotics in the future. Follow-Up Care Follow up with your primary care doctor within the next 2-4 weeks If you develop diarrhea again within the next few months, contact your doctor right away, as you may need different treatment. For patients with multiple recurrences, additional treatments such as fecal microbiota transplantation may be recommended. Diet: Regular Print Language: Guinean Follow-up Care: Christine Olson ARNP [Primary Care Provider, Family Practice] Vitals documented within 30 minutes of discharge?: Yes"
[2025-04-11] MEDS: ATORVASTATIN 10 MG TABLET PO SCH (21:16)
--- NOTE | 2025-04-12 07:36 | PROVIDER PROGRESS NOTE ---
Subjective Prog Note Date Prog Note Date: 04/12/25 Prog Note Time: 07:34 Subjective Subjective: NO acute events. No new labs No stool recorded overnight. Current Medications Current Medications Current Medications: Current Medications Generic Name Dose Route Start Last Admin Trade Name Freq PRN Reason Stop Dose Admin Acetaminophen 650 mg 04/09/25 18:56 Acetaminophen 325 Mg Tablet PO Q4HR PRN Pain 1 to 4, or Fever Amoxicillin/Clavulanate Potassium 1 tab 04/10/25 09:00 04/11/25 21:16 Amox/Clav 875 Mg/125 Mg Tablet PO 04/13/25 08:59 1 tab BID CHRISSIE Administration Ascorbic Acid 500 mg 04/12/25 09:00 Ascorbic Acid 500 Mg Tablet PO DAILY CHRISSIE Atorvastatin Calcium 20 mg 04/11/25 21:00 04/11/25 21:16 Atorvastatin 10 Mg Tablet PO 20 mg QPM CHRISSIE Administration Bacitracin 1 packet 04/11/25 08:36 04/11/25 12:04 Bacitracin Zinc Oint 1 Packet TOP 1 packet PRN PRN Administration Skin Care Cholecalciferol 50 mcg 04/11/25 12:00 04/11/25 12:04 Cholecalciferol 25 Mcg Tablet PO 50 mcg DAILY CHRISSIE Administration Enoxaparin Sodium 40 mg 04/10/25 09:00 04/11/25 08:28 Enoxaparin 40 Mg/0.4 Ml Syringe SUBQ 40 mg DAILY CHRISSIE Administration Lisinopril 40 mg 04/09/25 18:58 04/11/25 08:28 Lisinopril 20 Mg Tablet PO 40 mg DAILY CHRISSIE Administration [id number] Ethyl Esters 1 gm 04/11/25 12:00 04/11/25 12:04 [place]-3 Acid Ethyl Esters 1 Gm Capsule PO 1 gm DAILY CHRISSIE Administration Ondansetron HCl 4 mg 04/09/25 18:56 Ondansetron Odt 4 Mg Tablet TL Q6HR PRN Nausea / Vomiting Ondansetron HCl 4 mg 04/09/25 18:56 Ondansetron 4 Mg/2 Ml Vial IVP Q6HR PRN Nausea / Vomiting Multivit/Folic Acid/Iron 1 tab 04/10/25 08:00 04/11/25 08:28 Vitamin Tablet PO 1 tab DAILYWM CHRISSIE Administration Sodium Chloride 10 ml 04/09/25 18:56 04/12/25 00:02 Sodium Chloride Flush 0.9% 10 Ml Syringe IVP 10 ml 0100,0900,1700 CHRISSIE Administration Sodium Chloride 10 ml 04/09/25 18:56 Sodium Chloride Flush 0.9% 10 Ml Syringe IVP PRN PRN NEEDED PER PROVIDER ORDERS Tamsulosin HCl 0.4 mg 04/11/25 12:00 04/11/25 12:07 Tamsulosin 0.4 Mg Capsule PO 0.4 mg DAILY CHRISSIE Administration Thiamine HCl 100 mg 04/10/25 09:00 04/11/25 08:28 Thiamine 100 Mg Tablet PO 100 mg DAILY CHRISSIE Administration Vancomycin HCl 125 mg 04/09/25 23:00 04/11/25 21:16 Vancomycin 125 Mg Capsule PO 125 mg QID CHRISSIE Administration Objective Vital Signs/Intake & Output Vital Signs: Vital Signs x48h Temp Pulse Resp BP Pulse Ox 04/12/25 04:00 36.4 C L 85 16 143/81 H 94 04/12/25 00:00 36.5 C 83 16 147/87 H 96 Intake & Output: Intake & Output 04/09/25 04/10/25 04/11/25 04/12/25 23:59 23:59 23:59 23:59 Intake Total 1200 / 1200 2931 / 2931 2576 / 2576 200 / 200 Output Total 400 / 400 915 / 915 1395 / 1395 1000 / 1000 Balance 800 / 800 2015 1181 / 1181 -800 / -800 Weight (kg) 80 kg Lab Results 04/11/25 04:35 04/11/25 04:35 Assessment/Plan Problem List (1) C. difficile colitis: (2) General weakness: (3) Acute dehydration: (4) Alteration in self-care ability: (5) Alcohol use: (6) Skin abrasion: (7) Open wound of left index finger due to dog bite: (8) Cough: Qualifiers: Cough type: unspecified Qualified Code(s): R05.9 - Cough, unspecified (9) PTSD (post-traumatic stress disorder): (10) Polymyalgia rheumatica: (11) Hypertension: Qualifiers: Hypertension type: primary hypertension Qualified Code(s): I10 - Essential (primary) hypertension
[2025-04-12] MEDS: ASCORBIC ACID 500 MG TABLET PO SCH (08:53)
--- NOTE | 2025-04-12 10:58 | PROVIDER PROGRESS NOTE ---
<Statement entered by Garrett Givens, DO - 04/12/25 15:58> I was present with the TEA student on the hospitalist service. I personally verified the history of present illness and performed the physical examination and medical decision making. I have verified the students documentation for this encounter and agree with the plan of care below. In addition 80-year-old male with past medical history of PMR, ankylosing spondylitis, PTSD, C1 fracture s/p ring surgery, PPM in place presenting primarily for failure to thrive and uncontrollable diarrhea. He is found here to have C. difficile, and is improving on oral vancomycin. His stools are starting to form. He has had a progressive history of failure to thrive at home resulting in multiple APS investigations, the most recent of which was the end of February. His family is concerned about him. He has been seen by PT here and recommended for home with home health. - Continue daily wound changes - Continue vancomycin, EOT 04/19 - Completes Augmentin for dog bite 04/13, wound improving, full ROM of hand accounting for OA - Discontinue CIWA and orthostatics, these have been normal - Continue thiamine and multivitamin - Efforts are being made for the patient to go to respite care - If unsuccessful by 04/13, patient likely to discharge home with home health. - Home health referral placed I spent a total of 41 minutes in the care of this patient today. This time was spent reviewing labs, vital signs, imaging, interviewing and examining the patient, and discussing plan of care with them and their other care providers. Patient with an acute illness and systemic symptoms. Prescription management as below. [id number] Subjective Prog Note Date Prog Note Date: 04/12/25 Prog Note Time: 10:58 Subjective Pt reports feeling: Improved Subjective: Pt HPI is in preceding notes. Pt is in good spirits today and is subjectively feeling better. Pt reports more solid stools, less david weakness, some ongoing dizziness but ability to walk with walker and no acute changes with standing or moving, and had questions about the status of his discharge, and where would accept him with the C diff diagnosis. PA student related that Social Work was still working to find the safest and most cost-effective placement for him, and we would continue to monitor him medically while waiting for this process to finalize. Pt also related desire to d/c all his IV access tubing and potentially step down to a smaller bandage. Current Medications Current Medications Current Medications: Current Medications Generic Name Dose Route Start Last Admin Trade Name Freq PRN Reason Stop Dose Admin Acetaminophen 650 mg 04/09/25 18:56 Acetaminophen 325 Mg Tablet PO Q4HR PRN Pain 1 to 4, or Fever Amoxicillin/Clavulanate Potassium 1 tab 04/10/25 09:00 04/12/25 08:53 Amox/Clav 875 Mg/125 Mg Tablet PO 04/13/25 08:59 1 tab BID CHRISSIE Administration Ascorbic Acid 500 mg 04/12/25 09:00 04/12/25 08:53 Ascorbic Acid 500 Mg Tablet PO 500 mg DAILY CHRISSIE Administration Atorvastatin Calcium 20 mg 04/11/25 21:00 04/11/25 21:16 Atorvastatin 10 Mg Tablet PO 20 mg QPM CHRISSIE Administration Bacitracin 1 packet 04/11/25 08:36 04/11/25 12:04 Bacitracin Zinc Oint 1 Packet TOP 1 packet PRN PRN Administration Skin Care Cholecalciferol 50 mcg 04/11/25 12:00 04/12/25 08:53 Cholecalciferol 25 Mcg Tablet PO 50 mcg DAILY CHRISSIE Administration Enoxaparin Sodium 40 mg 04/10/25 09:00 04/12/25 08:53 Enoxaparin 40 Mg/0.4 Ml Syringe SUBQ 40 mg DAILY CHRISSIE Administration Lisinopril 40 mg 04/09/25 18:58 04/12/25 08:53 Lisinopril 20 Mg Tablet PO 40 mg DAILY CHRISSIE Administration [id number] Ethyl Esters 1 gm 04/11/25 12:00 04/12/25 08:53 [place]-3 Acid Ethyl Esters 1 Gm Capsule PO 1 gm DAILY CHRISSIE Administration Ondansetron HCl 4 mg 04/09/25 18:56 Ondansetron Odt 4 Mg Tablet TL Q6HR PRN Nausea / Vomiting Ondansetron HCl 4 mg 04/09/25 18:56 Ondansetron 4 Mg/2 Ml Vial IVP Q6HR PRN Nausea / Vomiting Multivit/Folic Acid/Iron 1 tab 04/10/25 08:00 04/12/25 08:53 Vitamin Tablet PO 1 tab DAILYWM CHRISSIE Administration Sodium Chloride 10 ml 04/09/25 18:56 04/12/25 08:54 Sodium Chloride Flush 0.9% 10 Ml Syringe IVP 10 ml 0100,0900,1700 CHRISSIE Administration Sodium Chloride 10 ml 04/09/25 18:56 Sodium Chloride Flush 0.9% 10 Ml Syringe IVP PRN PRN NEEDED PER PROVIDER ORDERS Tamsulosin HCl 0.4 mg 04/11/25 12:00 04/12/25 08:54 Tamsulosin 0.4 Mg Capsule PO 0.4 mg DAILY CHRISSIE Administration Thiamine HCl 100 mg 04/10/25 09:00 04/12/25 08:53 Thiamine 100 Mg Tablet PO 100 mg DAILY CHRISSIE Administration Vancomycin HCl 125 mg 04/09/25 23:00 04/12/25 08:53 Vancomycin 125 Mg Capsule PO 125 mg QID CHRISSIE Administration Objective Vital Signs/Intake & Output Reviewed Vital Signs: Yes Vital Signs: Vital Signs x48h Temp Pulse Resp BP Pulse Ox 04/12/25 08:10 36.5 C 77 18 131/80 H 98 04/12/25 04:00 36.4 C L 85 16 143/81 H 94 Intake & Output: Intake & Output 04/09/25 04/10/25 04/11/25 04/12/25 23:59 23:59 23:59 23:59 Intake Total 1200 / 1200 2931 / 2931 2576 / 2576 680 / 680 Output Total 400 / 400 915 / 915 1395 / 1395 1000 / 1000 Balance 800 / 800 2015 1181 / 1181 -320 / -320 Weight (kg) 80 kg Objective General Appearance: positive No acute distress and Alert Eyes Bilateral: positive Normal inspection and PERRL Neck: positive Nml inspection Respiratory: positive Chest non-tender, No respiratory distress and Breath sounds nml Cardiovascular: positive Regular rate & rhythm and No murmur Abdomen: positive Non-tender, Nml bowel sounds and No distention Skin: positive Color nml, Warm and Dry Extremities: positive Non-tender and No pedal edema Neurologic/Psychiatric: positive Oriented x3 Lab Results 04/11/25 04:35 04/11/25 04:35 Diagnostic Imaging Diagnostic Imaging Results: positive Final report reviewed and Read independently Assessment/Plan Problem List (1) C. difficile colitis: (2) General weakness: (3) Acute dehydration: Impression: - The following plan is for the above three assessments: Abdominal pain, diarrhea, weakness, dehydration attributed to C. diff colitis. This is in the setting of underlying generalized weakness attributed to polymyalgia rheumatica and ankylosing spondilitis, as well as chronic alcohol use. - CT shows colitis. C. diff toxin positive. Initiating Vancomycin 125mg PO QID. EOT is 04/19. Encourage P.O. food intake and oral hydration. IVF stopped. - PT evaluation was performed yesterday, they recommend Home with Home Health. - Patient is medically cleared for discharge, awaiting safe discharge. JOHN is working on likely respite care and then will move home with home health. (4) Alteration in self-care ability: Impression: - Patient with progressive decline over the last few years. Likely due to continued alcohol use and possible onset of dementia, although he has not been formally diagnosed with this yet. - Will need close outpatient neurology follow up. - JOHN is working on likely respite care and then will move home with home health. His sister is his DPOA and is very involved in his care. Continue to provide supportive care, prevent any further or increasing illness, and find appropriate dispo. (5) Alcohol use: Impression: - Patient endorses 1-2 drinks of EtOH. Pt continues to score minimally on CIWA scale, but endorses daily etoh use of "a small glass of vodka" every day. - No signs of active withdrawal: No tremors noted on outstretched hands test, no diaphoresis, agitation, changes in sensorium, and only mild confusion (was off on the date by 3 days.) Otherwise presents very pleasantly, with no acute distress. - Supportive measures and oral thiamine 100 mg/day supplementation at this time, and combo iron/folate. -May benefit from alcohol cessation counselling. (6) Skin abrasion: Impression: - Pt presents with multiple superficial wounds in various stages of healing, refer to wound care photos. - No wounds acutely septic appearing, but have given Tdap prophylaxis, and continuing empiric Augmentin for the dog bite to the left hand. - Initial wound care with wet/dry dressings, nursing staff reports dressing change this AM. (7) Open wound of left index finger due to dog bite: Impression: - Does not appear actively infected at this time. Unclear Tdap vaccine history; administered 04/10. - Prophylactic antibiotics with Augmentin for 3 days initiated (mild-moderate risk of worsening C.diff, will reassess as appropriate), EOT 04/12. Has not been worsening his bowel movements, in fact they have improved over the last two days. (8) Cough: Impression: - Likely chronic cough in setting of tobacco use. - Pt has good RA sats, denies SOA, no increased WOB was appreciated, and no cyanosis, accessory muscle use, or other respiratory s/s present. CXR with mild atelectic changes noted. - Procalcitonin negative and no consolidative findings on initial CXR. Continue to monitor. Qualifiers: Cough type: unspecified Qualified Code(s): R05.9 - Cough, unspecified (9) PTSD (post-traumatic stress disorder): Impression: - Likely would benefit from outpatient psychiatric follow up. Although patient does not express any mood disturbances, thoughts of harming himself, etc, his mental health may be contributing in part to his overall self-care deficit. (10) Polymyalgia rheumatica: Impression: - Not currently on any medications. Not in active flare up at this time. (11) Hypertension: Impression: - Continue lisinopril. Hold HCTZ, likely indefinitely, due to volume loss with ongoing diarrhea. Qualifiers: Hypertension type: primary hypertension Qualified Code(s): I10 - Essential (primary) hypertension
[2025-04-13] MEDS: CYANOCOBALAMIN 500 MCG TABLET PO SCH (09:06)
--- NOTE | 2025-04-13 12:08 | PROVIDER PROGRESS NOTE ---
Subjective Prog Note Date Prog Note Date: 04/13/25 Prog Note Time: 12:05 Subjective Subjective: No acute events overnight. Patient's continued to do well today. He is up ambulating to the chair with a walker. Ambulates to the bathroom with a walker. His sister and [id number] are both at bedside today. Very supportive. Patient met with home placed today, intends to discharge today for respite care, intake as early as tomorrow morning. Remains medically stable for discharge. Denies any fever/chills, chest pain, dyspnea, abdominal pain, nausea, vomiting. Continues to have some diarrhea. Clarifies today that he is had waxing and waning diarrhea over the last few days, not improving as dramatically as he has endorsed previously Current Medications Current Medications Current Medications: Current Medications Generic Name Dose Route Start Last Admin Trade Name Freq PRN Reason Stop Dose Admin Acetaminophen 650 mg 04/09/25 18:56 Acetaminophen 325 Mg Tablet PO Q4HR PRN Pain 1 to 4, or Fever Ascorbic Acid 500 mg 04/12/25 09:00 04/13/25 09:03 Ascorbic Acid 500 Mg Tablet PO 500 mg DAILY CHRISSIE Administration Atorvastatin Calcium 20 mg 04/11/25 21:00 04/12/25 20:51 Atorvastatin 10 Mg Tablet PO 20 mg QPM CHRISSIE Administration Bacitracin 1 packet 04/11/25 08:36 04/11/25 12:04 Bacitracin Zinc Oint 1 Packet TOP 1 packet PRN PRN Administration Skin Care Cholecalciferol 50 mcg 04/11/25 12:00 04/13/25 09:03 Cholecalciferol 25 Mcg Tablet PO 50 mcg DAILY CHRISSIE Administration Cyanocobalamin 500 mcg 04/13/25 09:00 04/13/25 09:06 Cyanocobalamin 500 Mcg Tablet PO 500 mcg DAILY CHRISSIE Administration Cyanocobalamin 1,000 mcg 04/13/25 12:04 Cyanocobalamin 1,000 Mcg/Ml Vial IM 04/13/25 12:05 ONCE ONE Enoxaparin Sodium 40 mg 04/10/25 09:00 04/13/25 09:03 Enoxaparin 40 Mg/0.4 Ml Syringe SUBQ 40 mg DAILY CHRISSIE Administration Lisinopril 40 mg 04/09/25 18:58 04/13/25 09:03 Lisinopril 20 Mg Tablet PO 40 mg DAILY CHRISSIE Administration [id number]-[id number] Ethyl Esters 1 gm 04/11/25 12:00 04/13/25 09:03 [place]-3 Acid Ethyl Esters 1 Gm Capsule PO 1 gm DAILY CHRISSIE Administration Ondansetron HCl 4 mg 04/09/25 18:56 Ondansetron Odt 4 Mg Tablet TL Q6HR PRN Nausea / Vomiting Ondansetron HCl 4 mg 04/09/25 18:56 Ondansetron 4 Mg/2 Ml Vial IVP Q6HR PRN Nausea / Vomiting Multivit/Folic Acid/Iron 1 tab 04/10/25 08:00 04/13/25 09:03 Vitamin Tablet PO 1 tab DAILYWM CHRISSIE Administration Sodium Chloride 10 ml 04/09/25 18:56 04/13/25 10:14 Sodium Chloride Flush 0.9% 10 Ml Syringe IVP 10 ml 0100,0900,1700 CHRISSIE Administration Sodium Chloride 10 ml 04/09/25 18:56 Sodium Chloride Flush 0.9% 10 Ml Syringe IVP PRN PRN NEEDED PER PROVIDER ORDERS Tamsulosin HCl 0.4 mg 04/11/25 12:00 04/13/25 09:03 Tamsulosin 0.4 Mg Capsule PO 0.4 mg DAILY CHRISSIE Administration Thiamine HCl 100 mg 04/10/25 09:00 04/13/25 09:03 Thiamine 100 Mg Tablet PO 100 mg DAILY CHRISSIE Administration Vancomycin HCl 125 mg 04/09/25 23:00 04/13/25 09:03 Vancomycin 125 Mg Capsule PO 04/19/25 22:59 125 mg QID CHRISSIE Administration Objective Vital Signs/Intake & Output Reviewed Vital Signs: Yes Vital Signs: Vital Signs x48h Temp Pulse Resp BP Pulse Ox 04/13/25 07:51 36.7 C 79 18 143/76 H 96 Intake & Output: Intake & Output 04/10/25 04/11/25 04/12/25 04/13/25 23:59 23:59 23:59 23:59 Intake Total 2931 / 2931 2576 / 2576 2110 / 2110 600 / 600 Output Total 915 / 915 1395 / 1395 1550 / 1550 375 / 375 Balance 2015 / 2015 1181 / 1181 560 / 560 225 / 225 Objective Comments/Other: GEN: No acute distress HEENT: NC/AT, normal appearance of external ears and nose. Hearing baseline. Cardiac: Regular rate and rhythm. Holosystolic murmur present in the right upper sternal border. Euvolemic on exam. Pulm: Lungs CTA bilaterally, no cough, no wheezes. No adventitial lung sounds. Normal effort on room air. Abdomen: Soft, nontender, nondistended. No rebound or guarding Extremities: Moves all 4 extremities equally. Evidence of thenar atrophy, overall tone appropriate Neuro: Face symmetric, CN II through XII intact grossly. Myopathic gait, slight Trendelenburg gait. Psych: Mood euthymic with congruent affect. Questionable historian. Judgment grossly intact. Lab Results 04/11/25 04:35 04/11/25 04:35 Assessment/Plan Problem List (1) C. difficile colitis: (2) General weakness: (3) Acute dehydration: Impression: Improving. Patient is having less diarrhea than when he first got here, but it still waxes and wanes. Initial presentation with abdominal pain, diarrhea, weakness, dehydration. Loose watery diarrhea, found to have colitis on CT, C. difficile toxin positive. Only very mild leukocytosis at 12.3 on admission. Resolved. Denies any fevers/chills, dyspnea, chest pain or other systemic signs of illness. Interestingly does not have any clear risk factors for CD colitis. No recent antibiotic exposure. - Continue oral vancomycin 125 mg 4 times daily, EOT 04/19 - Continue encourage oral hydration - PT is recommending home with home health - Home health has been ordered - Patient to discharge to [facility] for respite - If he has ongoing diarrhea intermittent diarrhea after completing treatment would favor trial of loperamide (4) Alteration in self-care ability: Impression: Stable, chronic Patient has had progressive decline over the preceding years. This has been attributable to his chronic diseases, alcohol use, and possible mild cognitive impairment. Made worse by the loss of his hearing aids. He has had multiple APS reports filed by his sisters. He has very supportive family, they are concerned about his wellbeing. - Recommend outpatient neurology follow-up, [facility] - [facility] - Plan for respite care as above - Sister is POA (5) Alcohol use: Impression: Stable. No evidence of withdrawal this hospitalization Patient endorses 1-2 drinks of alcohol daily. Has had daily alcohol use for several years. His sisters are concerned with him having driven intoxicated at times. He has had DUIs in the past. Technically would qualify for alcohol use disorder given ongoing regular use despite legal or health implications. No evidence of significant liver disease. Normal synthetic function. CIWA was recorded earlier this hospitalization, remained low. He shows no signs of acute withdrawal and is outside of the window for withdrawal. - Continue oral thiamine 100 mg daily, MVI - Patient is contemplative about abstinence, continue to encourage (6) Skin abrasion: Impression: Healing well without evidence of infection. Recall the patient presented with multiple superficial wounds in his upper and lower extremities including his right hand. These are likely secondary to multiple falls at home prior to his presentation. - Continue regular dressing changes, bacitracin (7) Open wound of left index finger due to dog bite: Impression: Stable, improving. Flexion of his fingers intact. Recall that the patient had a dog bite from his dog in the early part of April. Small puncture to the index finger. He was given Tdap on 04/10. Treated with 3 days of Augmentin which ends 04/12. - Continue to monitor clinically, assess daily for ability to flex his finger (8) Cough: Impression: Stable. No acute dyspnea. Normal saturations on room air. Likely secondary to tobacco use. - Continue encourage tobacco cessation Qualifiers: Cough type: unspecified Qualified Code(s): R05.9 - Cough, unspecified (9) PTSD (post-traumatic stress disorder): Impression: Stable. His mood is pretty good. Reports a PHQ 2 of 0. He is well supported in the community. His strengths and assets are his family and his dog, "Ryan". Denies significant night terrors. Denies SI/HI. - Continue outpatient follow-up, consider psychotherapy (10) Polymyalgia rheumatica: Impression: He has muscle weakness as above is not consistent with PMR flare. He is not on any medications for this prior to this admission. He carries this diagnosis. Unclear the qualifying factors for this diagnosis. He has some hip pain and limited range of motion. Limited morning stiffness. Unclear if he had serologic markers. Despite these, I do not think you would meet ACR criteria for classification PMR. - Recommend outpatient rheumatology follow-up (11) Hypertension: Impression: Blood pressure reasonably stable after resuming on lisinopril. Chronic history of hypertension. He is on HCTZ and lisinopril prior to his hospitalization. Both were held initially on admission. Lisinopril later was resumed. Continue holding HCTZ indefinitely in the setting of dehydration, likely a poor candidate for this medication. Will treat with lisinopril alone, tolerating reasonably well, noted cough as above - Continue lisinopril 30 mg daily - Consider CCB, but will defer to primary provider in the community I spent a total of 47 minutes in the care of this patient today. This time was spent reviewing labs, vital signs, imaging, interviewing and examining the patient, and discussing plan of care with them and their other care providers. Managing multiple chronic conditions. Prescription management as above. [id number] Qualifiers: Hypertension type: primary hypertension Qualified Code(s): I10 - Essential (primary) hypertension
[2025-04-13] MEDS: CYANOCOBALAMIN 1,000 MCG/ML VIAL IM ONE (12:29)
[2025-04-14 08:09] VITALS: O2SAT 96
[2025-04-14 12:45] VITALS: BP 146/79; TEMP 97.7
== END 2025-04-14 12:45 | disposition home health service (06) ==
LOC: EDBD → MS2 14:02 → ED 14:02 → SUATTDRO 16:44 → MS2 17:55
PROVIDERS: ADMIT Internal Medicine; ATTEND Student in an Organized Health Care Education/Training Program